=== PATIENT | male | born 1970 | race Caucasian/White ===

== ENCOUNTER 2017-07-13 07:18 | Emergency (ER) | payer OTHER ==
[~2017-07-13] VITALS: Ht 175.3 cm; Wt 96.7 kg
[~2017-07-13 07:18] MED LIST: ALBUAER2 INH; NORT10CA2 PO; OMEP40CA PO
[2017-07-13 07:27] VITALS: TEMP 36.8; Ht 175.3 cm; Wt 96.7 kg
[2017-07-13] MEDS ORDERED: PROCHLORPERAZINE 5 MG/ML 2 ML VIAL IV STA (07:37)
[2017-07-13 08:04] LABS: BASO % 0.5 %; BASO ABS # 0.04 K/uL (0-0.2); COMPLETE YES; EOS % 1.5 %; HEMATOCRIT 46.2 % (42-52); IG% 0.1 %; LYMPH % 19.8 %; LYMPH ABS # 1.44 K/uL (1.2-3.4); MEAN CORPUSCULAR HEMOGLOBIN 30.4 pg (25-34); MEAN CORPUSCULAR HGB CONC 35.3 g/dl (32-36); MEAN PLATELET VOLUME 10.2 fL (7.4-10.4); MONO % 8.7 %; NEUT % 69.4 %; PLATELET COUNT 272 K/uL (130-400); RED BLOOD COUNT 5.37 M/uL (4.7-6.1); WHITE BLOOD COUNT 7.28 K/uL (4.8-10.8)
[2017-07-13 08:26] LABS: BUN/CREATININE RATIO 8.4 (10-20); CALCIUM 8.9 mg/dl (8.5-10.1); CREATININE 1.29 mg/dl (0.60-1.40); POTASSIUM 3.3 mmol/L (3.5-5.1)
[2017-07-13 08:30] LABS: BENZODIAZEPINE, URINE NEG (NEG); COCAINE,URINE NEG (NEG); PHENCYCLIDINE, URINE NEG (NEG)
[2017-07-13] MEDS ORDERED: POTASSIUM CHLORIDE 10 MEQ TABCR PO STA (08:32)
[2017-07-13] MEDS ORDERED: PROC1TAB5 PO (08:39)
--- NOTE | 2017-07-13 08:40 | EMERGENCY ROOM VISIT NOTE ---
History First contact with patient: 07:20 Chief Complaint: VOMITING Stated Complaint: VOMITING History of Present Illness The patient is a 47 year old male who presents to the Emergency Room via EMS with complaints of nausea and vomiting since 6 PM last evening. The patient states that he has been keeping down Gatorade. He states currently he is just dry heaving. He denies any diarrhea, abdominal pain, fever, chest pain or shortness of breath. The patient states that his is leaving him for a younger man and he thinks she might have given him some of her narcotics. He states that she is a drug seeker and sees multiple providers for narcotics. He does not know what medication she takes. His son is also vomiting. Review of Systems 10 system review was performed and was negative unless stated otherwise history of present illness. Past Medical/Surgical History Medical Problems: (1) ARF (acute renal failure) (2) Chest pain (3) Dyslipidemia (4) Esophageal Reflux (5) HTN (hypertension) (6) Intermittent asthma with reliever use up to twice per week (7) Ventral hernia Surgical Problems: (1) H/O wisdom tooth extraction Family History Cancer Hypertension Kidney stones Social History Smoking Status: Former Smoker Alcohol Use: none Drug Use: none Marital Status: Housing Status: lives with family Occupation Status: unemployed Current/Historical Medications Scheduled Lisinopril (Zestril), 40 MG PO DAILY Omeprazole (Prilosec), 40 MG PO DAILY Simvastatin (Zocor), 40 MG PO QAM Scheduled PRN Albuterol (Ventolin), 2 PUFFS INH QID PRN for SOB/Wheezing Nortriptyline (Pamelor), 10 MG PO DAILY PRN for PRN Physical Exam Vital Signs Date Time Temp Pulse Resp B/P (MAP) Pulse Ox O2 Delivery O2 Flow Rate FiO2 07/13/17 07:59 83 19 177/116 94 Room Air 07/13/17 07:28 94 07/13/17 07:27 36.8 91 17 150/106 97 Room Air Physical Exam GENERAL: 47-year-old male appears in no acute distress. MENTAL: Alert and oriented 3. MOUTH: Mucosa is moist NECK: Supple, no lymphadenopathy noted. No carotid bruits noted. LUNGS: Clear auscultation without wheezes rales or rhonchi. CARDIAC: Regular rate and rhythm without murmur. Pulses is full and equal throughout. BACK: No CVA tenderness noted. ABDOMEN: Positive bowel sounds all 4 quadrants. Soft, nontender to palpation without organomegaly or masses. EXTREMITIES: No cyanosis or edema noted. Medical Decision & Procedures Laboratory Results 07/13/17 07:44 Red Blood Count 5.37, Mean Corpuscular Volume 86.0, Mean Corpuscular Hemoglobin 30.4, Mean Corpuscular Hemoglobin Concent 35.3, Mean Platelet Volume 10.2, Neutrophils (%) (Auto) 69.4, Lymphocytes (%) (Auto) 19.8, Monocytes (%) (Auto) 8.7, Eosinophils (%) (Auto) 1.5, Basophils (%) (Auto) 0.5, Neutrophils # (Auto) 5.05, Lymphocytes # (Auto) 1.44, Monocytes # (Auto) 0.63, Eosinophils # (Auto) 0.11, Basophils # (Auto) 0.04 07/13/17 07:44 Test 07/13/17 07:38 07/13/17 07:44 Urine Opiates Screen NEG (NEG) Urine Methadone, Qualitative NEG (NEG) Urine Barbiturates NEG (NEG) Urine Phencyclidine (PCP) Level NEG (NEG) Ur Amphetamine/Methamphetamine NEG (NEG) MDMA (Ecstasy) Screen NEG (NEG) Urine Benzodiazepines Screen NEG (NEG) Urine Cocaine Metabolite NEG (NEG) Urine Marijuana (THC) NEG (NEG) White Blood Count 7.28 K/uL (4.8-10.8) Red Blood Count 5.37 M/uL (4.7-6.1) Hemoglobin 16.3 g/dL (14.0-18.0) Hematocrit 46.2 % (42-52) Mean Corpuscular Volume 86.0 fL (80-100) Mean Corpuscular Hemoglobin 30.4 pg (25-34) Mean Corpuscular Hemoglobin Concent 35.3 g/dl (32-36) Platelet Count 272 K/uL (130-400) Mean Platelet Volume 10.2 fL (7.4-10.4) Neutrophils (%) (Auto) 69.4 % Lymphocytes (%) (Auto) 19.8 % Monocytes (%) (Auto) 8.7 % Eosinophils (%) (Auto) 1.5 % Basophils (%) (Auto) 0.5 % Neutrophils # (Auto) 5.05 K/uL (1.4-6.5) Lymphocytes # (Auto) 1.44 K/uL (1.2-3.4) Monocytes # (Auto) 0.63 K/uL (0.11-0.59) Eosinophils # (Auto) 0.11 K/uL (0-0.5) Basophils # (Auto) 0.04 K/uL (0-0.2) RDW Standard Deviation 41.2 fL (36.4-46.3) RDW Coefficient of Variation 13.1 % (11.5-14.5) Immature Granulocyte % (Auto) 0.1 % Immature Granulocyte # (Auto) 0.01 K/uL (0.00-0.02) Anion Gap 9.0 mmol/L (3-11) Est Creatinine Clear Calc Drug Dose 81.2 ml/min Estimated GFR () 76.0 Estimated GFR (Non- 65.6 BUN/Creatinine Ratio 8.4 (10-20) Calcium Level 8.9 mg/dl (8.5-10.1) Total Bilirubin 0.9 mg/dl (0.2-1) Direct Bilirubin 0.2 mg/dl (0-0.2) Aspartate Amino Transf (AST/SGOT) 23 U/L (15-37) Alanine Aminotransferase (ALT/SGPT) 46 U/L (12-78) Alkaline Phosphatase 68 U/L (45-117) Total Protein 7.8 gm/dl (6.4-8.2) Albumin 4.0 gm/dl (3.4-5.0) Lipase 150 U/L (73-393) Medications Administered Medications (Trade) Dose Ordered Sig/Hi Route Start Time Stop Time Status Last Admin Dose Admin Prochlorperazine Edisylate (Compazine Inj) 10 mg NOW STAT IV 07/13/17 07:37 07/13/17 07:39 DC 07/13/17 07:48 10 MG ED Course The patient was evaluated. The patient's EMR medication list were reviewed. IV access was obtained. CBC and differential, renal profile, LFTs and lipase levels were ordered. Urine drug tox screen was ordered. The patient was given Compazine 10 mg IV. She was reevaluated and was feeling better. Labs are reviewed. White count was normal. Potassium was slightly low therefore he was given KDur 10 mEq orally. Urine tox screen was negative. The patient was discharged home in stable condition. Medical Decision Differential diagnosis include gastroenteritis, GERD, peptic ulcer disease, viral gastritis [place] Drug Monitoring Program Search Results: patient reviewed within database Medication Reconcilliation Current Medication List: was personally reviewed by me Blood Pressure Screening Patient's blood pressure: Elevated blood pressure Blood pressure disposition: Referred to PCP Impression Primary Impression: Acute gastritis Additional Impressions: HTN (hypertension) Hypokalemia Departure Information Dispostion Home / Self-Care Condition GOOD Prescriptions Prochlorperazine Maleate (COMPAZINE) 10 Mg Tab 1 TAB PO Q6 for Nausea or Vomiting, #10 TAB 3 Refills Prov: Griselda Mejias PA-C 07/13/17 Referrals No Doctor, Assigned (PCP) Forms HOME CARE DOCUMENTATION FORM, IMPORTANT VISIT INFORMATION Patient Instructions ED Nausea Vomiting, [facility] Additional Instructions Push fluids. Follow bland diet. Advance diet slowly as tolerated. Take Compazine as needed for nausea or vomiting. Eat a banana daily to increase her potassium. Appointment with your family physician next week for blood pressure recheck. If symptoms persist or worsen, return to ER. Problem Qualifiers Primary Impression: Acute gastritis Gastritis type: unspecified gastritis Gastritis bleeding: without bleeding Qualified Codes: K29.00 - Acute gastritis without bleeding Additional Impressions: HTN (hypertension) Hypertension type: essential hypertension Qualified Codes: I10 - Essential ( primary) hypertension
[2017-07-13 09:42] VITALS: BP 145/92; PULSE 80; O2SAT 96
[2017-07-18] MEDS ORDERED: SIMV20TA2 PO (14:20)
[2017-07-18] MEDS ORDERED: OMEP40CA41 PO (15:26)
[2017-07-18] MEDS ORDERED: CMP/10 PO (15:26)
[2017-07-18] MEDS ORDERED: IBUP-1050 PO (15:26)
[2017-07-18] MEDS ORDERED: VNTHFA/IN INH (15:26)
[2017-07-18] MEDS ORDERED: ASPITAB42 PO (15:26)
[2017-07-18] MEDS ORDERED: LISI40TA PO (22:02)
== END 2017-07-13 09:46 | disposition home or self-care (01) ==
LOC: EDBD 07:18 → C.EDA 07:19
DX: K29.00 Acute gastritis without bleeding (principal); I10 Essential (primary) hypertension; E87.6 Hypokalemia; N17.9 Acute kidney failure, unspecified; E78.5 Hyperlipidemia, unspecified; K21.9 Gastro-esophageal reflux disease without esophagitis; Z82.49 Family history of ischemic heart disease and other diseases of the circulatory system; Z87.891 Personal history of nicotine dependence

== ENCOUNTER 2017-07-31 17:40 | Emergency (ER) | payer OTHER ==
[~2017-07-31] VITALS: Ht 175.3 cm; Wt 89.5 kg
[~2017-07-31 17:40] MED LIST changes: -ALBUAER2 INH; +ASPITAB42 PO; +CMP/10 PO; +IBUP-1050 PO; +LISI40TA PO; -NORT10CA2 PO; -OMEP40CA PO; +OMEP40CA41 PO; +SIMV20TA2 PO; +VNTHFA/IN INH
[2017-07-31 17:43] VITALS: TEMP 36.6; Ht 175.3 cm; Wt 89.5 kg
[2017-07-31] MEDS ORDERED: PROMETHAZINE HCL INJ 12.5 MG in SODIUM CHLORIDE 0.9% 50ML 50 ML IV STA (18:24)
[2017-07-31] MEDS ORDERED: OPTIRAY 320 IV PRN (18:30)
[2017-07-31] MEDS ORDERED: HYDR25TA4 PO (18:34)
[2017-07-31 18:52] LABS: URINE APPEARANCE CLEAR (CLEAR); URINE BILIRUBIN NEG (NEG); URINE COLOR YELLOW; URINE NITRITE NEG (NEG); URINE SPECIFIC GRAVITY 1.009 (1.000-1.030); UROBILINOGEN NEG (NEG); ZZUR CULT IF INDIC CLEAN CATCH NO
[2017-07-31 18:59] LABS: MANUAL MICROSCOPIC REQUIRED? NO; REVIEW REQ? NO
[2017-07-31 19:16] LABS: BASO % 0.5 %; BASO ABS # 0.05 K/uL (0-0.2); COMPLETE YES; EOS % 2.3 %; HEMATOCRIT 49.5 % (42-52); IG% 0.2 %; LYMPH % 20.2 %; MEAN CELL VOLUME 86.2 fL (80-100); MEAN CORPUSCULAR HEMOGLOBIN 30.5 pg (25-34); MEAN CORPUSCULAR HGB CONC 35.4 g/dl (32-36); MEAN PLATELET VOLUME 10.1 fL (7.4-10.4); MONO % 9.2 %; NEUT % 67.6 %; PLATELET COUNT 307 K/uL (130-400); RED BLOOD COUNT 5.74 M/uL (4.7-6.1)
[2017-07-31 19:36] LABS: ALT/SGPT 51 U/L (12-78); AST/SGOT 18 U/L (15-37); BLOOD UREA NITROGEN 10 mg/dl (7-18); BUN/CREATININE RATIO 7.7 (10-20); CALCIUM 9.3 mg/dl (8.5-10.1); CARBON DIOXIDE 25 mmol/L (21-32); CHLORIDE 102 mmol/L (98-107); CREATININE 1.23 mg/dl (0.60-1.40); GLUCOSE 120 mg/dl (70-99); POTASSIUM 3.1 mmol/L (3.5-5.1); SODIUM 139 mmol/L (136-145)
[2017-07-31 19:40] LABS: ALKALINE PHOSPHATASE 74 U/L (45-117)
[2017-07-31] MEDS ORDERED: SODIUM CHLORIDE 0.9% 1000ML 1,000 ML IV STA (19:57)
--- NOTE | 2017-07-31 20:35 | DIAGNOSTIC IMAGING REPORT ---
ABDOMEN AND PELVIS CT WITH IV CONTRAST CT DOSE: 579.27 mGy.cm HISTORY: Acute right lower quadrant abdominal pain. Initial exam. right lower quadrant abd pain TECHNIQUE: Multiaxial CT images of the abdomen and pelvis were performed following the use of intravenous contrast. 116 mL Optiray 320 IV contrast administered. A dose lowering technique was utilized adhering to the principles of ALARA. COMPARISON STUDY: CT abdomen and pelvis 08/30/2016. FINDINGS: Linear subsegmental right basilar opacity is noted suggesting scarring or atelectasis. There is a 3 mm pleural-based noncalcified pulmonary nodule of the medial basal segment left lower lobe with pleural-based noncalcified pulmonary nodule of the right lower lobe seen on image 39 series 3. Both of these findings are unchanged from comparison suggesting benign etiology. Minimal left basilar atelectasis/scarring. There is no pneumoperitoneum identified. No pneumatosis. Imaged inferior cardiac chambers are unremarkable. Prior cholecystectomy. The liver, spleen, pancreas and adrenal glands are unremarkable. No intrahepatic biliary ductal dilation. The kidneys, ureters, urinary bladder and prostate are unremarkable. Abdominal aorta is normal in both course and caliber. No bulky adenopathy identified. 7 mm periaortic lymph node seen on image 183 series 3 is likely physiologic. There is no bowel obstruction. No focal bowel wall thickening. The large bowel is also within normal limits. The appendix appears normal within the right lower quadrant without wall thickening or inflammatory changes. Soft tissues are within normal limits. The bones appear intact. Degenerative changes of the left SI joint. IMPRESSION: 1. No acute intra-abdominal or intrapelvic abnormality identified, specifically the appendix appears normal. 2. Prior cholecystectomy. Electronically signed by: Karl Riddle M.D. 07/31/2017 8:33 PM Dictated Date/Time: 07/31/2017 8:27 PM
--- NOTE | 2017-07-31 21:14 | EMERGENCY ROOM VISIT NOTE ---
History First contact with patient: 18:09 Chief Complaint: HYPERTENSION Stated Complaint: MCLEAN,DIZZY,HTN History of Present Illness The patient is a 47 year old male who presents to the Emergency Room with complaints of hypertension. The patient admits to increased stress recently. He states that he has been checking his blood pressure at home and it has been elevated today. He states that today, the blood pressure was as high as 150/ 100 and his heart rate was 111. He was recently started on hydrochlorothiazide for his blood pressure and first took this this morning. He feels this is what caused his elevated blood pressure. The patient also reports to right lower quadrant abdominal pain intermittently for the past 2 weeks. He states he has also had nausea and diarrhea today. He has had no vomiting. He reports he does have some headache and dizziness due to a head injury which occurred a few weeks ago. There has been no change in these symptoms. He denies chest pain or shortness of breath. Review of Systems A complete 10 point review of systems was reviewed with the patient with pertinent positives and negatives as per history of present illness. All else were negative. Past Medical/Surgical History Medical Problems: (1) ARF (acute renal failure) (2) Chest pain (3) Dyslipidemia (4) Esophageal Reflux (5) HTN (hypertension) (6) Intermittent asthma with reliever use up to twice per week (7) Ventral hernia Surgical Problems: (1) H/O wisdom tooth extraction Family History Cancer Hypertension Kidney stones Social History Smoking Status: Never Smoker Alcohol Use: none Drug Use: none Marital Status: Housing Status: lives with family Occupation Status: unemployed Current/Historical Medications Scheduled Albuterol Hfa (Ventolin Hfa), 2 PUFFS INH Q6H Hydrochlorothiazide (Hctz), 25 MG PO DAILY Lisinopril (Zestril), 40 MG PO DAILY Omeprazole (Prilosec), 40 MG PO DAILY Prochlorperazine Maleate (Prochlorperazine Maleate), 10 MG PO PRN UD Simvastatin (Zocor), 40 MG PO QAM Physical Exam Vital Signs Date Time Temp Pulse Resp B/P (MAP) Pulse Ox O2 Delivery O2 Flow Rate FiO2 07/31/17 21:36 78 18 138/97 97 07/31/17 20:29 77 17 135/101 98 Room Air 07/31/17 19:30 80 20 126/87 95 Room Air 07/31/17 19:13 87 07/31/17 18:56 96 16 133/91 97 Room Air 07/31/17 17:43 36.6 104 16 152/98 98 Room Air Physical Exam VITALS: Vitals are noted on the nurse's note and reviewed by myself. Vital signs stable. GENERAL: This is a 47-year-old male, in no acute distress, nondiaphoretic, well- developed well-nourished. SKIN: The skin was without rashes, erythema, edema, or bruising. HEAD: Normocephalic atraumatic. EARS: External auditory canals clear, tympanic membranes pearly myrick without erythema or effusion bilaterally. EYES: Pupils equal round and reactive to light and accommodation. Conjunctivae without injection, sclerae without icterus. Extraocular movements intact. MOUTH: Mucous membranes moist. Tonsils are not enlarged. Pharynx without erythema or exudate. NECK: Supple without nuchal rigidity. No lymphadenopathy. HEART: Regular rate and rhythm without murmurs gallops or rubs. LUNGS: Clear to auscultation bilaterally without wheezes, rales or rhonchi. ABDOMEN: Obese abdomen. Positive bowel sounds x 4. Soft, tenderness to palpation in the right lower quadrant. NEURO: Patient was alert and oriented to person place and time. Normal sensation to light and sharp touch. No focal neurological deficits. Medical Decision & Procedures ER Provider Diagnostic Interpretation: ABDOMEN AND PELVIS CT WITH IV CONTRAST CT DOSE: 579.27 mGy.cm HISTORY: Acute right lower quadrant abdominal pain. Initial exam. right lower quadrant abd pain TECHNIQUE: Multiaxial CT images of the abdomen and pelvis were performed following the use of intravenous contrast. 116 mL Optiray 320 IV contrast administered. A dose lowering technique was utilized adhering to the principles of ALARA. COMPARISON STUDY: CT abdomen and pelvis 08/30/2016. FINDINGS: Linear subsegmental right basilar opacity is noted suggesting scarring or atelectasis. There is a 3 mm pleural-based noncalcified pulmonary nodule of the medial basal segment left lower lobe with pleural-based noncalcified pulmonary nodule of the right lower lobe seen on image 39 series 3. Both of these findings are unchanged from comparison suggesting benign etiology. Minimal left basilar atelectasis/scarring. There is no pneumoperitoneum identified. No pneumatosis. Imaged inferior cardiac chambers are unremarkable. Prior cholecystectomy. The liver, spleen, pancreas and adrenal glands are unremarkable. No intrahepatic biliary ductal dilation. The kidneys, ureters, urinary bladder and prostate are unremarkable. Abdominal aorta is normal in both course and caliber. No bulky adenopathy identified. 7 mm periaortic lymph node seen on image 183 series 3 is likely physiologic. There is no bowel obstruction. No focal bowel wall thickening. The large bowel is also within normal limits. The appendix appears normal within the right lower quadrant without wall thickening or inflammatory changes. Soft tissues are within normal limits. The bones appear intact. Degenerative changes of the left SI joint. IMPRESSION: 1. No acute intra-abdominal or intrapelvic abnormality identified, specifically the appendix appears normal. 2. Prior cholecystectomy. Laboratory Results 07/31/17 18:30 Red Blood Count 5.74, Mean Corpuscular Volume 86.2, Mean Corpuscular Hemoglobin 30.5, Mean Corpuscular Hemoglobin Concent 35.4, Mean Platelet Volume 10.1, Neutrophils (%) (Auto) 67.6, Lymphocytes (%) (Auto) 20.2, Monocytes (%) (Auto) 9.2, Eosinophils (%) (Auto) 2.3, Basophils (%) (Auto) 0.5, Neutrophils # (Auto) 6.69, Lymphocytes # (Auto) 2.00, Monocytes # (Auto) 0.91, Eosinophils # (Auto) 0.23, Basophils # (Auto) 0.05 07/31/17 18:30 Test 07/31/17 18:30 White Blood Count 9.90 K/uL (4.8-10.8) Red Blood Count 5.74 M/uL (4.7-6.1) Hemoglobin 17.5 g/dL (14.0-18.0) Hematocrit 49.5 % (42-52) Mean Corpuscular Volume 86.2 fL (80-100) Mean Corpuscular Hemoglobin 30.5 pg (25-34) Mean Corpuscular Hemoglobin Concent 35.4 g/dl (32-36) Platelet Count 307 K/uL (130-400) Mean Platelet Volume 10.1 fL (7.4-10.4) Neutrophils (%) (Auto) 67.6 % Lymphocytes (%) (Auto) 20.2 % Monocytes (%) (Auto) 9.2 % Eosinophils (%) (Auto) 2.3 % Basophils (%) (Auto) 0.5 % Neutrophils # (Auto) 6.69 K/uL (1.4-6.5) Lymphocytes # (Auto) 2.00 K/uL (1.2-3.4) Monocytes # (Auto) 0.91 K/uL (0.11-0.59) Eosinophils # (Auto) 0.23 K/uL (0-0.5) Basophils # (Auto) 0.05 K/uL (0-0.2) RDW Standard Deviation 40.9 fL (36.4-46.3) RDW Coefficient of Variation 13.0 % (11.5-14.5) Immature Granulocyte % (Auto) 0.2 % Immature Granulocyte # (Auto) 0.02 K/uL (0.00-0.02) Urine Color YELLOW Urine Appearance CLEAR (CLEAR) Urine pH 6.0 (4.5-7.5) Urine Specific [place] 1.009 (1.000-1.030) Urine Protein NEG (NEG) Urine Glucose (UA) NEG (NEG) Urine Ketones NEG (NEG) Urine Occult Blood NEG (NEG) Urine Nitrite NEG (NEG) Urine Bilirubin NEG (NEG) Urine Urobilinogen NEG (NEG) Urine Leukocyte Esterase NEG (NEG) Anion Gap 12.0 mmol/L (3-11) Est Creatinine Clear Calc Drug Dose 82.2 ml/min Estimated GFR () 80.5 Estimated GFR (Non- 69.5 BUN/Creatinine Ratio 7.7 (10-20) Calcium Level 9.3 mg/dl (8.5-10.1) Total Bilirubin 0.6 mg/dl (0.2-1) Aspartate Amino Transf (AST/SGOT) 18 U/L (15-37) Alanine Aminotransferase (ALT/SGPT) 51 U/L (12-78) Alkaline Phosphatase 74 U/L (45-117) Troponin I < 0.015 ng/ml (0-0.045) Total Protein 8.5 gm/dl (6.4-8.2) Albumin 4.3 gm/dl (3.4-5.0) Globulin 4.2 gm/dl (2.5-4.0) Albumin/Globulin Ratio 1.0 (0.9-2) Lipase 186 U/L (73-393) Medications Administered Medications (Trade) Dose Ordered Sig/Hi Route Start Time Stop Time Status Last Admin Dose Admin Promethazine HCl 12.5 mg/Sodium Chloride 50.5 ml @ 204 mls/hr NOW STAT IV 07/31/17 18:24 07/31/17 18:38 DC 07/31/17 18:57 204 MLS/HR Sodium Chloride 1,000 ml @ 999 mls/hr Q1H1M STAT IV 07/31/17 19:57 07/31/17 20:57 DC 07/31/17 20:29 999 MLS/HR ECG Rate (beats per minute): 92 Rhythm: normal sinus Findings: no acute ischemic change, no ectopy Medical Decision Differential diagnosis includes appendicitis, pancreatitis, gastroenteritis, colitis, hypertensive urgency, among others. The patient is a 47-year-old male who presents today complaining of hypertension. Patient also notes abdominal pain, nausea and diarrhea. He states that the abdominal pain is new for him, although he has been here multiple times in the past for complaints of abdominal pain with many negative workups. Labs are unremarkable, with no leukocytosis, anemia or concerning electrolyte abnormalities. CT was performed and was unremarkable. The patient' s blood pressure normalized without any treatment. He was instructed to continue the hydrochlorothiazide as prescribed. I certainly do not think this is causing his hypertension as the patient suggests. He will need follow-up with his primary care provider for further evaluation. Based on the patient's presentation and work up, I feel the patient is stable for outpatient treatment. The patient was educated to return to the emergency department for any worsening of their current condition or new/concerning symptoms. He will follow up with his PCP. Medication Reconcilliation Current Medication List: was personally reviewed by me Blood Pressure Screening Patient's blood pressure: Normal blood pressure Impression Primary Impression: Right lower quadrant abdominal pain Departure Information Dispostion Home / Self-Care Condition GOOD Referrals Bernadine Marmolejo D.OHansa (PCP) Patient Instructions [facility] Additional Instructions You have been treated in the Emergency Department your Abdominal Pain. Laboratory results and imaging studies have ruled out any emergent causes for your abdominal pain which would warrant admission or surgery. For pain control, you can use the following [id number] medicines (if >12 yo): - Regular strength (325mg/tab) Tylenol (acetaminophen) 2 tabs every 4-6 hours as needed. Do not exceed 12 tablets in a 24 hour period. Avoid taking more than 4 grams (4000 mg) of Tylenol per day. This includes any other sources of acetaminophen you may take on a regular basis. - Regular strength (200 mg/tab) Advil (ibuprofen) 1-2 tabs every 4-6 hours as needed. Do not exceed a dose of 3200 mg per day. Drink plenty of water and stay well hydrated. As with any trip to the Emergency Department, you should follow-up with your Primary Care Provider from today's visit. Return to the emergency department if your symptoms persist despite treatment plan outlined above or if the following symptoms occur: increased fevers, chills , worsening nausea/vomiting, blood in your stool or urine.
[2017-07-31 21:36] VITALS: BP 138/97; PULSE 78; O2SAT 97
== END 2017-07-31 21:25 | disposition home or self-care (01) ==
LOC: C.EDB 17:41 → C.EDA 21:25
DX: R10.31 Right lower quadrant pain (principal); I10 Essential (primary) hypertension; E78.5 Hyperlipidemia, unspecified; K21.9 Gastro-esophageal reflux disease without esophagitis; N17.9 Acute kidney failure, unspecified; Z80.9 Family history of malignant neoplasm, unspecified; Z82.49 Family history of ischemic heart disease and other diseases of the circulatory system; Z84.1 Family history of disorders of kidney and ureter; J45.20 Mild intermittent asthma, uncomplicated; Z79.899 Other long term (current) drug therapy

== ENCOUNTER 2017-11-11 21:41 | Emergency (ER) | payer OTHER ==
[~2017-11-11] VITALS: Ht 172.7 cm; Wt 95.3 kg
[~2017-11-11 21:41] MED LIST changes: -ASPITAB42 PO; -IBUP-1050 PO
[2017-11-11 21:43] VITALS: TEMP 37.1; Ht 172.7 cm; Wt 95.3 kg
[2017-11-11] MEDS ORDERED: SODIUM CHLORIDE 0.9% 500ML 500 ML IV STA (22:20)
[2017-11-11 22:30] LABS: BASO % 0.5 %; BASO ABS # 0.06 K/uL (0-0.2); EOS % 2.4 %; EOS ABS # 0.26 K/uL (0-0.5); HEMOGLOBIN 16.7 g/dL (14.0-18.0); IG# 0.04 K/uL (0.00-0.02); LYMPH % 20.7 %; LYMPH ABS # 2.29 K/uL (1.2-3.4); MEAN CELL VOLUME 85.1 fL (80-100); MEAN CORPUSCULAR HEMOGLOBIN 30.3 pg (25-34); MEAN CORPUSCULAR HGB CONC 35.5 g/dl (32-36); MEAN PLATELET VOLUME 9.6 fL (7.4-10.4); MONO % 7.7 %; MONO ABS # 0.85 K/uL (0.11-0.59); NEUT % 68.3 %; NEUT ABS # 7.56 K/uL (1.4-6.5); PLATELET COUNT 304 K/uL (130-400); RED CELL DISTRIBUTION WIDTH SD 40.3 fL (36.4-46.3); WHITE BLOOD COUNT 11.06 K/uL (4.8-10.8)
[2017-11-11 22:59] LABS: ALBUMIN 4.4 gm/dl (3.4-5.0); ALT/SGPT 53 U/L (12-78); BLOOD UREA NITROGEN 11 mg/dl (7-18); CALCIUM 9.3 mg/dl (8.5-10.1); CARBON DIOXIDE 29 mmol/L (21-32); CREATININE 1.37 mg/dl (0.60-1.40); GLUCOSE 109 mg/dl (70-99); LIPASE 169 U/L (73-393); POTASSIUM 3.7 mmol/L (3.5-5.1); SODIUM 139 mmol/L (136-145)
[2017-11-11] MEDS ORDERED: ASCO1CAP3 PO (23:00)
--- NOTE | 2017-11-11 23:08 | DIAGNOSTIC IMAGING REPORT ---
ABDOMEN ULTRASOUND FOR HERNIA CLINICAL HISTORY: periumbilical pain COMPARISON STUDY: Abdomen and pelvis CT 07/31/2017. FINDINGS: Transabdominal scanning within the periumbilical region was performed. No hernia, mass, fluid collections identified at the abdominal wall. IMPRESSION: No hernia, mass, or fluid collections at the periumbilical abdominal wall. Electronically signed by: Alonzo Graham M.D. 11/11/2017 11:07 PM Dictated Date/Time: 11/11/2017 11:06 PM
[2017-11-11 23:11] LABS: ALKALINE PHOSPHATASE 75 U/L (45-117); AST/SGOT 27 U/L (15-37); TOTAL PROTEIN 8.5 gm/dl (6.4-8.2)
--- NOTE | 2017-11-11 23:18 | DIAGNOSTIC IMAGING REPORT ---
HEAD CT NONCONTRAST CT DOSE: 614.27 mGy.cm HISTORY: Headache. Hypertension. TECHNIQUE: Multiaxial CT images of the head were performed without the use of intravenous contrast. Automated exposure control was utilized for this study. A dose lowering technique was utilized adhering to the principles of ALARA. Comparison: Head CT 07/18/2017. Findings: Partial opacification of the ethmoid air cells and a 1.8 cm polyp within the left nasal cavity. This appears similar to the prior study. The mastoid air cells are clear. The calvarium and skull base are intact. The ventricles and sulci are within normal limits. There is no mass, hematoma, midline shift, or acute infarct. Impression: No significant change compared to the prior study. No acute intracranial abnormality. Electronically signed by: Alonzo Graham M.D. 11/11/2017 11:17 PM Dictated Date/Time: 11/11/2017 11:13 PM
[2017-11-11] MEDS ORDERED: OPTIRAY 320 IV PRN (23:45)
[2017-11-12 01:21] VITALS: BP 130/99; PULSE 82; O2SAT 99
--- NOTE | 2017-11-12 04:16 | EMERGENCY ROOM VISIT NOTE ---
History First contact with patient: 22:11 Chief Complaint: ABDOMINAL PAIN Stated Complaint: BLOOD PRESSURE HIGH,STOMACH PAIN Nursing Triage Summary: abd pain and htn History of Present Illness The patient is a 47 year old male who presents to the Emergency Room with complaints of occasional headache, high blood pressure abdominal discomfort for the past week or so. Patient states his blood pressure normally runs 120/80. He does take blood pressure medicine. Today's blood pressure was 150/100 at home. He has had a slight occasional headache throughout the week. Nothing severe. Patient states that his abdomen has been bothering him for the past few days throughout the abdomen describes cramping, ranging in severity 3 out of 10. Nothing makes it better or worse. He has had his gallbladder out. Patient denies chest pain, dyspnea, localized weakness, fever, chills, nausea, vomiting, diarrhea, back pain, flank pain, urinary symptoms. He is tolerating p.o. fluids and food. Review of Systems An 10 system review of systems was completed with positives and pertinent negatives listed in the HPI. Past Medical/Surgical History Medical Problems: (1) ARF (acute renal failure) (2) Chest pain (3) Dyslipidemia (4) Esophageal Reflux (5) HTN (hypertension) (6) Intermittent asthma with reliever use up to twice per week (7) Ventral hernia Surgical Problems: (1) H/O wisdom tooth extraction Cholecystectomy Family History Cancer Hypertension Kidney stones Social History Smoking Status: Never Smoker Alcohol Use: none Drug Use: none Marital Status: Housing Status: lives with family Occupation Status: unemployed Current/Historical Medications Scheduled Albuterol Hfa (Ventolin Hfa), 2 PUFFS INH Q6H Ascorbic Acid (Vitamin C), 500 MG PO DAILY Lisinopril (Zestril), 40 MG PO DAILY Omeprazole (Prilosec), 40 MG PO DAILY Simvastatin (Zocor), 40 MG PO DAILY Physical Exam Vital Signs Date Time Temp Pulse Resp B/P (MAP) Pulse Ox O2 Delivery O2 Flow Rate FiO2 11/12/17 01:21 82 18 130/99 99 Room Air 11/12/17 00:15 85 18 150/103 98 Room Air 11/11/17 22:32 86 20 157/120 99 Room Air 11/11/17 22:27 81 11/11/17 22:25 Room Air 11/11/17 21:43 37.1 99 20 171/124 99 Room Air Physical Exam VITALS: Vitals are noted on the nurse's note and reviewed by myself. Vital signs hypertensive GENERAL: Pleasant male anxious appearing, in no acute distress, nondiaphoretic, well-developed well-nourished. SKIN: The skin was without rashes, erythema, edema, or bruising. There is no tenting of the skin. Capillary reflex less than 2 seconds. HEAD: Normocephalic atraumatic. EARS: External auditory canals clear, tympanic membranes pearly myrick without erythema or effusion bilaterally. EYES: Pupils equal round and reactive to light and accommodation. Conjunctivae without injection, sclerae without icterus. Extraocular movements intact. NOSE: Patent, turbinates without inflammation or discharge. No sinus tenderness. MOUTH: Mucous membranes moist. Pharynx without erythema or exudate. Uvula midline. Airway patent. Tongue does not deviate. NECK: Supple without nuchal rigidity. No lymphadenopathy. No thyromegaly. Cervical spine is nontender. No JVD. HEART: Regular rate and rhythm without murmurs gallops or rubs. LUNGS: Clear to auscultation bilaterally without wheezes, rales or rhonchi. No dullness to percussion. No retractions or accessory muscle use. ABDOMEN: Positive bowel sounds x 4. Normal tympanic percussion. Soft, minimally tender lower abdomen, no CVA tenderness, without masses or organomegaly. Genao sign negative. No guarding or rebound tenderness. MUSCULOSKELETAL: No muscle atrophy, erythema, or edema noted. NEURO: Patient was alert and oriented to person place and time. Normal sensation to light and sharp touch. No focal neurological deficits. Medical Decision & Procedures Laboratory Results 11/11/17 22:18 Red Blood Count 5.52, Mean Corpuscular Volume 85.1, Mean Corpuscular Hemoglobin 30.3, Mean Corpuscular Hemoglobin Concent 35.5, Mean Platelet Volume 9.6, Neutrophils (%) (Auto) 68.3, Lymphocytes (%) (Auto) 20.7, Monocytes (%) (Auto) 7.7, Eosinophils (%) (Auto) 2.4, Basophils (%) (Auto) 0.5, Neutrophils # (Auto) 7.56, Lymphocytes # (Auto) 2.29, Monocytes # (Auto) 0.85, Eosinophils # (Auto) 0.26, Basophils # (Auto) 0.06 11/11/17 22:18 Test 11/11/17 22:18 White Blood Count 11.06 K/uL (4.8-10.8) Red Blood Count 5.52 M/uL (4.7-6.1) Hemoglobin 16.7 g/dL (14.0-18.0) Hematocrit 47.0 % (42-52) Mean Corpuscular Volume 85.1 fL (80-100) Mean Corpuscular Hemoglobin 30.3 pg (25-34) Mean Corpuscular Hemoglobin Concent 35.5 g/dl (32-36) Platelet Count 304 K/uL (130-400) Mean Platelet Volume 9.6 fL (7.4-10.4) Neutrophils (%) (Auto) 68.3 % Lymphocytes (%) (Auto) 20.7 % Monocytes (%) (Auto) 7.7 % Eosinophils (%) (Auto) 2.4 % Basophils (%) (Auto) 0.5 % Neutrophils # (Auto) 7.56 K/uL (1.4-6.5) Lymphocytes # (Auto) 2.29 K/uL (1.2-3.4) Monocytes # (Auto) 0.85 K/uL (0.11-0.59) Eosinophils # (Auto) 0.26 K/uL (0-0.5) Basophils # (Auto) 0.06 K/uL (0-0.2) RDW Standard Deviation 40.3 fL (36.4-46.3) RDW Coefficient of Variation 13.0 % (11.5-14.5) Immature Granulocyte % (Auto) 0.4 % Immature Granulocyte # (Auto) 0.04 K/uL (0.00-0.02) Anion Gap 8.0 mmol/L (3-11) Est Creatinine Clear Calc Drug Dose 74.6 ml/min Estimated GFR () 70.7 Estimated GFR (Non- 61.0 BUN/Creatinine Ratio 8.0 (10-20) Calcium Level 9.3 mg/dl (8.5-10.1) Magnesium Level 2.5 mg/dl (1.8-2.4) Total Bilirubin 0.5 mg/dl (0.2-1) Direct Bilirubin 0.1 mg/dl (0-0.2) Aspartate Amino Transf (AST/SGOT) 27 U/L (15-37) Alanine Aminotransferase (ALT/SGPT) 53 U/L (12-78) Alkaline Phosphatase 75 U/L (45-117) Troponin I < 0.015 ng/ml (0-0.045) Total Protein 8.5 gm/dl (6.4-8.2) Albumin 4.4 gm/dl (3.4-5.0) Lipase 169 U/L (73-393) Thyroid Stimulating Hormone (TSH) 0.695 uIu/ml (0.300-4.500) Medications Administered Medications (Trade) Dose Ordered Sig/Hi Route Start Time Stop Time Status Last Admin Dose Admin Sodium Chloride 500 ml @ 999 mls/hr Q31M STAT IV 11/11/17 22:20 11/11/17 22:50 DC 11/11/17 22:20 999 MLS/HR ED Course Prior records/ancillary studies reviewed. Triage Nursing notes reviewed. Additional history obtained from family The patient's history was concerning for headache, hypertension and abdominal pain. Differential diagnosis: Etiologies such as appendicitis, diverticulitis, PUD, biliary pathology, UTI, pancreatitis, obstruction, mesenteric ischemia, aortic pathology, infections, inflammatory bowel disease, renal colic, cardiac, and organ damage, neurologic, as well as others were entertained. Physical examination findings: As above. ER treatment provided: IV fluids, Ativan On reassessment the patient felt better. Diagnostics interpreted by me: ECG: Normal sinus, normal intervals, no acute ST-T wave changes. Impression normal sinus rhythm interpreted by myself The labs revealed mild leukocytosis. Negative troponin. Imaging studies: CT ABDOMEN & PELVIS With Contrast: Comparison 07/31/2017 Liquid stool distal colon consistent with diarrhea No evidence of wall thickening or pericolonic inflammatory change Normal caliber appendix without secondary signs Prominence of small bowel at the midabdomen with scattered fluid levels may represent enteritis or focal ileus with a developing or partial obstruction not entirely excluded No evidence of wall thickening or pneumatosis No free air or free fluid Abdominal solid organs appear within limits Status post cholecystectomy Radiologist: Derrell Chavez M.D. HISTORY: Headache. Hypertension. TECHNIQUE: Multiaxial CT images of the head were performed without the use of intravenous contrast. Automated exposure control was utilized for this study. A dose lowering technique was utilized adhering to the principles of ALA. Comparison: Head CT 07/18/2017. Findings: Partial opacification of the ethmoid air cells and a 1.8 cm polyp within the left nasal cavity. This appears similar to the prior study. The mastoid air cells are clear. The calvarium and skull base are intact. The ventricles and sulci are within normal limits. There is no mass, hematoma, midline shift, or acute infarct. Impression: No significant change compared to the prior study. No acute intracranial abnormality. Electronically signed by: Alonzo Graham M.D. Exam and history seem consistent with hypertension that resolved on its own after Ativan and abdominal discomfort that could be related to an early diarrheal illness or developing ileus. Patient states he has been moving his bowels. No history of bowel obstructions in the past. He has had his gallbladder out though. He was advised to clear liquid diet until the pain resolves in the follow-up family here in a day or 2 here in the ER sooner for abdominal pain, fevers, vomiting, worsening signs or symptoms or as needed. Patient did not have an acute abdomen on exam. He is well-appearing. He is tolerating fluids. His main concern for coming in tonight was the blood pressure. By the evaluation outlined above emergent etiologies such as appendicitis, diverticulitis, PUD, biliary pathology, UTI, pancreatitis, obstruction, mesenteric ischemia, aortic pathology, infections, inflammatory bowel disease, renal colic, as well as others were deemed relatively unlikely. He was advised to monitor his blood pressure. The pt informed about the findings as listed above. All questions were answered and pleased with the treatment. Return instructions were outlined and the patient was discharged in stable condition. Referral: The patient was referred back to their primary care physician for follow-up in 2 to 3 days for a recheck of the current condition. Case reviewed with my attending The chart was completed utilizing [employer] Speech voice recognition software. Grammatical errors, random word insertions, pronoun errors, and incomplete sentences are an occassional consequence of this system due to software limitations, ambient noise, and hardware issues. Any formal questions or concerns about the content, text, or information contained within the body of this dictation should be directly addressed to the physician food service assistant for clarification. Medical Decision As above Medication Reconcilliation Current Medication List: was personally reviewed by me Blood Pressure Screening Patient's blood pressure: Elevated blood pressure Blood pressure disposition: Elevated BP felt to be situational Impression Primary Impression: HTN (hypertension) Additional Impression: Abdominal discomfort Departure Information Dispostion Home / Self-Care Condition GOOD Forms Call Back Authorization, HOME CARE DOCUMENTATION FORM, IMPORTANT VISIT INFORMATION Patient Instructions High Blood Pressure, Abdominal Pain - [facility], My [facility] Additional Instructions DO NOT drive, drink alcohol, operate machinery, or perform dangerous activities today. You were given medications in the ER that can affect your ability to safely function or operate a vehicle. Clear liquid diet until you are your abdominal discomfort resolves. Monitor your blood pressure. It was high today. Ibuprofen(Motrin, Advil) may be used for fever or pain. Use 600mg every six hours as needed. Take with food. Avoid using more than 2400mg in a 24 hour period. Do not use 2400mg per day for more than three consecutive days without physician direction. Prolonged inappropriate use can lead to stomach upset or ulcers. (AND/OR) Acetaminophen(Tylenol) may be used for fever or pain. Use 1000mg every six hours as needed. Avoid using more than 3000mg in a 24 hour period. Rest and drink plenty of fluids as tolerated. Slow sips of water or sports drinks are recommended instead of large amounts all at once. Continue current medications. Return to the ER immediately for worsening or persistent abdominal pain, vomiting, fevers, chest pains, difficulty breathing, black or bloody stools, worsening of your condition, or as needed. Follow up with your primary physician in 24 hours for a recheck of your current condition. Problem Qualifiers Primary Impression: HTN (hypertension) Hypertension type: unspecified Qualified Codes: I10 - Essential (primary) hypertension
--- NOTE | 2017-11-12 07:14 | DIAGNOSTIC IMAGING REPORT ---
ABDOMEN AND PELVIS CT WITH IV CONTRAST CT DOSE: 718.67 mGy.cm HISTORY: Acute right lower and right mid abdominal pain right lower and mid abd pain TECHNIQUE: Multiaxial CT images of the abdomen and pelvis were performed following the use of intravenous contrast. A dose lowering technique was utilized adhering to the principles of ALARA. COMPARISON STUDY: CT abdomen and pelvis 07/31/2017 FINDINGS: Lung bases appear generally clear. There is no pneumatosis or pneumoperitoneum identified. Mild motion artifact limits evaluation of the pelvic structures. Imaged inferior cardiac chambers are unremarkable. Prior cholecystectomy. The liver, spleen, pancreas and adrenal glands are within normal limits. Minimal nonspecific bilateral perinephric stranding. No renal calculi, hydronephrosis or obstructive uropathy. Ureters urinary bladder and prostate are unremarkable. Minimal calcification of the abdominal aorta without aneurysm. No bulky adenopathy identified. Mildly prominent nondilated loops of small bowel are seen within the mid and lower abdomen with a single dilated loops seen on image 204 series 3 measuring 3.2 cm transversely. These loops are fluid-filled with air-fluid levels. Air-fluid levels are also noted throughout loops of nondilated large bowel. Appendix appears normal within the right lower quadrant of the abdomen. Soft tissues are unremarkable. Bones appear intact. IMPRESSION: 1. Normal appearance of the appendix. 2. Multiple fluid-filled loops with air-fluid levels are seen throughout both small and large bowel suggests enteritis or ileus with diarrheal state. A single loop of mildly dilated small bowel is noted within the midabdomen measuring 3.2 cm. No evidence of high-grade small bowel obstruction. 3. Prior cholecystectomy. Electronically signed by: Karl Riddle M.D. 11/12/2017 7:12 AM Dictated Date/Time: 11/12/2017 7:07 AM
== END 2017-11-12 01:29 | disposition home or self-care (01) ==
LOC: C.EDB 21:42 → C.EDC 11-12 01:29
DX: I10 Essential (primary) hypertension (principal); R10.9 Unspecified abdominal pain; E78.5 Hyperlipidemia, unspecified; K21.9 Gastro-esophageal reflux disease without esophagitis; J45.20 Mild intermittent asthma, uncomplicated; Z80.9 Family history of malignant neoplasm, unspecified; Z82.49 Family history of ischemic heart disease and other diseases of the circulatory system; Z84.1 Family history of disorders of kidney and ureter

== ENCOUNTER 2021-06-21 13:00 | Observation (INO) ==
--- NOTE | 2021-06-21 13:27 | XRay Report ---
XR chest 1V portable INDICATION: Atypical chest pain. TECHNIQUE: Single frontal radiograph of the chest was obtained. Comparison: Comparison is made to chest one view 06/19/2021 FINDINGS: No lines and tubes are seen. The cardiomediastinal silhouette is normal. Lungs are underinflated but clear. No evidence of pleural effusion or pneumothorax. IMPRESSION: No acute chest disease. ACT 112: Negative or not required by law. Electronically signed by: Eleuterio Santos M.D. 06/21/2021 1:26 PM
[2021-06-21 13:30] LABS: Basophils # (auto) 0.04 K/uL (0-0.2); Basophils % (auto) 0.4 %; Eosinophils # (auto) 0.33 K/uL (0-0.5); Eosinophils % (auto) 3.7 %; Hematocrit (blood only) 48.3 % (42-52); Immature Granulocytes # (auto) 0.02 K/uL (0.00-0.02); Immature Granulocytes % (auto) 0.2 %; Lymphocytes # (auto) 1.78 K/uL (1.2-3.4); Lymphocytes % (auto) 19.9 %; Mean Corpuscular Hemoglobin 30.5 pg (25-34); Mean Corpuscular Hgb Conc 35.2 g/dL (32-36); Mean Corpuscular Volume 86.6 fL (80-100); Mean Platelet Volume 10.2 fL (7.4-10.4); Monocytes % (auto) 8.9 %; Neutrophils # (auto) 5.97 K/uL (1.4-6.5); Neutrophils % (auto) 66.9 %; Platelet Count 379 K/uL (130-400); RDW Coefficient of Variation 12.8 % (11.5-14.5); RDW Standard Deviation 40.8 fL (36.4-46.3); Red Blood Count 5.58 M/uL (4.7-6.1); White Blood Count 8.94 K/uL (4.8-10.8)
[2021-06-21 13:41] LABS: Alanine Aminotransferase 77 U/L (12-78); Albumin Level 4.3 gm/dl (3.4-5.0); Aspartate Aminotransferase 32 U/L (15-37); BUN Creatinine Ratio 6.8 (10-20); Blood Urea Nitrogen 9 mg/dl (7-18); Calcium 9.8 mg/dl (8.5-10.1); Carbon Dioxide 24 mmol/L (21-32); Chloride 104 mmol/L (98-107); Creatinine Clr Calc Pharmacy 74.5 ml/min; Est GFR (African American) 67.5 ml/min; Est GFR (Non-African American) 58.3 ml/min; Glucose 153 mg/dl (70-99); Potassium 3.4 mmol/L (3.5-5.1); Sodium 135 mmol/L (136-145)
[2021-06-21 13:46] LABS: Albumin Globulin Ratio 1.1 (0.9-2); Alkaline Phosphatase 76 U/L (45-117); Bilirubin,Total 0.7 mg/dl (0.2-1); Total Protein 8.3 gm/dl (6.4-8.2); Troponin I < 0.015 ng/ml (0-0.045)
[2021-06-21 13:48] LABS: Partial Thromboplastin Time 27.6 Seconds (21.0-31.0)
[2021-06-21] MEDS ORDERED: OPTIRAY 320 125ml IV ONE (14:07)
--- NOTE | 2021-06-21 14:19 | CT Scan Report ---
CT angio chest PE protocol CT DOSE: 648.66 mGy.cm HISTORY: 51 years-old Male with ro PE. Acute shortness of breath TECHNIQUE: Multiple CTA images of the chest were obtained after the intravenous administration of 120 ml Optiray. Coronal and sagittal MIPS were obtained from the axial data set and were submitted for review. All measurements were obtained according to NASCET criteria. A dose lowering technique was u tilized adhering to the principles of ALARA. COMPARISON: Chest radiograph 06/21/2021 FINDINGS: CTA: The heart is normal in size. No pericardial effusion. Mild atherosclerosis of the thoracic aortic arc h without aneurysm or dissection. Patency of the imaged great vessels. The pulmonary artery appears n ormal. The subsegmental branches are not well evaluated secondary to contrast bolus timing. No fillin g defects identified to suggest thromboembolic disease. CT CHEST: Ill-defined hypodense 10 mm nodule of the posterior left thyroid. No adenopathy. No pneumothorax, ple ural effusion or overt pulmonary edema. Mild bronchial wall thickening. No airspace consolidation typ ical for pneumonia. No suspicious pulmonary nodules or masses. Inferior lung bases are partially imag ed. Small subcentimeter focus of linear scarring/atelectasis of the left upper lobe. 3 mm fissural no dule of the left midlung is suggestive of a benign lymph node. The central airways are patent. Hepatic steatosis. No acute process of the imaged upper abdomen. Unremarkable soft tissues. No acute fracture. IMPRESSION: 1. No pulmonary emboli. 2. No pleural effusion or airspace consolidation. 3. Mild bronchial wall thickening may represent bronchitis or reactive airway disease. 4. Hepatic steatosis. ACT 112: Negative or not required by law. The above report was generated using voice recognition software. It may contain grammatical, syntax o r spelling errors. Electronically signed by: Sergo Riddle M.D. 06/21/2021 2:17 PM
--- NOTE | 2021-06-21 15:26 | History & Physical Report ---
Date of Service June 21, 2021 Assessment & Plan (1) Chest pain: (2) Hypertension: (3) Dyslipidemia: (4) Esophageal reflux: Plan: Pt presents to the ED today with recurrent episodes of chest discomfort and elevated BP - Admit for observation on telemetry - Serial troponin - Repeat EKG in AM - Check ECHO - questionable hx of LVH in chart - Consult cardiology - will make pt NPO after midnight for possible stress test tomorrow - Continue home meds as appropriate - Fasting lipid panel, A1c in AM - Will give single dose of Captopril due to persistently elevated BP in the ED. Holding chlorthalidone since pt reports felt worse on this medication. Will need to determine most appropriate home BP regimen. Pt seen and reviewed with attending physician, Dr. Bains. Plan of care discussed and as outlined above. DVT Prophylaxis: SCDs Code status: Full Code Radha Gooden PA-C History of Present Illness Chief Complaint: Chest discomfort Primary Care Provider: Bernadine Marmolejo DO 51 y/o male with a PMH of HTN, dyslipidemia and GERD presents to the ED for evaluation of chest pain and elevated BP. He first started feeling poorly last week when he developed bilateral ear pain last - started Coricidin thinking it was congestion and earache relief drops. 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 No fevers, chills, sweats, vomiting or diarrhea. Pt reports that his only potential sick contact is his mother who has allergy symptoms and a possible sinus infection. On Saturday noticed bp elevated when he started with a MCLEAN and dizziness. The elevated BP and symptoms continued over the weekend. On Saturday night (2 days ago), pt developed chest discomfort and heaviness - seen in the ED and testing came back negative. Given a second dose of Lisinopril in ED with improvement in BP so pt sent home. Saw PCP yesterday and started on chlorthalidone for BP (apparently previously unable to tolerate HCTZ and amlodipine) - has taken two doses. Feels worse on this med and BP is increased again today. This morning, he developed recurrent chest discomfort similar to Saturday night. Does does not radiate. Pain is intermittent today, lasting minutes at a time. Currently, he is pain-free. No associated nausea, diaphoresis. Has had some trouble catching his breath with exertion this morning but otherwise no significant SOB. No wheezing. Today has felt heart racing but not before today. Feeling more fatigued since Saturday. No sinus congestion, sore throat. Has not been vaccinated for COVID. No recent travel. Remote hx of a cardiac work-up that was negative - done due to passing out spells that resolved after pt quit smoking. Allergies Allergy/AdvReac Type Severity Reaction Status Date / Time ondansetron Allergy Mild RASH Verified 06/21/21 15:17 sulfamethoxazole [Bactrim] Allergy Mild chest hurt Verified 06/21/21 15:17 trimethoprim [Bactrim] Allergy Mild chest hurt Verified 06/21/21 15:17 amoxicillin [From Augmentin] AdvReac Severe Verified 06/21/21 16:09 bloating and abdominal pain clavulanic acid AdvReac Severe Verified 06/21/21 16:09 [From Augmentin] bloating and abdominal pain hydrochlorothiazide AdvReac muscle Verified 06/21/21 16:09 pain, confusion, fatigue Home Medications Medication Instructions Recorded Confirmed Type ipratropium 0.5 mg-albuterol 3 mg 3 ml INHALATION QID PRN 12/02/20 06/21/21 History (2.5 mg base)/3 mL nebulization soln lisinopril 40 mg tablet 40 mg PO DAILY 12/02/20 06/21/21 History omeprazole 40 mg capsule,delayed 40 mg PO QAM 12/02/20 06/21/21 History release ascorbic acid (vitamin C) 500 mg 500 mg PO DAILY 06/21/21 06/21/21 History chewable tablet chlorthalidone 25 mg tablet 25 mg PO QAM 06/21/21 06/21/21 History nortriptyline 10 mg capsule 10 - 20 mg PO QPM PRN 06/21/21 06/21/21 History prochlorperazine maleate 5 mg 5 mg PO Q8 PRN 06/21/21 06/21/21 History tablet simethicone 125 mg capsule 125 mg PO DAILY PRN 06/21/21 06/21/21 History simvastatin 40 mg tablet 40 mg PO DAILY 06/21/21 06/21/21 History triamcinolone acetonide 55 mcg 2 spray INTRANASAL DAILY 06/21/21 06/21/21 History nasal spray aerosol (Nasacort Allergy) Past Med/Surg History Medical History Dyslipidemia Esophageal reflux Hypertension Surgical History H/O colonoscopy History of cholecystectomy Family History Mother Hypertension Other Cancer Denies family history of Heart disease Stroke Social History Smoking Status: Former smoker Tobacco Type: Cigarettes Smoking End Date: 2000 - formerly 1 PPD; Do You Dip or Chew Tobacco: Yes (1 can/day); Hx Alcohol Use: No Hx Substance Use: No Preferred Language: Amharic Communication Ability: Effective Evp Required: No Beliefs That Will Affect Care: None marital status: Current Living Situation: Spouse How many Children do You have: 2 Other Information That Helps Us Care for You: No Feels Safe at Home: Yes Safety Concerns: Feels Safe At This Time Assistive Devices: None Review of Systems Review of Systems: All systems reviewed & are unremarkable except as noted in HPI & below Constitutional: + fatigue; no fever, no chills and no sweats Eyes: no diplopia and no worsening vision Ear, Nose, Mouth, Throat: as per Subjective / HPI Respiratory: no cough, no dyspnea on exertion, no hemoptysis and no wheezing Cardiovascular: as per Subjective / HPI; no syncope and no edema Gastrointestinal: no abdominal pain, no nausea, no vomiting, no diarrhea/loose stools and no blood in stools Genitourinary: no dysuria, no urinary frequency or no hematuria Musculoskeletal: no back pain, no neck pain and no joint pain Integumentary: no rash and no skin ulcer Neurologic: no generalized weakness, no seizure-like activity, no dizziness and no headache(s) Psychiatric: no depression Physical Exam Constitutional: well developed and well nourished; no acute distress Eyes: PERRL, conjunctivae normal, anicteric sclerae ENMT: Ears: + TM abnormality (bilateral serous fluid but no significant erythema or bulging) Neck: suppple, no LAD Respiratory: no respiratory distress Auscultation: lungs clear to auscultation bilaterally; no rales, no rhonchi and no wheezes Cardiovascular: Rate/Rhythm: regular rate and regular rhythm Heart Sounds: no click, no murmur and no cardiac rub Vessels: dorsalis pedis pulses present and radial pulses present Extremities: normal capillary refill; no pedal edema Gastrointestinal (Abdomen): Inspection/Auscultation: normal bowel sounds; abdomen not distended Percussion/Palpation: abdomen soft; abdomen nontender Musculoskeletal: Head/Neck/Chest: normocephalic, head atraumatic and neck supple Skin: no rashes, warm and dry Neurologic: moves all extremities; no focal motor deficits Psychiatric: A+Ox3, euthymic affect Results & Data Results & Data ([facility]) Vital Signs (Past 12 Hours) Vital Signs Temp Pulse Resp BP Pulse Ox 06/21/21 13:16 97 06/21/21 13:08 36.9 C 82 16 166/121 H 96 Laboratory Results Laboratory Results - last 24 hr 06/21/21 06/21/21 06/21/21 13:09 13:09 13:09 WBC 8.94 RBC 5.58 Hgb 17.0 Hct 48.3 MCV 86.6 MCH 30.5 MCHC 35.2 RDW Std Deviation 40.8 RDW Coeff of Paola 12.8 Plt Count 379 MPV 10.2 Immature Gran % (Auto) 0.2 Neut % (Auto) 66.9 Lymph % (Auto) 19.9 Nuckolls % (Auto) 8.9 Eos % (Auto) 3.7 Baso % (Auto) 0.4 Neut # (Auto) 5.97 Lymph # (Auto) 1.78 Nuckolls # (Auto) 0.80 H Eos # (Auto) 0.33 Baso # (Auto) 0.04 Immature Gran # (Auto) 0.02 PT 10.0 INR 1.0 APTT 27.6 PTT Ratio 1.0 Sodium 135 L Potassium 3.4 L Chloride 104 Carbon Dioxide 24 Anion Gap 8.0 BUN 9 Creatinine 1.39 Est Cr Clr Drug Dosing 74.5 Est GFR ( Amer) 67.5 Est GFR (Non-Af Amer) 58.3 BUN/Creatinine Ratio 6.8 L Glucose 153 H Calcium 9.8 Total Bilirubin 0.7 AST 32 ALT 77 Alkaline Phosphatase 76 Troponin I < 0.015 Total Protein 8.3 H Albumin 4.3 Globulin 4.0 Albumin/Globulin Ratio 1.1 COVID-19 Eval Order SARS-CoV-2 (PCR) 06/21/21 06/21/21 14:31 14:31 WBC RBC Hgb Hct MCV MCH MCHC RDW Std Deviation RDW Coeff of Paola Plt Count MPV Immature Gran % (Auto) Neut % (Auto) Lymph % (Auto) Nuckolls % (Auto) Eos % (Auto) Baso % (Auto) Neut # (Auto) Lymph # (Auto) N[place]olls # (Auto) Eos # (Auto) Baso # (Auto) Immature Gran # (Auto) PT INR APTT PTT Ratio Sodium Potassium Chloride Carbon Dioxide Anion Gap BUN Creatinine Est Cr Clr Drug Dosing Est GFR ( Amer) Est GFR (Non-Af Amer) BUN/Creatinine Ratio Glucose Calcium Total Bilirubin AST ALT Alkaline Phosphatase Troponin I Total Protein Albumin Globulin Albumin/Globulin Ratio COVID-19 Eval Order Covid19 at [facility] SARS-CoV-2 (PCR) Pending Diagnostic Findings Chest X-ray 06/21/21 - IMPRESSION: No acute chest disease. CTA Chest 06/21/21 - IMPRESSION: 1. No pulmonary emboli. 2. No pleural effusion or airspace consolidation. 3. Mild bronchial wall thickening may represent bronchitis or reactive airway disease. 4. Hepatic steatosis. Medications Administered Discontinued Medications Ioversol (Optiray 320 125ml) 120 ml IV ONCE ONE Stop: 06/21/21 14:08 Last Admin: 06/21/21 14:07 Dose: 120 ml Documented by: [id number] Code Status & VTE Plan VTE Prophylaxis Plan VTE Prophylaxis will be ordered: Yes Supervising Physician Co-Signing Physician Notes Patient presents with chest discomfort. Denies any typical chest pain. Experiencing shortness of breath but not currently. Was found to be hypertensive on admission. She was given a dose of captopril. We will trend cardiac enzymes. EKG is nonischemic. Cardiology has been consulted. Will obtain stress echo. Likely his symptoms from GERD. I performed a history and physical examination of the patient on 06/22/21, including specifically H&P. I have discussed the patient's management with the advanced practitioner. Please refer to the 06/21/21 note for the documented findings and plan of care.
--- NOTE | 2021-06-21 17:58 | Electrocardiogram Report ---
Test Reason : Blood Pressure : / mmHG Vent. Rate : 065 BPM Atrial Rate : 065 BPM P-R Int : 138 ms QRS Dur : 100 ms QT Int : 370 ms P-R-T Axes : 018 004 014 degrees QTc Int : 384 ms Normal sinus rhythm Nonspecific ST and T wave abnormality Abnormal ECG When compared with ECG of 19-JUN-2021 16:50, QT has shortened Confirmed by Kristian Son ([id number]) on 06/21/2021 5:58:15 PM Referred By: REFERRED SELF Confirmed By:Rowdy Son
--- NOTE | 2021-06-21 18:05 | Emergency Department Note ---
History of Present Illness General Chief Complaint: Cardiac Assessment Stated Complaint: CHEST TIGHTNESS, SOB Time Seen by Provider: 06/21/21 13:32 History of Present Illness Provider Complaint: chest pain Onset (ago): day(s) 6 Duration: intermittent Onset: during rest Pain Location: left chest Pain Radiation: none Severity: moderate Maximum Pain Intensity: 4 Current Pain Intensity: 4 Quality: + aching and + heaviness Relieved By: + nothing Exacerbated By: + nothing Context: no recent illness, no recent surgery, no recent immobilization, no recent travel, no trauma/injury, no new medications or no history of DVT/PE Associated symptoms: + dyspnea; no nausea, no vomiting, no diaphoresis, no syncope, no palpitations, no cough or no leg swelling Treatments prior to arrival: none Patient states he was in the emergency department 2 days ago and followed up with his PCP yesterday. He states his PCP started him on chlorthalidone. Patient states he was post to see cardiology today but he called their office and told them about his symptoms and he was instructed to come to the emergency department. Home Medications Medication Instructions Recorded Confirmed Type ipratropium 0.5 mg-albuterol 3 mg 3 ml INHALATION QID PRN 12/02/20 06/21/21 History (2.5 mg base)/3 mL nebulization soln lisinopril 40 mg tablet 40 mg PO DAILY 12/02/20 06/21/21 History omeprazole 40 mg capsule,delayed 40 mg PO QAM 12/02/20 06/21/21 History release ascorbic acid (vitamin C) 500 mg 500 mg PO DAILY 06/21/21 06/21/21 History chewable tablet chlorthalidone 25 mg tablet 25 mg PO QAM 06/21/21 06/21/21 History nortriptyline 10 mg capsule 10 - 20 mg PO QPM PRN 06/21/21 06/21/21 History prochlorperazine maleate 5 mg 5 mg PO Q8 PRN 06/21/21 06/21/21 History tablet simethicone 125 mg capsule 125 mg PO DAILY PRN 06/21/21 06/21/21 History simvastatin 40 mg tablet 40 mg PO DAILY 06/21/21 06/21/21 History triamcinolone acetonide 55 mcg 2 spray INTRANASAL DAILY 06/21/21 06/21/21 History nasal spray aerosol (Nasacort Allergy) Allergies Allergy/AdvReac Type Severity Reaction Status Date / Time ondansetron Allergy Mild RASH Verified 06/21/21 15:17 sulfamethoxazole [Bactrim] Allergy Mild chest hurt Verified 06/21/21 15:17 trimethoprim [Bactrim] Allergy Mild chest hurt Verified 06/21/21 15:17 amoxicillin [From Augmentin] AdvReac Severe Verified 06/21/21 16:09 bloating and abdominal pain clavulanic acid AdvReac Severe Verified 06/21/21 16:09 [From Augmentin] bloating and abdominal pain hydrochlorothiazide AdvReac muscle Verified 06/21/21 16:09 pain, confusion, fatigue Past Med/Surg History Medical History Dyslipidemia Esophageal reflux Hypertension Surgical History H/O colonoscopy History of cholecystectomy Family History Mother Hypertension Other Cancer Denies family history of Heart disease Stroke Social History Smoking Status: Former smoker Tobacco Type: Cigarettes Smoking End Date: 2000 - PPD; Do You Dip or Chew Tobacco: Yes (1 can/day); Hx Alcohol Use: No Hx Substance Use: No Preferred Language: Latvian Feels Safe at Home: Yes Review of Systems A total of 10 systems reviewed and were otherwise negative Physical Exam Vital Signs Vital Signs - 24 hr 06/21/21 13:08 06/21/21 13:15 06/21/21 13:16 Temperature 36.9 C Temperature Source Oral Pulse Rate 82 Pulse Rate [Apical] Respiratory Rate 16 Respiratory Effort / Characteristics Non-Labored Spontaneous Respiratory Depth Normal Respiratory Pattern Regular Blood Pressure 166/121 H Blood Pressure [Left Arm] Blood Pressure Mean 136 Blood Pressure Mean [Left Arm] Blood Pressure Position Lying Pulse Oximetry 96 97 Oxygen Delivery Method Room Air Room Air Room Air Sepsis Recent Fever Within 48 Hours No Sepsis New/Unexplained Change in Mental Status N/A Sepsis Action Taken by Nursing No Action Required Pulse Oximetry Post Tiitration 96 06/21/21 15:15 06/21/21 17:00 Temperature Temperature Source Pulse Rate Pulse Rate [Apical] 80 80 Respiratory Rate 20 18 Respiratory Effort / Characteristics Respiratory Depth Respiratory Pattern Regular Blood Pressure Blood Pressure [Left Arm] 148/99 H 161/111 H Blood Pressure Mean Blood Pressure Mean [Left Arm] 115 127 Blood Pressure Position Pulse Oximetry 98 98 Oxygen Delivery Method Room Air Room Air Sepsis Recent Fever Within 48 Hours Sepsis New/Unexplained Change in Mental Status Sepsis Action Taken by Nursing Pulse Oximetry Post Tiitration Physical Exam GENERAL: He is oriented to person, place, and time. He appears well-developed and well-nourished. He does not appear distressed. HENT: Exam performed. - Head: Normocephalic and atraumatic. - Right Ear: External ear normal. No mastoid tenderness. - Left Ear: External ear normal. No mastoid tenderness. - Mouth/Throat: The oropharynx is clear and moist. No trismus in the jaw. No dental abscesses or uvula swelling. No oropharyngeal exudate or tonsillar abscesses. EYES: Conjunctivae and EOM are normal. Pupils are equal, round, and reactive to light. Right eye exhibits no discharge. Left eye exhibits no discharge. No scleral icterus. NECK: Normal range of motion. Neck supple. No JVD present. No spinous process tenderness present. No carotid bruit present. No rigidity. No tracheal deviation and normal range of motion present. No Brudzinski's sign and no Kernig's sign noted. CV: Normal rate, regular rhythm, normal heart sounds and intact distal pulses. There is no peripheral edema. Palpable radial pulses bue. PULM/CHEST: Effort normal and breath sounds normal. No respiratory distress. No stridor. He has no wheezes. He has no rales. - Chest Wall: He exhibits no tenderness. ABD: The abdomen is soft. Bowel sounds are normal. He has no distension. No mass is present. There is no tenderness. There is no rebound, no guarding, no Genao's sign and no tenderness at McBurney's point. Rovsig negative. MUSC/SKEL: Normal range of motion. There is no peripheral edema, tenderness or deformity. LYMPH: No cervical adenopathy. NEURO: He is alert and oriented to person, place, and time. He has normal strength. No cranial nerve deficit or sensory deficit. Coordination and gait normal. GCS eye subscore is 4. GCS verbal subscore is 5. GCS motor subscore is 6. Cerebellar tests wnl. SKIN: Skin is warm and dry. He is not diaphoretic. PSYCH: He has a normal mood and affect. Behavior is normal. Judgment and thought content normal. Course Course 1332: The patient was evaluated in room A11. A complete history and physical exam was performed Cardiac monitoring: An order was placed for continuous cardiac monitoring. The monitor shows a rate of 70 with sinus rhythm 1439: Vital signs stable. Labs and imaging within normal limits. Given the patient's third visit to a healthcare provider in last 3 days for chest pain the patient will be brought in for chest pain rule out ACS. Will admit to the [facility] Hospitalist team. Administered Medications Discontinued Medications Ioversol (Optiray 320 125ml) 120 ml IV ONCE ONE Stop: 06/21/21 14:08 Last Admin: 06/21/21 14:07 Dose: 120 ml Documented by: [id number] Medical Decision Making Laboratory Data Result diagrams: 06/21/21 13:09 06/21/21 13:09 Labs: Lab Results 06/21/21 06/21/21 06/21/21 Range/Units 13:09 13:09 13:09 WBC 8.94 (4.8-10.8) K/uL RBC 5.58 (4.7-6.1) M/uL Hgb 17.0 (14.0-18.0) g/dL Hct 48.3 (42-52) % MCV 86.6 (80-100) fL MCH 30.5 (25-34) pg MCHC 35.2 (32-36) g/dL RDW Std Deviation 40.8 (36.4-46.3) fL RDW Coeff of Paola 12.8 (11.5-14.5) % Plt Count 379 (130-400) K/uL MPV 10.2 (7.4-10.4) fL Immature Gran % (Auto) 0.2 % Neut % (Auto) 66.9 % Lymph % (Auto) 19.9 % Toole % (Auto) 8.9 % Eos % (Auto) 3.7 % Baso % (Auto) 0.4 % Neut # (Auto) 5.97 (1.4-6.5) K/uL Lymph # (Auto) 1.78 (1.2-3.4) K/uL Toole # (Auto) 0.80 H (0.11-0.59) K/uL Eos # (Auto) 0.33 (0-0.5) K/uL Baso # (Auto) 0.04 (0-0.2) K/uL Immature Gran # (Auto) 0.02 (0.00-0.02) K/uL PT 10.0 (9.0-12.0) Seconds INR 1.0 (0.9-1.1) APTT 27.6 (21.0-31.0) Seconds PTT Ratio 1.0 Sodium 135 L (136-145) mmol/L Potassium 3.4 L (3.5-5.1) mmol/L Chloride 104 (98-107) mmol/L Carbon Dioxide 24 (21-32) mmol/L Anion Gap 8.0 (3-11) BUN 9 (7-18) mg/dl Creatinine 1.39 (0.6-1.4) mg/dl Est Cr Clr Drug Dosing 74.5 ml/min Est GFR ( Amer) 67.5 ml/min Est GFR (Non-Af Amer) 58.3 ml/min BUN/Creatinine Ratio 6.8 L (10-20) Glucose 153 H (70-99) mg/dl Calcium 9.8 (8.5-10.1) mg/dl Total Bilirubin 0.7 (0.2-1) mg/dl AST 32 (15-37) U/L ALT 77 (12-78) U/L Alkaline Phosphatase 76 (45-117) U/L Troponin I < 0.015 (0-0.045) ng/ml Total Protein 8.3 H (6.4-8.2) gm/dl Albumin 4.3 (3.4-5.0) gm/dl Globulin 4.0 (2.5-4.0) gm/dl Albumin/Globulin Ratio 1.1 (0.9-2) COVID-19 Eval Order SARS-CoV-2 (PCR) (Negative) 06/21/21 06/21/21 Range/Units 14:31 14:31 WBC (4.8-10.8) K/uL RBC (4.7-6.1) M/uL Hgb (14.0-18.0) g/dL Hct (42-52) % MCV (80-100) fL MCH (25-34) pg MCHC (32-36) g/dL RDW Std Deviation (36.4-46.3) fL RDW Coeff of Paola (11.5-14.5) % Plt Count (130-400) K/uL MPV (7.4-10.4) fL Immature Gran % (Auto) % Neut % (Auto) % Lymph % (Auto) % Toole % (Auto) % Eos % (Auto) % Baso % (Auto) % Neut # (Auto) (1.4-6.5) K/uL Lymph # (Auto) (1.2-3.4) K/uL Toole # (Auto) (0.11-0.59) K/uL Eos # (Auto) (0-0.5) K/uL Baso # (Auto) (0-0.2) K/uL Immature Gran # (Auto) (0.00-0.02) K/uL PT (9.0-12.0) Seconds INR (0.9-1.1) APTT (21.0-31.0) Seconds PTT Ratio Sodium (136-145) mmol/L Potassium (3.5-5.1) mmol/L Chloride (98-107) mmol/L Carbon Dioxide (21-32) mmol/L Anion Gap (3-11) BUN (7-18) mg/dl Creatinine (0.6-1.4) mg/dl Est Cr Clr Drug Dosing ml/min Est GFR ( Amer) ml/min Est GFR (Non-Af Amer) ml/min BUN/Creatinine Ratio (10-20) Glucose (70-99) mg/dl Calcium (8.5-10.1) mg/dl Total Bilirubin (0.2-1) mg/dl AST (15-37) U/L ALT (12-78) U/L Alkaline Phosphatase (45-117) U/L Troponin I (0-0.045) ng/ml Total Protein (6.4-8.2) gm/dl Albumin (3.4-5.0) gm/dl Globulin (2.5-4.0) gm/dl Albumin/Globulin Ratio (0.9-2) COVID-19 Eval Order Covid19 at [facility] SARS-CoV-2 (PCR) NEGATIVE (Negative) Imaging Data Chest x-ray: Radiologist's impression: XR chest 1V portable INDICATION: Atypical chest pain. TECHNIQUE: Single frontal radiograph of the chest was obtained. Comparison: Comparison is made to chest one view 06/19/2021 FINDINGS: No lines and tubes are seen. The cardiomediastinal silhouette is normal. Lungs are underinflated but clear. No evidence of pleural effusion or pneumothorax. IMPRESSION: No acute chest disease. ACT 112: Negative or not required by law. Electronically signed by: Eleuterio Santos M.D. 06/21/2021 1:26 PM Dictated: 06/21/21 1325Transcribed: 06/21/[address] scan - chest: Radiologist's impression: CT angio chest PE protocol CT DOSE: 648.66 mGy.cm HISTORY: 51 years-old Male with ro PE. Acute shortness of breath TECHNIQUE: Multiple CTA images of the chest were obtained after the intravenous administration of 120 ml Optiray. Coronal and sagittal MIPS were obtained from the axial data set and were submitted for review. All measurements were obtained according to NASCET criteria. A dose lowering technique was utilized adhering to the principles of ALARA. COMPARISON: Chest radiograph 06/21/2021 FINDINGS: CTA: The heart is normal in size. No pericardial effusion. Mild atherosclerosis of the thoracic aortic arch without aneurysm or dissection. Patency of the imaged great vessels. The pulmonary artery appears normal. The subsegmental branches are not well evaluated secondary to contrast bolus timing. No filling defects identified to suggest thromboembolic disease. CT CHEST: Ill-defined hypodense 10 mm nodule of the posterior left thyroid. No adenopathy. No pneumothorax, pleural effusion or overt pulmonary edema. Mild bronchial wall thickening. No airspace consolidation typical for pneumonia. No suspicious pulmonary nodules or masses. Inferior lung bases are partially imaged. Small subcentimeter focus of linear scarring/atelectasis of the left upper lobe. 3 mm fissural nodule of the left midlung is suggestive of a benign lymph node. The central airways are patent. Hepatic steatosis. No acute process of the imaged upper abdomen. Unremarkable soft tissues. No acute fracture. IMPRESSION: 1. No pulmonary emboli. 2. No pleural effusion or airspace consolidation. 3. Mild bronchial wall thickening may represent bronchitis or reactive airway disease. 4. Hepatic steatosis. ACT 112: Negative or not required by law. The above report was generated using voice recognition software. It may contain grammatical, syntax or spelling errors. Electronically signed by: Sergo Riddle M.D. 06/21/2021 2:17 PM Dictated: 06/21/21 1411Transcribed: 06/21/21 141 [facility] Narrative 1332: The patient was evaluated in room A11. A complete history and physical exam was performed Cardiac monitoring: An order was placed for continuous cardiac monitoring. The monitor shows a rate of 70 with sinus rhythm 1439: Vital signs stable. Labs and imaging within normal limits. Given the patient's third visit to a healthcare provider in last 3 days for chest pain the patient will be brought in for chest pain rule out ACS. Will admit to the [facility] hospitalist team. Impression & Plan Chest pain Discharge Plan Visit Data Chief Complaint: Cardiac Assessment Stated Complaint: CHEST TIGHTNESS, SOB Discharge Problem: Chest pain Patient Disposition: Being Evaluated by Hospitalist Forms Stand Alone Forms: [facility] [employer] Prescriptions Prescriptions: No Action ipratropium-albuterol 0.5 mg-3 mg(2.5 mg base)/3 mL solution for nebulization 3 ml INHALATION QID PRN (Reason: Shortness Of Breath Or Wheezing) RF: 0 omeprazole 40 mg capsule,delayed release(DR/EC) 40 mg PO QAM RF: 0 lisinopril 40 mg tablet 40 mg PO DAILY RF: 0 chlorthalidone 25 mg tablet 25 mg PO QAM RF: 0 triamcinolone acetonide [Nasacort Allergy] 55 mcg Aerosol,[place] 2 spray INTRANASAL DAILY RF: 0 nortriptyline 10 mg capsule 10 - 20 mg PO QPM PRN (Reason: Abdominal Pain) RF: 0 prochlorperazine maleate 5 mg tablet 5 mg PO Q8 PRN (Reason: Nausea) RF: 0 ascorbic acid (vitamin C) 500 mg Tablet,Chewable 500 mg PO DAILY RF: 0 simethicone 125 mg Capsule 125 mg PO DAILY PRN (Reason: Gi Upset) RF: 0 simvastatin 40 mg tablet 40 mg PO DAILY RF: 0 Referrals Referrals: Bernadine Marmolejo DO [Primary Care Provider] -
[2021-06-21] MEDS ORDERED: ACETAMINOPHEN 325 MG TAB PO PRN (21:21)
[2021-06-21] MEDS ORDERED: ALBUT/IPRATROP 3MG/0.5MG NEB 3 ML VIAL INH PRN (21:21)
[2021-06-22 07:55] LABS: Chol HDL Ratio 6; Cholesterol 212 mg/dl (0-200); HDL Cholesterol 37 mg/dl; LDL Cholesterol Calculated 137 mg/dl; Triglycerides 189 mg/dl (0-150); Troponin I < 0.015 ng/ml (0-0.045); VLDL Cholesterol 38 mg/dl
[2021-06-22] MEDS ORDERED: lisinopril 40 MG TAB PO SCH (09:00)
[2021-06-22] MEDS ORDERED: TRIAMCINOLONE ACET NASAL SPRAY 10.8ML BTL SCH (09:00)
[2021-06-22] MEDS ORDERED: SIMVASTATIN 40 MG TAB PO SCH (09:00)
[2021-06-22] MEDS ORDERED: PANTOprazole 40 MG TAB PO SCH (09:00)
--- NOTE | 2021-06-22 09:15 | Cardiology Consultation ---
Date of Consultation June 22, 2021 Assessment & Plan (1) Atypical chest pain: (2) Hypertension: (3) Dyslipidemia: 51-year-old patient admitted with episode of chest burning. Cardiac enzymes undetectable. No ischemic ECG changes. Nonspecific ST-T wave abnormality unchanged compared to prior tracing. Risk factors including hypertension, dyslipidemia, and former tobacco abuse. No dysrhythmias per telemetry monitoring. Recommend resting 2D transthoracic echocardiogram and exercise stress echocardiography for further stratification. Patient agreeable. Further recommendations pending review of testing. Discontinue chlorthalidone due to possible drug reaction. A.m. blood pressures improved. Continue to monitor. History of Present Illness Reason for Consultation: Chest pain Requesting Physician: Dr. Bains Attending Physician: Jesus Bains MD History of Present Illness 51-year-old patient present to the emergency department with chest discomfort. Describes a burning sensation across his chest occurring at rest. Symptoms lasted from 10-20 minutes. The discomfort seem to wax and wane. No associated shortness of breath, palpitations, lightheadedness, or dizziness. Denies exertional chest pain, tightness, or pressure. Denies exertional shortness of breath. No orthopnea, PND, or lower extremity edema. Chest discomfort has resolved overnight. Telemetry reveals sinus rhythm. Currently feeling well from a cardiovascular perspective. Denies personal history of coronary disease, congestive heart failure, or rheumatic fever as a child. Admits to remote history of tobacco use. Denies family history of premature coronary disease. Allergies Allergy/AdvReac Type Severity Reaction Status Date / Time ondansetron Allergy Mild RASH Verified 06/21/21 15:17 sulfamethoxazole [Bactrim] Allergy Mild chest hurt Verified 06/21/21 15:17 trimethoprim [Bactrim] Allergy Mild chest hurt Verified 06/21/21 15:17 amoxicillin [From Augmentin] AdvReac Severe Verified 06/21/21 16:09 bloating and abdominal pain clavulanic acid AdvReac Severe Verified 06/21/21 16:09 [From Augmentin] bloating and abdominal pain hydrochlorothiazide AdvReac muscle Verified 06/21/21 16:09 pain, confusion, fatigue Home Medications Medication Instructions Recorded Confirmed Type ipratropium 0.5 mg-albuterol 3 mg 3 ml INHALATION QID PRN 12/02/20 06/21/21 History (2.5 mg base)/3 mL nebulization soln lisinopril 40 mg tablet 40 mg PO DAILY 12/02/20 06/21/21 History omeprazole 40 mg capsule,delayed 40 mg PO QAM 12/02/20 06/21/21 History release ascorbic acid (vitamin C) 500 mg 500 mg PO DAILY 06/21/21 06/21/21 History chewable tablet chlorthalidone 25 mg tablet 25 mg PO QAM 06/21/21 06/21/21 History nortriptyline 10 mg capsule 10 - 20 mg PO QPM PRN 06/21/21 06/21/21 History prochlorperazine maleate 5 mg 5 mg PO Q8 PRN 06/21/21 06/21/21 History tablet simethicone 125 mg capsule 125 mg PO DAILY PRN 06/21/21 06/21/21 History simvastatin 40 mg tablet 40 mg PO DAILY 06/21/21 06/21/21 History triamcinolone acetonide 55 mcg 2 spray INTRANASAL DAILY 06/21/21 06/21/21 History nasal spray aerosol (Nasacort Allergy) Patient History Medical History Dyslipidemia Esophageal reflux Hypertension Surgical History H/O colonoscopy History of cholecystectomy Family History Mother Hypertension Other Cancer Denies family history of Heart disease Stroke Social History Smoking Status: Former smoker Tobacco Type: Cigarettes Smoking End Date: 2000 - formerly 1 PPD; Do You Dip or Chew Tobacco: Yes (1 can/day); Hx Alcohol Use: No Hx Substance Use: No Preferred Language: Beninese Communication Ability: Effective Filament Tester Required: No Beliefs That Will Affect Care: None Current Living Situation: Spouse Other Information That Helps Us Care for You: No Feels Safe at Home: Yes Safety Concerns: Feels Safe At This Time Assistive Devices: None Review of Systems Review of Systems: All systems reviewed & are unremarkable except as noted in Subjective Physical Exam Constitutional: well developed and well nourished; no acute distress Respiratory: normal respiratory effort; no respiratory distress, no labored breathing and no retractions Auscultation: breath sounds present, no diminished lung sounds, no crackles, no rales, no rhonchi and no wheezes Cardiovascular: Rate/Rhythm: regular rate and regular rhythm Heart Sounds: normal S1 and normal S2; no murmur Vessels: radial pulses present; no JVD and no carotid bruit Extremities: no edema Gastrointestinal (Abdomen): Inspection/Auscultation: abdomen normal to inspection and normal bowel sounds; abdomen not distended Percussion/Palpation: abdomen soft; abdomen nontender, no guarding and abdomen not rigid Neurologic: CN's II-XI intact bilaterally and moves all extremities; no focal motor deficits Motor/Sensory: no tremor Psychiatric: A+Ox3, euthymic affect Results & Data ([facility]) Vital Signs (Past 12 Hours) Vital Signs Temp Pulse Pulse Resp BP Pulse Ox 06/22/21 08:50 36.6 C 88 18 134/84 95 06/22/21 03:31 36.7 C 88 20 135/85 95 06/22/21 00:25 36.5 C 75 18 134/95 97 06/21/21 22:58 93 H 06/21/21 21:54 81 06/21/21 21:21 36.9 C 92 H 18 168/107 H 95 (1) Hypertension Hypertension type: unspecified Qualified Code(s): I10 - Essential (primary) hypertension
[2021-06-22 09:40] LABS: Estimated Average Glucose 120 mg/dl; Hemoglobin A1C 5.8 % (4.5-5.6)
--- NOTE | 2021-06-22 14:15 | Discharge Summary ---
Date of Service June 22, 2021 Admission HPI Per Admitting Provider 51 y/o male with a PMH of HTN, dyslipidemia and GERD presents to the ED for evaluation of chest pain and elevated BP. He first started feeling poorly last week when he developed bilateral ear pain last - started Coricidin thinking it was congestion and earache relief drops. 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 No fevers, chills, sweats, vomiting or diarrhea. Pt reports that his only potential sick contact is his mother who has allergy symptoms and a possible sinus infection. On Saturday noticed bp elevated when he started with a MCLEAN and dizziness. The elevated BP and symptoms continued over the weekend. On Saturday night (2 days ago), pt developed chest discomfort and heaviness - seen in the ED and testing came back negative. Given a second dose of Lisinopril in ED with improvement in BP so pt sent home. Saw PCP yesterday and started on chlorthalidone for BP (apparently previously unable to tolerate HCTZ and amlodipine) - has taken two doses. Feels worse on this med and BP is increased again today. This morning, he developed recurrent chest discomfort similar to Saturday night. Does does not radiate. Pain is intermittent today, lasting minutes at a time. Currently, he is pain-free. No associated nausea, diaphoresis. Has had some trouble catching his breath with exertion this morning but otherwise no significant SOB. No wheezing. Today has felt heart racing but not before today. Feeling more fatigued since Saturday. No sinus congestion, sore throat. Has not been vaccinated for COVID. No recent travel. Remote hx of a cardiac work-up that was negative - done due to passing out spells that resolved after pt quit smoking. Admission Exam Per Admitting Provider Constitutional: well developed and well nourished; no acute distress Eyes: PERRL, conjunctivae normal, anicteric sclerae ENMT: Ears: + TM abnormality (bilateral serous fluid but no significant erythema or bulging) Neck: suppple, no LAD Respiratory: no respiratory distress Auscultation: lungs clear to auscultation bilaterally; no rales, no rhonchi and no wheezes Cardiovascular: Rate/Rhythm: regular rate and regular rhythm Heart Sounds: no click, no murmur and no cardiac rub Vessels: dorsalis pedis pulses present and radial pulses present Extremities: normal capillary refill; no pedal edema Gastrointestinal (Abdomen): Inspection/Auscultation: normal bowel sounds; abdomen not distended Percussion/Palpation: abdomen soft; abdomen nontender Musculoskeletal: Head/Neck/Chest: normocephalic, head atraumatic and neck supple Skin: no rashes, warm and dry Neurologic: moves all extremities; no focal motor deficits Psychiatric: A+Ox3, euthymic affect Principal Diagnosis chest pain Discharge Exam General: A&Ox3 HENT: NCAT, MMM, EOMI Eyes: PERRLA Neck: Supple, normal range of motion CVS: normal rate and rhythm Resp: b/l good breath suonds Abdomen: Soft, ND/NT, +BS Extremities: No c/c/e Neuro: face symmetric, strength grossly equal, no focal deficit Skin: warm and dry, no rashes/lesions/errythema MSK: normal ROM, no joint swelling/erythema Discharge Data Allergies Allergy/AdvReac Type Severity Reaction Status Date / Time ondansetron Allergy Mild RASH Verified 06/21/21 15:17 sulfamethoxazole [Bactrim] Allergy Mild chest hurt Verified 06/21/21 15:17 trimethoprim [Bactrim] Allergy Mild chest hurt Verified 06/21/21 15:17 amoxicillin [From Augmentin] AdvReac Severe Verified 06/21/21 16:09 bloating and abdominal pain clavulanic acid AdvReac Severe Verified 06/21/21 16:09 [From Augmentin] bloating and abdominal pain hydrochlorothiazide AdvReac muscle Verified 06/21/21 16:09 pain, confusion, fatigue Consultations 06/21/21 14:39 ED Decision to Admit Stat 06/21/21 16:16 Consult Cardiology Routine Ordered Studies 06/21/21 13:32 CT angio chest PE protocol Stat Hospital Course (1) Chest pain: (2) Hypertension: (3) Dyslipidemia: (4) Esophageal reflux: Pt presents to the ED today with recurrent episodes of chest discomfort and elevated BP. Patient presented with chest discomfort. He denied any significant pain but describes it as a burning kind of sensation. Troponins were negative. EKG was nonischemic. Cardiac stress test was negative. Allergy evaluated the patient. His hypertension improved. On the day of discharge patient is doing okay. Hemodynamically he was doing fine. Chest discomfort resolved. His symptoms are likely secondary to GERD patient was referred to gastroenterology as an outpatient. Patient was discharged in stable condition. Chlorthalidone was stopped at discharge due to possible reaction. Total Time Total Time Spent Total Time Spent (In Minutes): 25 Discharge Plan Discharge Items Patient Disposition: Home - Self-Care Reason For Visit: CHEST PAIN Discharge Diagnosis: Chest pain Activity: Resume your previous activity Non-emergency contact: Primary Care Provider Call non-emergency contact if: your symptoms worsen Follow-up/Referrals: Bernadine Marmolejo, [Primary Care Provider] - (Date & Time 06/26/2021 9:00 AM Provider Ric Mercedes MD Department [facility] ) Diet: Heart Healthy Addtl Attending Provider Instructions: Your chest burning symptoms are likely secondary to GERD. Gastroenterology referral has been sent. Pending Studies at Discharge: No Stand-Alone Forms: mBlox, Smoking Cessation Medications and DC Order Prescriptions: Continued ipratropium-albuterol 0.5 mg-3 mg(2.5 mg base)/3 mL solution for nebulization 3 ml INHALATION QID PRN (Reason: Shortness Of Breath Or Wheezing) RF: 0 omeprazole 40 mg capsule,delayed release(DR/EC) 40 mg PO QAM RF: 0 lisinopril 40 mg tablet 40 mg PO DAILY RF: 0 triamcinolone acetonide [Nasacort Allergy] 55 mcg Aerosol,[place] 2 spray INTRANASAL DAILY RF: 0 nortriptyline 10 mg capsule 10 - 20 mg PO QPM PRN (Reason: Abdominal Pain) RF: 0 prochlorperazine maleate 5 mg tablet 5 mg PO Q8 PRN (Reason: Nausea) RF: 0 ascorbic acid (vitamin C) 500 mg Tablet,Chewable 500 mg PO DAILY RF: 0 simethicone 125 mg Capsule 125 mg PO DAILY PRN (Reason: Gi Upset) RF: 0 simvastatin 40 mg tablet 40 mg PO DAILY RF: 0 Discontinued chlorthalidone 25 mg tablet 25 mg PO QAM RF: 0 Discharge Orders: Discharge Order (Routine); Ordered 06/22/21 Ordered By: Jesus Bains Admission Data Admit Date/Time: 06/21/21 15:12 Attending Provider: Jesus Bains Admit Provider: Jesus Bains Primary Care Provider: Bernadine Marmolejo Other Providers: Winston Sawant ; Jesus Bains
--- NOTE | 2021-06-23 16:48 | Electrocardiogram Report ---
Test Reason : Blood Pressure : / mmHG Vent. Rate : 070 BPM Atrial Rate : 070 BPM P-R Int : 150 ms QRS Dur : 092 ms QT Int : 394 ms P-R-T Axes : 054 006 012 degrees QTc Int : 425 ms Normal sinus rhythm Normal ECG When compared with ECG of 21-JUN-2021 13:49, (unconfirmed) No significant change was found Confirmed by Kristian Son ([id number]) on 06/23/2021 4:47:59 PM Referred By: REFERRED SELF Confirmed By:Rowdy Son
--- NOTE | 2021-06-23 17:28 | Electrocardiogram Report ---
Test Reason : Blood Pressure : / mmHG Vent. Rate : 087 BPM Atrial Rate : 087 BPM P-R Int : 144 ms QRS Dur : 092 ms QT Int : 360 ms P-R-T Axes : 072 017 032 degrees QTc Int : 433 ms Normal sinus rhythm Normal ECG When compared with ECG of 21-JUN-2021 17:42, (unconfirmed) No significant change was found Confirmed by Kristian Son ([id number]) on 06/23/2021 5:28:13 PM Referred By: REFERRED SELF Confirmed By:Rowdy Son
--- NOTE | 2021-06-24 07:10 | Electrocardiogram Report ---
Test Reason : Blood Pressure : / mmHG Vent. Rate : 076 BPM Atrial Rate : 076 BPM P-R Int : 146 ms QRS Dur : 094 ms QT Int : 374 ms P-R-T Axes : 059 005 008 degrees QTc Int : 420 ms Normal sinus rhythm Normal ECG When compared with ECG of 21-JUN-2021 13:08, No significant change was found Confirmed by Kristian Son ([id number]) on 06/24/2021 7:09:38 AM Referred By: REFERRED SELF Confirmed By:Rowdy Son
== END 2021-06-22 15:01 | disposition home or self-care (01) ==
LOC: ED 13:00 → 2S 13:00

== ENCOUNTER 2021-09-11 23:34 | Inpatient (IN) ==
[2021-09-12] MEDS ORDERED: dexAMETHasone**PF** 10 MG/ML VIAL IV ONE (01:18)
[2021-09-12] MEDS ORDERED: SODIUM CHLORIDE 0.9% 1000ML 1,000 ML IV ONE (01:18)
[2021-09-12] MEDS ORDERED: diphenhydrAMINE 50 MG/ML VIAL IV STA (01:18)
[2021-09-12] MEDS ORDERED: HYDROcodone/HOMATROPINE SYRUP 5MG/1.5MG 5ML UDP PO STA (01:18)
--- NOTE | 2021-09-12 01:19 | Emergency Department Note ---
Impression & Plan COVID-19, Pharyngeal edema, Swollen uvula ED Provider Note Name: MYLES FELDMAN Age: 51 Sex: M Arrives Via: Walk-In Informant: Patient ED Provider: William Vitale MD Chief Complaint: Sore throat Impression: As per impressions above Medical Decision Makin-year-old gentleman with known Covid for the last 7 to 8 days. Patient arrives due to worsening sore throat the last few days and severe worsening this afternoon. He notes he feels like his entire throat is closing up. On examination he has significant pharyngeal and uvular edema but he is breathing comfortably and is having no trouble swallowing. He was given some Hycodan for discomfort which he was able to swallow without much difficulty. Given his edema on exam and is complaining of the entire throat being sore is felt that CT would be indicated. Labs were obtained which are consistent with inflammatory process. Awaiting CT Decadron, Benadryl and fluids were given. CT reveals significant pharyngeal edema down to the epiglottis with even some concern for epiglottitis versus pharyngitis versus angioedema. Without any lip or tongue swelling angioedema seems less likely. With findings it seems more likely that this is a pharyngitis and will treat empirically as bacterial with Rocephin, then vancomycin (after discussing with pharmacist). Given the airway edema I do feel that monitoring will be necessary. Patient fortunately is having no difficulty breathing or swallowing throughout remarkably. I did discuss the case with both anesthesia and critical care and the plan will be to monitor in the ICU for worsening or other concerns. Hospitalist was consulted for further management. Patient was kept abreast of these findings. I will note that ENT was not consulted as they are not on-call at this facility today. Prior Medical Record and Triage/Nursing Notes reviewed by Me Additional history obtained from chart Differentials:Viral syndrome, tonsillitis, streptococcal pharyngitis, mononucleosis, peritonsillar abscess, retropharyngeal abscess, otitis, pneumonia, influenza, as well as other pathologies. Vital Signs: reviewed and remarkable for hypertension Interventions: Saline lock, normal saline bolus, Decadron 10 mg IV, Benadryl 50 mg IV, Rocephin 2 g IV, vancomycin 2 g IV, Hycodan p.o. Labs:Reviewed and remarkable for elevated CRP Imaging:Stat read as below with narrowing of airway and pharyngeal edema Consults:Anesthesia, critical care medicine, [facility] hospitalist Plan: Disposition:Hospitalization. Condition: Good History of Present Illness:51-year-old male arrives for evaluation of sore throat. Patient with Covid diagnosis about 10 days ago. The last 3 to 4 days has been having worsening sore throat. He states that it is hard to swallow due to the pain as well as periods of nausea and vomiting. Patient states he took a small pill that his gave him earlier without improvement. He is worried that he is having an allergic reaction to something. He denies any lip or tongue swelling. He has severe pain in his throat and it hurts to cough. He denies any shortness of breath, chest pain, fevers, chills, syncope, abdominal pain, back pain, urinary/bowel symptoms, leg swelling, rashes nor other symptom s. He has had no trauma to, injuries. He has not been on any recent antibiotics. He has no history of tonsillar nor throat issues previously. Patient notes his family had Covid. He denies any known strep contacts. ROS: See above HPI for pertinent positives & negatives. A total of 10 systems reviewed and were otherwise negative. Past Medical History:Hypertension, GERD, hyper lipidemia Past Surgical History:See Below Family History:See Below Social History:See Below Home Medications:See Below Allergies:See Below Vitals:Blood Pressure: 158/115, Pulse 98, RR 18, T 36.5C, O2 97% on RA Physical Exam: GENERAL: Patient is dehydrated and tired appearing and in moderate distress. Periodically dry heaving EYES: No scleral icterus, unremarkable pupils. ENT: Mucous membranes moist, no nasal congestion. Erythematous posterior pharynx with large tonsils, large edematous uvula NECK: No masses appreciated, nomeningismus, trachea is midline. RESPIRATORY: No dyspnea. Clear to auscultation and equal bilaterally. No wheeze, no rhonchi. CARDIOVASCULAR: Regular rate and rhythm.No murmurs, rubs, gallops appreciated. GASTROINTESTINAL: Abdomen soft, non-tender, no peritonitis.Bowel sounds positive.No masses appreciated. BACK: No midline tenderness, no CVA tenderness EXTREMITIES: Normal motion all extremities, no cyanosis, no edema. NEUROLOGIC: Alert and oriented, no acute motor or sensory deficits, no focal weakness, cranial nerves grossly intact. SKIN: No rash, no jaundice, no diaphoresis. PSYCH: Appropriate GCS: 15 ED Course: Times/Reassessments: Patient stable throughout. I will note that he there was a wait prior to him being seen due to the extreme volumes of the Covid 19 pandemic and extreme stressors placed on the medical system general. Once evaluated labs, medications and imaging were immediately ordered. There was some delay in getting the read on the CT and throughout this I continue to monitor the patient during which she had no respiratory difficulty and was stable. William Vitale MD Past Med/Surg History Medical History Dyslipidemia Esophageal reflux Hypertension Surgical History H/O colonoscopy History of cholecystectomy Family History Mother Hypertension Other Cancer Denies family history of Heart disease Stroke Social History Smoking Status: Former smoker Tobacco Type: Smokeless Tobacco (Dip or Chew) Do You Dip or Chew Tobacco: Yes; Tobacco Cessation Education Requested by Patient: No Hx Alcohol Use: No Hx Substance Use: No Preferred Language: [place] Communication Ability: Effective Immigration Paralegal Required: No Beliefs That Will Affect Care: None marital status: Current Living Situation: Family How many Children do You have: 2 Other Information That Helps Us Care for You: No Feels Safe at Home: Yes Safety Concerns: Feels Safe At This Time Assistive Devices: Glasses Assistive Devices Comment: Reading glasses Allergies Allergies Allergy/AdvReac Type Severity Reaction Status Date / Time ondansetron Allergy Mild RASH Verified 09/12/21 02:27 sulfamethoxazole [Bactrim] Allergy Mild chest hurt Verified 09/12/21 02:27 trimethoprim [Bactrim] Allergy Mild chest hurt Verified 09/12/21 02:27 amoxicillin [From Augmentin] AdvReac Severe Severe Verified 09/12/21 02:27 bloating and abdominal pain clavulanic acid AdvReac Severe Severe Verified 09/12/21 02:27 [From Augmentin] bloating and abdominal pain hydrochlorothiazide AdvReac Intermediate muscle Verified 09/12/21 02:27 pain, confusion, fatigue Home Meds Home Medications Medication Instructions Recorded Confirmed ipratropium 0.5 mg-albuterol 3 mg 3 ml INHALATION QID PRN 12/02/20 09/12/21 (2.5 mg base)/3 mL nebulization soln lisinopril 40 mg tablet 40 mg PO DAILY 12/02/20 09/12/21 omeprazole 40 mg capsule,delayed 40 mg PO QAM 12/02/20 09/12/21 release ascorbic acid (vitamin C) 500 mg 500 mg PO DAILY 06/21/21 09/12/21 chewable tablet nortriptyline 10 mg capsule 10 - 20 mg PO QPM PRN 06/21/21 09/12/21 prochlorperazine maleate 5 mg 5 mg PO Q8 PRN 06/21/21 09/12/21 tablet simethicone 125 mg capsule 125 mg PO DAILY PRN 06/21/21 09/12/21 simvastatin 40 mg tablet 40 mg PO DAILY 06/21/21 09/12/21 triamcinolone acetonide 55 mcg 2 spray INTRANASAL DAILY 06/21/21 09/12/21 nasal spray aerosol (Nasacort Allergy) Results & Data (ED) Vital Signs Vital Signs - 24 hr 09/12/21 02:04 09/12/21 04:01 09/12/21 04:30 Pulse Rate [Apical] 83 75 Respiratory Rate 20 Respiratory Effort / Characteristics Blood Pressure [Right Arm] 156/108 H 142/101 H 138/100 Blood Pressure Mean [Right Arm] 124 114 112 Pulse Oximetry 97 95 Oxygen Delivery Method Room Air Room Air 09/12/21 05:30 09/12/21 07:00 09/12/21 07:02 Pulse Rate [Apical] 73 77 Respiratory Rate 20 Respiratory Effort / Characteristics Non-Labored Spontaneous Non-Labored Spontaneous Blood Pressure [Right Arm] 144/105 H 135/100 Blood Pressure Mean [Right Arm] 118 111 Pulse Oximetry 95 95 Oxygen Delivery Method Room Air Room Air Room Air Laboratory Data Result diagrams: 09/12/21 01:33 09/12/21 01:33 Lab Results 09/12/21 09/12/21 09/12/21 Range/Units 01:33 01:33 01:37 WBC 7.80 (4.8-10.8) K/uL RBC 5.02 (4.7-6.1) M/uL Hgb 14.9 (14.0-18.0) g/dL Hct 43.8 (42-52) % MCV 87.3 (80-100) fL MCH 29.7 (25-34) pg MCHC 34.0 (32-36) g/dL RDW Std Deviation 44.5 (36.4-46.3) fL RDW Coeff of [place] 13.9 (11.5-14.5) % Plt Count 325 (130-400) K/uL MPV 9.9 (7.4-10.4) fL Immature Gran % (Auto) 0.3 % Neut % (Auto) 67.5 % Lymph % (Auto) 22.3 % [place] % (Auto) 7.3 % Eos % (Auto) 2.3 % Baso % (Auto) 0.3 % Neut # (Auto) 5.27 (1.4-6.5) K/uL Lymph # (Auto) 1.74 (1.2-3.4) K/uL [place] # (Auto) 0.57 (0.11-0.59) K/uL Eos # (Auto) 0.18 (0-0.5) K/uL Baso # (Auto) 0.02 (0-0.2) K/uL Immature Gran # (Auto) 0.02 (0.00-0.02) K/uL Sodium 142 (136-145) mmol/L Potassium 3.5 (3.5-5.1) mmol/L Chloride 108 H (98-107) mmol/L Carbon Dioxide 27 (21-32) mmol/L Anion Gap 7.0 (3-11) BUN 9 (7-18) mg/dl Creatinine 1.13 (0.6-1.4) mg/dl Est Cr Clr Drug Dosing Not Reportable Est GFR ( Amer) 86.7 ml/min Est GFR (Non-Af Amer) 74.8 ml/min BUN/Creatinine Ratio 8.1 L (10-20) Glucose 109 H (70-99) mg/dl Lactate (0.4-2.0) mmol/L Calcium 9.2 (8.5-10.1) mg/dl C-Reactive Protein 1.14 H (0-0.29) mg/dl SARS-CoV-2 (PCR) (Negative) Influenza Type A (PCR) (Neg) Influenza Type B (PCR) (Neg) RSV (RT-PCR) (Neg) Group A Strep (PCR) NOT DETECTED (NotDetected) 09/12/21 09/12/21 Range/Units 05:05 05:10 WBC (4.8-10.8) K/uL RBC (4.7-6.1) M/uL Hgb (14.0-18.0) g/dL Hct (42-52) % MCV (80-100) fL MCH (25-34) pg MCHC (32-36) g/dL RDW Std Deviation (36.4-46.3) fL RDW Coeff of [place] (11.5-14.5) % Plt Count (130-400) K/uL MPV (7.4-10.4) fL Immature Gran % (Auto) % Neut % (Auto) % Lymph % (Auto) % [place] % (Auto) % Eos % (Auto) % Baso % (Auto) % Neut # (Auto) (1.4-6.5) K/uL Lymph # (Auto) (1.2-3.4) K/uL [place] # (Auto) (0.11-0.59) K/uL Eos # (Auto) (0-0.5) K/uL Baso # (Auto) (0-0.2) K/uL Immature Gran # (Auto) (0.00-0.02) K/uL Sodium (136-145) mmol/L Potassium (3.5-5.1) mmol/L Chloride (98-107) mmol/L Carbon Dioxide (21-32) mmol/L Anion Gap (3-11) BUN (7-18) mg/dl Creatinine (0.6-1.4) mg/dl Est Cr Clr Drug Dosing Est GFR ( Amer) ml/min Est GFR (Non-Af Amer) ml/min BUN/Creatinine Ratio (10-20) Glucose (70-99) mg/dl Lactate 1.1 (0.4-2.0) mmol/L Calcium (8.5-10.1) mg/dl C-Reactive Protein (0-0.29) mg/dl SARS-CoV-2 (PCR) POSITIVE A* (Negative) Influenza Type A (PCR) Negative (Neg) Influenza Type B (PCR) Negative (Neg) RSV (RT-PCR) Negative (Neg) Group A Strep (PCR) (NotDetected) Administered Medications Ascorbic Acid (Ascorbic Acid 500 Mg Tab) [address] [facility] Stop: 10/12/21 08:59 Last Admin: 09/12/21 10:23 Dose: Not Given Documented by: [id number] Enoxaparin Sodium (Enoxaparin Inj 40 Mg/0.4 Ml Syr) [address] [facility] Stop: 10/12/21 08:59 Last Admin: 09/12/21 10:03 Dose: 40 mg Documented by: [id number] Hydralazine HCl (Hydralazine Hcl 20 Mg/Ml Vial) 7.5 mg IV Q6H PRN PRN Reason: SBP > 170 Stop: 10/12/21 08:16 Last Admin: 09/12/21 21:01 Dose: 7.5 mg Documented by: [id number] Famotidine 20 mg/ Syringe 5 mls @ 2.5 mls/min IV Q12 [facility] Stop: 10/12/21 08:59 Last Admin: 09/12/21 21:01 Dose: 2.5 mls/min Documented by: [id number] Admin: 09/12/21 10:03 Dose: 2.5 mls/min Documented by: [id number] Levofloxacin/Dextrose (Levaquin/D5w) 500 mg in 100 mls @ 100 mls/hr IV Q24H [facility] Stop: 09/22/21 09:59 Last Infusion: 09/12/21 11:18 Dose: 0 mls/hr Documented by: [id number] Admin: 09/12/21 10:16 Dose: 100 mls/hr Documented by: [id number] Vancomycin HCl 1,250 mg/ (Sodium Chloride) 275 mls @ 200 mls/hr IV Q12H [facility] Stop: 09/22/21 05:59 Last Infusion: 09/12/21 18:15 Dose: 0 mls/hr Documented by: [id number] Admin: 09/12/21 16:35 Dose: 200 mls/hr Documented by: [id number] Phenol (Chloraseptic 1.4% Soln 180 Ml Btl) 2 sprays MT Q4H PRN PRN Reason: Sore Throat Stop: 10/12/21 13:32 Last Admin: 09/12/21 14:47 Dose: 2 sprays Documented by: [id number] Simvastatin (Simvastatin 40 Mg Tab) 40 mg PO DAILY [facility] Stop: 10/12/21 08:59 Last Admin: 09/12/21 10:23 Dose: Not Given Documented by: [id number] Discontinued Medications Dexamethasone Sodium Phosphate (DexamethasonePf 10 Mg/Ml Vial) 10 mg IV NOW ONE Stop: 09/12/21 01:19 Last Admin: 09/12/21 01:31 Dose: 10 mg Documented by: [id number] Diphenhydramine HCl (Diphenhydramine 50 Mg/Ml Vial) 50 mg IV NOW STA Stop: 09/12/21 01:19 Last Admin: 09/12/21 01:31 Dose: 50 mg Documented by: [id number] Hydrocodone Bit/Homatropine Methylb (Hydrocodone/Homatropine Syrup 5mg/1.5mg 5ml Udp) 5 ml PO NOW STA Stop: 09/12/21 01:19 Last Admin: 09/12/21 01:31 Dose: 5 ml Documented by: [id number] Sodium Chloride (Nss 1000ml) 1,000 mls @ 999 mls/hr IV .Q1H1M ONE Stop: 09/12/21 02:18 Last Infusion: 09/12/21 02:43 Dose: 0 mls/hr Documented by: [id number] Admin: 09/12/21 01:31 Dose: 999 mls/hr Documented by: [id number] Ceftriaxone Sodium (Rocephin) 2,000 mg in 70 mls @ 140 mls/hr IV NOW STA Stop: 09/12/21 05:33 Last Infusion: 09/12/21 06:12 Dose: 0 mls/hr Documented by: [id number] Admin: 09/12/21 05:35 Dose: 140 mls/hr Documented by: [id number] Vancomycin HCl 2,000 mg/ (Sodium Chloride) 540 mls @ 200 mls/hr IV NOW ONE Stop: 09/12/21 08:52 Last Infusion: 09/12/21 09:53 Dose: 0 mls/hr Documented by: [id number] Admin: 09/12/21 06:52 Dose: 200 mls/hr Documented by: [id number] Sodium Chloride (Nss 1000ml) 1,000 mls @ 100 mls/hr IV .Q10H [facility]IM Stop: 09/12/21 18:16 Last Infusion: 09/12/21 18:28 Dose: 0 mls/hr Documented by: [id number] Admin: 09/12/21 10:04 Dose: 100 mls/hr Documented by: [id number] Ioversol (Optiray 320 100ml) 95 ml IV ONCE ONE Stop: 09/12/21 02:41 Last Admin: 09/12/21 02:41 Dose: 1 ml Documented by: [id number] Discharge Plan Visit Data Chief Complaint: Throat Pain Stated Complaint: COVID +,FEELS LIKE THROAT SWELLING ED Provider: William Vitale Discharge Problem: COVID-19, Pharyngeal edema, Swollen uvula Patient Disposition: Admitted As Inpatient Discharge Instructions Interventions: ED Discharge Assessment Last Done: 09/12/21 07:52
[2021-09-12 01:41] LABS: Basophils # (auto) 0.02 K/uL (0-0.2); Basophils % (auto) 0.3 %; Eosinophils # (auto) 0.18 K/uL (0-0.5); Eosinophils % (auto) 2.3 %; Hematocrit (blood only) 43.8 % (42-52); Hemoglobin 14.9 g/dL (14.0-18.0); Immature Granulocytes # (auto) 0.02 K/uL (0.00-0.02); Immature Granulocytes % (auto) 0.3 %; Lymphocytes # (auto) 1.74 K/uL (1.2-3.4); Lymphocytes % (auto) 22.3 %; Mean Corpuscular Hemoglobin 29.7 pg (25-34); Mean Corpuscular Volume 87.3 fL (80-100); Mean Platelet Volume 9.9 fL (7.4-10.4); Monocytes # (auto) 0.57 K/uL (0.11-0.59); Monocytes % (auto) 7.3 %; Neutrophils # (auto) 5.27 K/uL (1.4-6.5); Neutrophils % (auto) 67.5 %; Platelet Count 325 K/uL (130-400); RDW Coefficient of Variation 13.9 % (11.5-14.5); RDW Standard Deviation 44.5 fL (36.4-46.3); Red Blood Count 5.02 M/uL (4.7-6.1)
[2021-09-12 02:13] LABS: BUN Creatinine Ratio 8.1 (10-20); Blood Urea Nitrogen 9 mg/dl (7-18); C Reactive Protein 1.14 mg/dl (0-0.29); Calcium 9.2 mg/dl (8.5-10.1); Carbon Dioxide 27 mmol/L (21-32); Chloride 108 mmol/L (98-107); Est GFR (African American) 86.7 ml/min; Est GFR (Non-African American) 74.8 ml/min; Glucose 109 mg/dl (70-99); Potassium 3.5 mmol/L (3.5-5.1); Sodium 142 mmol/L (136-145)
[2021-09-12] MEDS ORDERED: OPTIRAY 320 100ml IV ONE (02:40)
[2021-09-12] MEDS ORDERED: cefTRIAXone SODIUM 2,000 MG/70 ML BAG IV STA (05:04)
[2021-09-12 06:04] LABS: Influenza A virus by PCR Negative (Neg); Influenza B virus by PCR Negative (Neg); RSV by PCR Negative (Neg)
[2021-09-12] MEDS ORDERED: VANCOMYCIN HCL 2,000 MG in SODIUM CHLORIDE 0.9% 500 ML IV ONE (06:11)
[2021-09-12] MEDS ORDERED: VANCOMYCIN CONSULT ACTIVE PRN (06:11)
[2021-09-12 06:21] LABS: SARS CoV2 RNA(COVID-19) InHosp POSITIVE (Negative)
--- NOTE | 2021-09-12 07:28 | CT Scan Report ---
CT soft tissue neck w con HISTORY: sore throat, difficulty swallowing TECHNIQUE: Multiaxial CT images of the neck were performed on asymmetry intravenous contrast and refo rmatted in the sagittal and coronal plane. COMPARISON STUDY: None. FINDINGS: The visualized brain parenchyma and orbits are unremarkable. Pterygopalatine fossa and para pharyngeal fat spaces are well-maintained. There is 9 mm left thyroid nodule. This does not meet CT c riteria for follow-up. No pneumothorax. No fractures within the visualized osseous structures. Partia l opacification of the ethmoid air cells and moderate mucosal thickening within the maxillary sinuses . The mastoid air cells are clear. Small periapical lucency at ADA 19. The major cervical vessels enh ance normally. Mild calcified plaque within the right carotid bifurcation. The palatine tonsils, uvul a, and right aryepiglottic folds are thickened and edematous. There is also trace prevertebral edema noted. This results in moderate narrowing of the airway. Epiglottis is normal in thickness. Low-densi ty thickening of the right hypopharynx best seen on image 248 protrudes into the airway lumen measure s approximately 1 cm. This could represent phlegmon/developing abscess. Underlying mass is considered less likely but not entirely excluded. Direct visualization recommended for further evaluation. This could be due to an infectious process or angioedema. No significant lymphadenopathy. IMPRESSION: The palatine tonsils, uvula, and right aryepiglottic folds are thickened and edematous. There is also trace prevertebral edema noted. This results in moderate narrowing of the airway. Epiglottis is norm al in thickness. Low-density thickening of the right hypopharynx which protrudes into the airway lume n and measures approximately 1 cm. This could represent phlegmon/developing abscess. Underlying mass is considered less likely but not entirely excluded. Direct visualization recommended for further aracely luation. This could be due to an infectious process or angioedema. This finding was called/faxed to the emergency department following dictation. ACT 112: Negative or not required by law. Electronically signed by: Alonzo Graham M.D. 09/12/2021 7:27 AM
[2021-09-12] MEDS ORDERED: ICU PROTOCOL FOR HYPERGLYCEMIA PRN (08:17)
[2021-09-12] MEDS ORDERED: ALBUT/IPRATROP 3MG/0.5MG NEB 3 ML VIAL INH PRN (08:17)
[2021-09-12] MEDS ORDERED: SODIUM CHLORIDE 0.9% 1000ML 1,000 ML IV SCH (08:17)
[2021-09-12] MEDS: FAMOTIDINE 20 MG in SYRINGE 3 ML IV SCH ×2 (10:03→21:01)
[2021-09-12] MEDS: ENOXAPARIN INJ 40 MG/0.4 ML SYR SQ SCH (10:03)
--- NOTE | 2021-09-12 10:06 | History and Physical Report ---
DATE OF ADMISSION: 09/12/2021 CHIEF COMPLAINT: Severe sore throat, possible epiglottitis versus angioedema. HISTORY OF PRESENT ILLNESS: This is a 51-year-old male with past medical history significant for hemochromatosis, hyperlipidemia, intermittent asthma, hypertension, left ventricular hypertrophy, GERD, nonalcoholic fatty liver disease, history of chronic cholecystitis, cholelithiasis, history of impacted gallstone, history of noise-induced hearing loss, history of ventral hernia, who lives at home, presents with severe sore throat. The patient says he is having cough since last Saturday. Last night he had fever, sore throat, a lot of pain, which prompted him to come to the ER. In the ER, imaging studies showed possible epiglottitis versus angioedema. ER talked to anesthesia and also ICU and was advised to monitor in the ICU. Received Decadron, vancomycin and Rocephin in the ER and also Benadryl. Currently, resting comfortably and hemodynamically stable except for cough with some greenish phlegm and severe throat pain. No other symptoms. The patient does not have any headache. No shortness of breath, no nausea. Appetite is good. No chest pain, no abdominal pain, no diarrhea, no body aches, no blurred visions, no earache. Has some runny nose. Currently, resting comfortably and hemodynamically stable. ALLERGIES: ZOFRAN, BACTRIM, AUGMENTIN, HYDROCHLOROTHIAZIDE. PAST MEDICAL HISTORY: As mentioned above. PAST SURGICAL HISTORY: Colonoscopy, dental surgery, EGD, hemorrhoidectomy, laparoscopic cholecystectomy. MEDICATIONS: The patient is on ascorbic acid 500 mg p.o. daily, DuoNeb q.i.d. p.r.n., lisinopril 40 mg p.o. daily, nortriptyline 10-20 mg p.m. p.r.n., omeprazole 40 mg p.o. a.m., prochlorperazine 5 mg p.o. q.8 p.r.n., simvastatin 40 mg p.o. daily, Nasacort 2 sprays intranasally daily. FAMILY HISTORY: Significant for mother has allergies, arthritis, hypertension; father has prostate cancer and eye problems. SOCIAL HISTORY: . Quit smoking in 1999, smoked 1 pack a day for 17 years. No alcohol currently. No drug use. REVIEW OF SYSTEMS: As per HPI. Rest of the review of systems is negative. PHYSICAL EXAMINATION: GENERAL: The patient is of moderate build, not in acute distress. VITAL SIGNS: Temperature 36.5, pulse 85, respiratory rate 16, blood pressure 151/104, oxygen 96% on room air. HEENT: Pupils equal, round and reactive to light. Oral mucosa, pharyngeal erythema seen. No obvious swelling seen. NECK: No JVD. No neck masses seen. CARDIOVASCULAR: S1 and S2 heard. Regular rate and rhythm. No murmur, no gallop. RESPIRATORY SYSTEM: Normal AP diameter. No accessory muscle use. No wheezing, no crackles. ABDOMEN: Soft, bowel sounds present, nontender, no distention. CENTRAL NERVOUS SYSTEM: Cranial nerves II-XII grossly intact, nonfocal. EXTREMITIES: No edema, no erythema. LABORATORY DATA: WBC 7.8, hemoglobin 14.9, hematocrit 43.8, platelets 325. Sodium 132, potassium 3.5, chloride 108, bicarbonate 27, BUN 9, creatinine 1.1, serum glucose 109. Lactate 1.1, calcium 9.2. C-reactive protein 1.14. SARS-CoV-2 PCR positive. Influenza A and B negative. RSV negative. Group A strep PCR not detected. Soft tissue of the neck showed the palatine tonsils, uvula and right aryepiglottic folds are thickened and edematous. There is also trace prevertebral edema noted. These result in moderate narrowing of the airway. Epiglottis is normal in thickness. Low density thickening of the right hypopharynx, which protrudes into the airway lumen and measures approximately 1 cm, this could represent phlegmon or developing abscess. Underlying mass is considered less likely, but not entirely excluded. Direct visualization recommended for further evaluation. This could be due to an infectious process or angioedema. ASSESSMENT AND PLAN: This is a 51-year-old male who presents with severe sore throat and found to have possible angioedema versus developing abscess in the epiglottic folds. 1. Severe sore throat, COVID positive. The patient is asymptomatic COVID-ortiz, but CT scan preliminary report showing possible abscess versus angioedema. Empirically, in the Emergency Room, he was started on Rocephin and vancomycin, received Decadron and Benadryl. Closely monitor in the intensive care unit. We will continue with vancomycin and Levaquin as THE PATIENT IS ALLERGIC TO PENICILLINS. Gentle fluids. Consult critical care, anesthesia, closely monitor and ENT consult. 2. COVID-19. Currently, asymptomatic. We will monitor. 3. Hypertension. Holding the lisinopril because of possible angioedema. We will place him on IV hydralazine p.r.n. 4. Gastroesophageal reflux disease. We will place him on IV Pepcid. 5. Hyperlipidemia, on statin. 6. History of hereditary hemochromatosis, hemoglobin is okay at 14.9. 7. History of asthma. On DuoNeb p.r.n. 8. History of left ventricular hypertrophy, history of fatty liver disease and chronic cholecystitis. We will monitor.Needs followup. 9. Deep venous thrombosis prophylaxis, on Lovenox. DISPOSITION: Closely monitor in the ICU. Level 1 full code. Expect to discharge home and follow with family doctor. Job ID: [id number] MTDD
--- NOTE | 2021-09-12 10:15 | Anesthesiology Consultation ---
Date of Service September 12, 2021 Assessment & Plan Additional Notes Patient is 51M with history of COVID infection and throat pain. Anesthesia consulted in event of urgent need for tracheal intubation. Currently patient resting in NAD on room air. Agree with treatment with steroid treatment for pharyngeal edema. Patient states he is able to breathe normally currently with slight "lump in throat", handling secretions appropriately and vitals stable. Informed patient of current respiratory status and the possibility of placing a breathing device if his clinical status were to worsen. Please contact anesthesia if patient decompensates/need for intubation arises. History Height/Weight Height: 5 ft 8 in Weight: 100.5 kg Allergies Allergy/AdvReac Type Severity Reaction Status Date / Time ondansetron Allergy Mild RASH Verified 09/12/21 02:27 sulfamethoxazole [Bactrim] Allergy Mild chest hurt Verified 09/12/21 02:27 trimethoprim [Bactrim] Allergy Mild chest hurt Verified 09/12/21 02:27 amoxicillin [From Augmentin] AdvReac Severe Severe Verified 09/12/21 02:27 bloating and abdominal pain clavulanic acid AdvReac Severe Severe Verified 09/12/21 02:27 [From Augmentin] bloating and abdominal pain hydrochlorothiazide AdvReac Intermediate muscle Verified 09/12/21 02:27 pain, confusion, fatigue Medications Home Medications Medication Instructions Recorded Confirmed Last Taken ipratropium 0.5 mg-albuterol 3 mg 3 ml INHALATION QID PRN 12/02/20 09/12/21 Unknown (2.5 mg base)/3 mL nebulization soln lisinopril 40 mg tablet 40 mg PO DAILY 12/02/20 09/12/21 09/11/21 omeprazole 40 mg capsule,delayed 40 mg PO QAM 12/02/20 09/12/21 09/11/21 release ascorbic acid (vitamin C) 500 mg 500 mg PO DAILY 06/21/21 09/12/21 09/11/21 chewable tablet nortriptyline 10 mg capsule 10 - 20 mg PO QPM PRN 06/21/21 09/12/21 Unknown prochlorperazine maleate 5 mg 5 mg PO Q8 PRN 06/21/21 09/12/21 Unknown tablet simethicone 125 mg capsule 125 mg PO DAILY PRN 06/21/21 09/12/21 Unknown simvastatin 40 mg tablet 40 mg PO DAILY 06/21/21 09/12/21 09/11/21 triamcinolone acetonide 55 mcg 2 spray INTRANASAL DAILY 06/21/21 09/12/21 09/11/21 nasal spray aerosol (Nasacort Allergy) Past Medical History Medical History Dyslipidemia Esophageal reflux Hypertension Past Family History Family History Mother Hypertension Other Cancer Denies family history of Heart disease Stroke Past Surgical History Surgical History H/O colonoscopy History of cholecystectomy Social History Smoking Status: Former smoker tobacco type: smokeless tobacco Do You Dip or Chew Tobacco: Yes Hx Alcohol Use: No Hx Substance Use: No substance use type: does not use Physical Exam Vital Signs Last Vital Signs Temp 97.7 F 09/12/21 08:17 Pulse 80 09/12/21 10:00 Resp 16 09/12/21 10:00 BP 131/92 09/12/21 10:00 Pulse Ox 94 09/12/21 10:00 ENMT Mouth: no dentition abnormality and no macroglossia Thyromental Distance: > or= 3.5 Finger Breadths Mallampati Class: III no obvious swelling in oropharynx Neck normal visual inspection and + thick neck Respiratory normal respiratory effort Auscultation: lungs clear to auscultation bilaterally Cardiovascular Rate/Rhythm: regular rate and regular rhythm Psychiatric Orientation: alert and oriented x 3 Testing Laboratory Results 09/12/21 01:33 09/12/21 01:[address] Soft Tissue/Neck 09/12/21: MPRESSION: The palatine tonsils, uvula, and right aryepiglottic folds are thickened and edematous. There is also trace prevertebral edema noted. This results in moderate narrowing of the airway. Epiglottis is normal in thickness. Low-density thickening of the right hypopharynx which protrudes into the airway lumen and measures approximately 1 cm. This could represent phlegmon/developing abscess. Underlying mass is considered less likely but not entirely excluded. Direct visualization recommended for further evaluation. This could be due to an infectious process or angioedema. This finding was called/faxed to the emergen cy department following dictation.
[2021-09-12] MEDS: levoFLOXacin/D5W 500 MG/100 ML BAG IV SCH (10:16)
[2021-09-12] MEDS: ASCORBIC ACID 500 MG TAB PO SCH (10:23)
[2021-09-12] MEDS: SIMVASTATIN 40 MG TAB PO SCH (10:23)
--- NOTE | 2021-09-12 11:10 | Pharmacy Report ---
Pharmacy Vanc AUC Short Note - Date of Service September 12, 2021 - Assessment & Plan Assessment 51 year old M receiving empiric vancomycin + levofloxacin for treatment of possible epiglottitis. * Pt admitted with severe sore throat. CT scan showed possible epiglottitis versus angioedema. * RSV, influenza, group A strep PCR were negative. Patient tested positive for SARS-CoV-2. BC pending. Plan Vancomycin * Loading dose: 2000 mg IV given in ED * Maintenance dose: 1250 mg (12.5 mg/kg) IV q12h * Regimen is predicted to achieve target AUC/KVNG of 400-600 mg/L.hr and may be associated with a 16 % risk of nephrotoxicity * AUC/KVNG is the preferred PK/PD target for vancomycin * AUC guided dosing is effective and associated with decreased risk of nephrotoxicity compared to traditional trough targets * If patient continues on vanco for > 48 hours, drug level will be obtained to calculate actual AUC Pharmacy will continue to follow and will adjust dose/frequency as necessary. Thank you.
[2021-09-12] MEDS ORDERED: CHLORASEPTIC 1.4% SOLN 180 ML BTL MT PRN (13:33)
--- NOTE | 2021-09-12 15:59 | Communication Note ---
Date of Service: September 12, 2021 51-year-old with significant past medical history of hemochromatosis, intermittent asthma, hyperlipidemia, nonalcoholic fatty liver disease with remote history of possible angioedema and allergic to penicillin was admitted with severe pain in the throat some swelling. CT of the soft tissue of the neck revealed palatine tonsils, uvula and right aryepiglottic folds thickened and edematous with moderate narrowing of the airway. He was noted to be Covid 19+ as well without any significant desaturation on room air. He has been receiving IV dexamethasone, IV H2 cate, intravenous levofloxacin and vancomycin, Benadryl and nebulized bronchodilator. He will be seen by state assessed properties director and ENT specialist. Remains stable medically. Full progress note will be done tomorrow by the hospitalist. DR Chelsea Galindo
[2021-09-12] MEDS: VANCOMYCIN HCL 1,250 MG in SODIUM CHLORIDE 0.9% 250 ML IV SCH (16:35)
[2021-09-12] MEDS: hydrALAZINE HCL 20 MG/ML VIAL IV PRN (21:01)
[2021-09-13] MEDS: VANCOMYCIN HCL 1,250 MG in SODIUM CHLORIDE 0.9% 250 ML IV SCH ×2 (03:46→15:04)
[2021-09-13 07:38] LABS: Basophils # (auto) 0.03 K/uL (0-0.2); Basophils % (auto) 0.3 %; Eosinophils # (auto) 0.01 K/uL (0-0.5); Eosinophils % (auto) 0.1 %; Hematocrit (blood only) 43.3 % (42-52); Hemoglobin 14.7 g/dL (14.0-18.0); Immature Granulocytes # (auto) 0.02 K/uL (0.00-0.02); Immature Granulocytes % (auto) 0.2 %; Lymphocytes # (auto) 1.92 K/uL (1.2-3.4); Lymphocytes % (auto) 18.9 %; Mean Corpuscular Hemoglobin 29.3 pg (25-34); Mean Corpuscular Hgb Conc 33.9 g/dL (32-36); Mean Corpuscular Volume 86.4 fL (80-100); Mean Platelet Volume 10.1 fL (7.4-10.4); Monocytes # (auto) 1.07 K/uL (0.11-0.59); Monocytes % (auto) 10.5 %; Neutrophils # (auto) 7.13 K/uL (1.4-6.5); Platelet Count 342 K/uL (130-400); RDW Coefficient of Variation 13.8 % (11.5-14.5); RDW Standard Deviation 43.4 fL (36.4-46.3); Red Blood Count 5.01 M/uL (4.7-6.1); White Blood Count 10.18 K/uL (4.8-10.8)
[2021-09-13] MEDS: ASCORBIC ACID 500 MG TAB PO SCH (08:04)
[2021-09-13] MEDS: ENOXAPARIN INJ 40 MG/0.4 ML SYR SQ SCH (08:04)
[2021-09-13] MEDS: SIMVASTATIN 40 MG TAB PO SCH (08:04)
[2021-09-13] MEDS: dexAMETHasone 10 MG in SYRINGE 0 ML IV SCH (08:05)
[2021-09-13 08:07] LABS: Albumin Level 3.6 gm/dl (3.4-5.0); BUN Creatinine Ratio 11.2 (10-20); Bilirubin Direct 0.2 mg/dl (0-0.2); Calcium 9.2 mg/dl (8.5-10.1); Creatinine Clr Calc Pharmacy 89.4 ml/min; Est GFR (African American) 87.7 ml/min; Est GFR (Non-African American) 75.7 ml/min; Magnesium 2.4 mg/dl (1.8-2.4); Potassium 3.4 mmol/L (3.5-5.1)
[2021-09-13 08:09] LABS: Bilirubin,Total 0.9 mg/dl (0.2-1); Phosphorus 2.5 mg/dl (2.5-4.9); Total Protein 7.5 gm/dl (6.4-8.2)
[2021-09-13] MEDS ORDERED: carvediloL 6.25 MG TAB PO SCH (09:00)
[2021-09-13] MEDS: POTASSIUM CHLORIDE / WTR 10 MEQ/100 ML PLCT IV SCH ×2 (09:25→10:33)
[2021-09-13] MEDS: levoFLOXacin/D5W 500 MG/100 ML BAG IV SCH (09:25)
[2021-09-13] MEDS: FAMOTIDINE 20 MG in SYRINGE 3 ML IV SCH ×2 (10:46→21:22)
[2021-09-13] MEDS: hydrALAZINE HCL 20 MG/ML VIAL IV PRN (12:32)
[2021-09-13] MEDS: carvediloL 6.25 MG TAB PO SCH ×2 (13:41→19:22)
[2021-09-13] MEDS: diphenhydrAMINE 50 MG/ML VIAL IV PRN ×2 (14:47→23:59)
--- NOTE | 2021-09-13 16:38 | Hospitalist Progress Note ---
Date of Service September 13, 2021 Assessment & Plan (1) Pharyngeal edema: Plan: Patient is a 51 yr male who presents with severe sore throat and found to have possible angioedema versus developing abscess in the epiglottic folds. Angioedema Possible Pharyngeal Abscess ? Secondary to Allergic reaction from cleaning chemicals Vs Lisinopril --Neck CT:The palatine tonsils, uvula, and right aryepiglottic folds are thickened and edematous. There is also trace prevertebral edema noted. This results in moderate narrowing of the airway. Epiglottis is normal in thickness. Low-density thickening of the right hypopharynx which protrudes into the airway lumen and measures approximately 1 cm. This could represent phlegmon/developing abscess. Underlying mass is considered less likely but not entirely excluded. Direct visualization recommended for further evaluation. This could be due to an infectious process or angioedema. This finding was called/faxed to the emergency department following dictation. -Patient tolerated Rocephin in ED --Continue Vancomycin, Rocephin -ENT consulted -Continue dexamethasone, famotidine, Benadryl PRN Lisinopril discontinued Blood cultures negative to date N.p.o. for now COVID-19 --CTA:No evidence of pulmonary embolism. Scattered bilateral ground glass opacities compatible with history of Covid pneumonia. --Currently asymptomatic -Saturating well on room air Hypertension Lisinopril DCed Started on Coreg Hydralazine as needed GERD on Pepcid Hyperlipidemia on statin. H/O Hereditary hemochromatosis Monitor CBC H/O Asthma No signs of exacerbation H/O Left ventricular hypertrophy H/O Fatty liver disease and chronic cholecystitis DVT Px: Lovenox SQ Code Status Full Code Admission and Anticipated Discharge Date Admission Date: September 12, 2021 Subjective Patient is seen and examined at bedside States feeling better today Denies any dysphagia, odynophagia Also denies any cough, shortness of breath, dizziness, nausea, abdominal pain Review of Systems Review of Systems: All systems reviewed & are unremarkable except as noted in Subjective Physical Exam Physical Exam: Physical Exam: Vitals signs as noted above General Appearance:Moderately built and nourished, no apparent distress Head: normocephalic, Atraumatic Eyes: normal inspection, EOMI Neck: supple, Trachea midline Respiratory/Chest: Normal breath sounds, CTA Cardiovascular: S1, S2, No murmur Abdomen/GI:Soft, Non tender, Bowel sounds present Extremities/Musculoskeletal:normal inspection, no edema Neurologic/Psych:AAOX3, grossly no focal neurological deficits Skin: normal color, warm Results & Data Results & Data ([facility]) Vital Signs (Past 12 Hours) Vital Signs Temp Pulse Pulse Resp BP BP Pulse Ox 09/13/21 15:41 78 16 95 09/13/21 14:57 92 H 09/13/21 14:47 85 152/92 H 09/13/21 12:34 87 158/112 H 96 09/13/21 12:32 87 96 09/13/21 12:30 78 97 09/13/21 12:28 88 97 09/13/21 12:26 81 97 09/13/21 12:24 80 97 09/13/21 12:22 87 96 09/13/21 12:20 82 97 09/13/21 12:18 86 97 09/13/21 12:16 85 96 09/13/21 12:14 86 97 09/13/21 12:12 84 96 09/13/21 12:10 88 96 09/13/21 12:08 85 97 09/13/21 12:06 82 96 09/13/21 12:04 92 H 97 09/13/21 12:02 93 H 97 09/13/21 12:00 93 H 170/121 H 97 09/13/21 11:00 36.9 C 71 16 162/114 H 95 09/13/21 10:01 82 163/104 H 97 09/13/21 10:00 84 97 09/13/21 09:00 76 96 09/13/21 08:17 09/13/21 08:00 74 96 09/13/21 07:34 36.6 C 85 19 160/113 H 96 Pulse Ox 09/13/21 15:41 09/13/21 14:57 09/13/21 14:47 09/13/21 12:34 09/13/21 12:32 09/13/21 12:30 09/13/21 12:28 09/13/21 12:26 09/13/21 12:24 09/13/21 12:22 09/13/21 12:20 09/13/21 12:18 09/13/21 12:16 09/13/21 12:14 09/13/21 12:12 09/13/21 12:10 09/13/21 12:08 09/13/21 12:06 09/13/21 12:04 09/13/21 12:02 09/13/21 12:00 09/13/21 11:00 09/13/21 10:01 09/13/21 10:00 09/13/21 09:00 09/13/21 08:17 96 09/13/21 08:00 09/13/21 07:34 Laboratory Results Short CBC 09/13/21 Range/Units 06:59 WBC 10.18 (4.8-10.8) K/uL Hgb 14.7 (14.0-18.0) g/dL Hct 43.3 (42-52) % Plt Count 342 (130-400) K/uL BMP 09/13/21 06:59 Sodium 141 Potassium 3.4 L Chloride 110 H Carbon Dioxide 25 BUN 13 Creatinine 1.12 Glucose 109 H Calcium 9.2 Liver Function 09/13/21 Range/Units 06:59 Total Bilirubin 0.9 (0.2-1) mg/dl Direct Bilirubin 0.2 (0-0.2) mg/dl AST 20 (15-37) U/L ALT 35 (12-78) Alkaline Phosphatase 64 (45-117) U/L Albumin 3.6 (3.4-5.0) gm/dl
[2021-09-14] MEDS: hydrALAZINE HCL 20 MG/ML VIAL IV PRN (00:26)
[2021-09-14] MEDS ORDERED: VANCOMYCIN TROUGH ONE (04:30)
[2021-09-14 05:01] LABS: Basophils # (auto) 0.02 K/uL (0-0.2); Basophils % (auto) 0.2 %; Hemoglobin 14.3 g/dL (14.0-18.0); Immature Granulocytes # (auto) 0.04 K/uL (0.00-0.02); Immature Granulocytes % (auto) 0.3 %; Lymphocytes # (auto) 2.07 K/uL (1.2-3.4); Lymphocytes % (auto) 17.1 %; Mean Corpuscular Hemoglobin 29.1 pg (25-34); Mean Corpuscular Volume 85.5 fL (80-100); Mean Platelet Volume 10.3 fL (7.4-10.4); Monocytes # (auto) 1.06 K/uL (0.11-0.59); Monocytes % (auto) 8.7 %; Neutrophils # (auto) 8.93 K/uL (1.4-6.5); Neutrophils % (auto) 73.7 %; Platelet Count 420 K/uL (130-400); RDW Coefficient of Variation 13.7 % (11.5-14.5); RDW Standard Deviation 42.5 fL (36.4-46.3); Red Blood Count 4.91 M/uL (4.7-6.1); White Blood Count 12.12 K/uL (4.8-10.8)
[2021-09-14 05:23] LABS: Albumin Level 3.6 gm/dl (3.4-5.0); BUN Creatinine Ratio 15.2 (10-20); Bilirubin Direct 0.2 mg/dl (0-0.2); Calcium 8.9 mg/dl (8.5-10.1); Creatinine Clr Calc Pharmacy 88.6 ml/min; Est GFR (African American) 86.7 ml/min; Est GFR (Non-African American) 74.8 ml/min; Magnesium 2.7 mg/dl (1.8-2.4); Potassium 3.6 mmol/L (3.5-5.1)
[2021-09-14 05:34] LABS: Bilirubin,Total 0.9 mg/dl (0.2-1); Phosphorus 3.1 mg/dl (2.5-4.9); Total Protein 7.1 gm/dl (6.4-8.2)
[2021-09-14] MEDS: VANCOMYCIN HCL 1,250 MG in SODIUM CHLORIDE 0.9% 250 ML IV SCH (05:37)
[2021-09-14] MEDS: carvediloL 6.25 MG TAB PO SCH (08:10)
[2021-09-14] MEDS: SIMVASTATIN 40 MG TAB PO SCH (08:10)
[2021-09-14] MEDS: ASCORBIC ACID 500 MG TAB PO SCH (08:11)
[2021-09-14] MEDS: ENOXAPARIN INJ 40 MG/0.4 ML SYR SQ SCH ×2 (08:11→08:27)
[2021-09-14] MEDS: FAMOTIDINE 20 MG in SYRINGE 3 ML IV SCH (08:12)
[2021-09-14] MEDS: dexAMETHasone 10 MG in SYRINGE 0 ML IV SCH (08:33)
[2021-09-14] MEDS ORDERED: cefTRIAXone SODIUM 2,000 MG in DEXTROSE 5% 50 ML IV SCH (10:00)
--- NOTE | 2021-09-14 14:24 | Hospitalist Progress Note ---
Date of Service September 14, 2021 Assessment & Plan (1) Pharyngeal edema: Plan: Patient is a 51 yr male who presents with severe sore throat and found to have possible angioedema versus developing abscess in the epiglottic folds. Angioedema Possible Pharyngeal Abscess ? Secondary to Allergic reaction from cleaning chemicals Vs Lisinopril --Neck CT:The palatine tonsils, uvula, and right aryepiglottic folds are thickened and edematous. There is also trace prevertebral edema noted. This results in moderate narrowing of the airway. Epiglottis is normal in thickness. Low-density thickening of the right hypopharynx which protrudes into the airway lumen and measures approximately 1 cm. This could represent phlegmon/developing abscess. Underlying mass is considered less likely but not entirely excluded. Direct visualization recommended for further evaluation. This could be due to an infectious process or angioedema. This finding was called/faxed to the emergency department following dictation. -Patient tolerated Rocephin in ED --Continue Vancomycin, Rocephin -ENT consulted -Continue dexamethasone, famotidine, Benadryl PRN Lisinopril discontinued Blood cultures negative to date Speech eval completed Tolerating diet Refuses to stay for evaluation by ENT--commended to follow-up as outpatient Oral Thrush Present on Clotrimazole COVID-19 --CTA:No evidence of pulmonary embolism. Scattered bilateral ground glass opacities compatible with history of Covid pneumonia. --Currently asymptomatic -Saturating well on room air Hypertension Lisinopril DCed Started on Coreg Hydralazine as needed GERD on Pepcid Hyperlipidemia on statin. H/O Hereditary hemochromatosis Monitor CBC H/O Asthma No signs of exacerbation H/O Left ventricular hypertrophy H/O Fatty liver disease and chronic cholecystitis DVT Px: Lovenox SQ Code Status Full Code Admission and Anticipated Discharge Date Admission Date: September 12, 2021 Subjective Patient is seen and examined at bedside Feels well Eager to get discharged He denies any chest swelling, dysphagia, odynophagia, shortness of breath Also denies any cough, shortness of breath, dizziness, nausea, abdominal pain Saturating well on room air Review of Systems Review of Systems: All systems reviewed & are unremarkable except as noted in Subjective Physical Exam Physical Exam: Physical Exam: Vitals signs as noted above General Appearance:Moderately built and nourished, no apparent distress Head: normocephalic, Atraumatic Eyes: normal inspection, EOMI Neck: supple, Trachea midline Respiratory/Chest: Normal breath sounds, CTA Cardiovascular: S1, S2, No murmur Abdomen/GI:Soft, Non tender, Bowel sounds present Extremities/Musculoskeletal:normal inspection, no edema Neurologic/Psych:AAOX3, grossly no focal neurological deficits Skin: normal color, warm Results & Data Results & Data ([facility]) Vital Signs (Past 12 Hours) Vital Signs Temp Pulse Pulse Resp BP Pulse Ox Pulse Ox 09/14/21 11:30 150/102 H 09/14/21 11:12 36.5 C 89 20 117/110 H 96 09/14/21 08:00 95 09/14/21 07:30 63 09/14/21 07:15 36.6 C 82 16 134/93 97 09/14/21 04:32 149/109 H 09/14/21 04:00 36.6 C 80 18 152/103 H 96 Laboratory Results Short CBC 09/14/21 Range/Units 04:34 WBC 12.12 H (4.8-10.8) K/uL Hgb 14.3 (14.0-18.0) g/dL Hct 42.0 (42-52) % Plt Count 420 H (130-400) K/uL BMP 09/14/21 04:34 Sodium 139 Potassium 3.6 Chloride 109 H Carbon Dioxide 24 BUN 17 Creatinine 1.13 Glucose 116 H Calcium 8.9 Liver Function 09/14/21 Range/Units 04:34 Total Bilirubin 0.9 (0.2-1) mg/dl Direct Bilirubin 0.2 (0-0.2) mg/dl AST 24 (15-37) U/L ALT 37 (12-78) Alkaline Phosphatase 62 (45-117) U/L Albumin 3.6 (3.4-5.0) gm/dl
--- NOTE | 2021-09-14 14:24 | Pharmacy Report ---
Pharmacy Abx Dose Short Note - Date of Service September 14, 2021 - Assessment & Plan Assessment * 51 year old M receiving empiric vancomycin + ceftriaxone for treatment of possible epiglottitis. * Pt admitted with severe sore throat. CT scan showed possible epiglottitis versus angioedema. * RSV, influenza, group A strep PCR were negative. Patient tested positive for SARS-CoV-2. BC remain negative to date. * Renal fxn stable Plan Vancomycin * Current maintenance dose: 1250 mg (12.5 mg/kg) IV q12h * Trough level obtained today prior to 4th dose = 11mcg/mL indicating current dose is likely to achieve target AUC/KVNG 400-600 with possible 9% risk of nephrotoxicity. Plan to continue current regimen. * AUC/KVNG is the preferred PK/PD target for vancomycin * AUC guided dosing is effective and associated with decreased risk of nephrotoxicity compared to traditional trough targets * If patient continues on vanco for > 48 hours, drug level will be obtained to calculate actual AUC Pharmacy will continue to follow and will adjust dose/frequency as necessary. Thank you.
[2021-09-14] MEDS ORDERED: CLOTRIMAZOLE 10 MG TROCHE BUCCAL SCH (15:00)
--- NOTE | 2021-09-14 19:22 | Discharge Summary ---
Date of Service September 14, 2021 Admission HPI Per Admitting Provider CHIEF COMPLAINT: Severe sore throat, possible epiglottitis versus angioedema. HISTORY OF PRESENT ILLNESS: This is a 51-year-old male with past medical history significant for hemochromatosis, hyperlipidemia, intermittent asthma, hypertension, left ventricular hypertrophy, GERD, nonalcoholic fatty liver disease, history of chronic cholecystitis, cholelithiasis, history of impacted gallstone, history of noise-induced hearing loss, history of ventral hernia, who lives at home, presents with severe sore throat. The patient says he is having cough since last Saturday. Last night he had fever, sore throat, a lot of pain, which prompted him to come to the ER. In the ER, imaging studies showed possible epiglottitis versus angioedema. ER talked to anesthesia and also ICU and was advised to monitor in the ICU. Received Decadron, vancomycin and Rocephin in the ER and also Benadryl. Currently, resting comfortably and hemodynamically stable except for cough with some greenish phlegm and severe throat pain. No other symptoms. The patient does not have any headache. No shortness of breath, no nausea. Appetite is good. No chest pain, no abdominal pain, no diarrhea, no body aches, no blurred visions, no earache. Has some runny nose. Currently, resting comfortably and hemodynamically stable. Admission Exam Per Admitting Provider PHYSICAL EXAMINATION: GENERAL: The patient is of moderate build, not in acute distress. VITAL SIGNS: Temperature 36.5, pulse 85, respiratory rate 16, blood pressure 151/104, oxygen 96% on room air. HEENT: Pupils equal, round and reactive to light. Oral mucosa, pharyngeal erythema seen. No obvious swelling seen. NECK: No JVD. No neck masses seen. CARDIOVASCULAR: S1 and S2 heard. Regular rate and rhythm. No murmur, no gallop. RESPIRATORY SYSTEM: Normal AP diameter. No accessory muscle use. No wheezing, no crackles. ABDOMEN: Soft, bowel sounds present, nontender, no distention. CENTRAL NERVOUS SYSTEM: Cranial nerves II-XII grossly intact, nonfocal. EXTREMITIES: No edema, no erythema. Principal Diagnosis Angioedema Possible Pharyngeal Abscess Oral Thrush Hypertension Discharge Data Allergies Allergy/AdvReac Type Severity Reaction Status Date / Time ondansetron Allergy Mild RASH Verified 09/12/21 02:27 sulfamethoxazole [Bactrim] Allergy Mild chest hurt Verified 09/12/21 02:27 trimethoprim [Bactrim] Allergy Mild chest hurt Verified 09/12/21 02:27 amoxicillin [From Augmentin] AdvReac Severe Severe Verified 09/12/21 02:27 bloating and abdominal pain clavulanic acid AdvReac Severe Severe Verified 09/12/21 02:27 [From Augmentin] bloating and abdominal pain hydrochlorothiazide AdvReac Intermediate muscle Verified 09/12/21 02:27 pain, confusion, fatigue Consultations 09/12/21 05:39 ED Decision to Admit Stat 09/12/21 08:17 Consult Anesthesiology Routine 09/12/21 08:37 Consult Otolaryngology (Head and Neck) Routine Ordered Studies 09/12/21 01:18 CT soft tissue neck w con Urgent Hospital Course (1) Pharyngeal edema: Patient is a 51 yr male who presents with severe sore throat and found to have possible angioedema versus developing abscess in the epiglottic folds. Angioedema Possible Pharyngeal Abscess ? Secondary to Allergic reaction from cleaning chemicals Vs Lisinopril --Neck CT:The palatine tonsils, uvula, and right aryepiglottic folds are thickened and edematous. There is also trace prevertebral edema noted. This results in moderate narrowing of the airway. Epiglottis is normal in thickness. Low-density thickening of the right hypopharynx which protrudes into the airway lumen and measures approximately 1 cm. This could represent phlegmon/developing abscess. Underlying mass is considered less likely but not entirely excluded. Direct visualization recommended for further evaluation. This could be due to an infectious process or angioedema. This finding was called/faxed to the emergency department following dictation. -Patient tolerated Rocephin in ED --Continue Vancomycin, Rocephin -ENT consulted -Continue dexamethasone, famotidine, Benadryl PRN Lisinopril discontinued Blood cultures negative to date Speech eval completed Tolerating diet Refuses to stay for evaluation by ENT--commended to follow-up as outpatient Oral Thrush Present on Clotrimazole COVID-19 --CTA:No evidence of pulmonary embolism. Scattered bilateral ground glass opacities compatible with history of Covid pneumonia. --Currently asymptomatic -Saturating well on room air Hypertension Lisinopril DCed Started on Coreg Hydralazine as needed GERD on Pepcid Hyperlipidemia on statin. H/O Hereditary hemochromatosis Monitor CBC H/O Asthma No signs of exacerbation H/O Left ventricular hypertrophy H/O Fatty liver disease and chronic cholecystitis DVT Px: Lovenox SQ Code Status Full Code Total Time Total Time Spent Total Time Spent (In Minutes): 43 minutes Discharge Plan Discharge Items Patient Disposition: Home - Self-Care Reason For Visit: THROAT PAIN Discharge Diagnosis: Angioedema Possible Pharyngeal Abscess Oral Thrush Hypertension Activity: Per Instructions section Exercise/Sports: Wait until after follow-up appointment Non-emergency contact: Primary Care Provider and Specialist Call non-emergency contact if: you have any medication questions, your symptoms worsen, your pain is concerning for you and you have a fever Follow-up/Referrals: Evelyn Goldman MD [Physician] - (Dr Goldman's office will call you with an appointment. [facility] [address] [address] ) Bernadine Marmolejo DO [Primary Care Provider] - (Date & Time 09/20/2021 1:40 PM Provider Bernadine Marmolejo DO Department Family Practice [facility] PLEASE NOTE THAT THIS IS A TELEMEDICINE APPOINTMENT. PLEASE FOLLOW THE INSTRUCTIONS PROVIDED IN YOUR EMAIL. IF YOU HAVE ANY QUESTIONS REGARDING THIS APPOINTMENT, PLEASE CALL ) Diet: Heart Healthy Addtl Attending Provider Instructions: Follow-up with your primary care physician on 09/20/2021 1:40 PM Follow-up with your ENT specialist Dr. Goldman:Please call for appointment Dr Goldman's office will call you with an appointment. [facility] [address] [facility] [address], [place] [address] Discussed with your physician for further adjustment of your high blood pressure medications as advised. Seek immediate medical attention if your symptoms reoccur or worsen Please take all medications as instructed on discharge list below. Please call if you have any questions or problems. You can reach a [facility] hospitalist on duty at [facility] 24 hours a day by calling [phone] Pending Studies at Discharge: No Stand-Alone Forms: My [facility], Smoking Cessation Medications and DC Order Prescriptions: New carvedilol 6.25 mg Tablet 6.25 mg PO BID Qty: 60 RF: 0 clotrimazole 10 mg Nathaniel 10 mg buccal [id number] 7 Days Qty: 30 RF: 0 famotidine 20 mg tablet 20 mg PO BID Qty: 14 RF: 0 diphenhydramine HCl [Benadryl] 25 mg capsule 25 mg PO Q8H PRN (Reason: nausea and vomiting) Qty: 1 RF: 0 cefdinir 300 mg capsule 300 mg PO BID 5 Days Qty: 10 RF: 0 Continued ipratropium-albuterol 0.5 mg-3 mg(2.5 mg base)/3 mL solution for nebulization 3 ml INHALATION QID PRN (Reason: Shortness Of Breath Or Wheezing) RF: 0 omeprazole 40 mg capsule,delayed release(DR/EC) 40 mg PO QAM RF: 0 triamcinolone acetonide [Nasacort Allergy] 55 mcg Aerosol,[place] 2 spray INTRANASAL DAILY RF: 0 nortriptyline 10 mg capsule 10 - 20 mg PO QPM PRN (Reason: Abdominal Pain) RF: 0 prochlorperazine maleate 5 mg tablet 5 mg PO Q8 PRN (Reason: Nausea) RF: 0 ascorbic acid (vitamin C) 500 mg Tablet,Chewable 500 mg PO DAILY RF: 0 simethicone 125 mg Capsule 125 mg PO DAILY PRN (Reason: Gi Upset) RF: 0 simvastatin 40 mg tablet 40 mg PO DAILY RF: 0 Discontinued lisinopril 40 mg tablet 40 mg PO DAILY RF: 0 Discharge Orders: Discharge Order (Routine); Ordered 09/14/21 Ordered By: Boo Sanchez Admission Data Admit Date/Time: 09/12/21 07:12 Attending Provider: Boo Sanchez Admit Provider: Umair Negron Primary Care Provider: Bernadine Marmolejo Other Providers: Umair Negron ; Leanna Shepherd ; Evelyn Goldman How Other Interventions: Discharge Summary Assessment (RN) Last Done: 09/14/21 16:28
== END 2021-09-14 17:05 | disposition home or self-care (01) | DRG 915 ==
LOC: ED 23:34 → 2E 09-12 07:12 → SUATTDRO 09-12 07:12 → 2E 09-12 07:52

== ENCOUNTER 2021-11-25 10:27 | Observation (INO) ==
--- NOTE | 2021-11-25 10:45 | Emergency Department Note ---
Impression & Plan TIA (transient ischemic attack), Facial droop, Leukocytosis ED Provider Note NAME: MYLES FELDMAN AGE: 51 SEX: M : 1970 ARRIVES VIA: Ambulance INFORMANT: Patient ED PROVIDER(S): Anderson Friedman DO CHIEF COMPLAINT: chest pain and facial droop HPI: Patient is a 51-year-old male with a past medical history of hypertension, COVID, paresthesias, chest pain, and hyperlipidemia who presents to the ER for elevated blood pressure, chest pain and facial droop. He notes when he woke up around 7 AM this morning noticed a chest heaviness and left arm tightness bila terally which has been present off and on for the past several weeks. He notes he is being worked up for elevated blood pressure seen here admitted and discharged. EMS noticed a subtle left-sided facial droop as well as the which has now resolved. He has no other complaints at this time. He notes the tingling in the arms have resolved. ROS: See above HPI for pertinent positives & negatives. A total of 10 systems reviewed and were otherwise negative. PAST MEDICAL HISTORY:See Below PAST SURGICAL HISTORY:See Below FAMILY HISTORY:See Below SOCIAL HISTORY:See Below HOME MEDICATIONS:See Below ALLERGIES:See Below VITALS:See Below PHYSICAL EXAMINATION: GENERAL: Sitting up in bed, alert, well appearing, well nourished, no distress, non-toxic EYE EXAM: normal conjunctiva. PERRL and EOM's grossly intact. OROPHARYNX: no exudate, no erythema, lips, buccal mucosa, and tongue normal and mucous membranes are moist NECK: supple, no nuchal rigidity, no adenopathy, non-tender LUNGS: Clear to auscultation. Normal chest wall mechanics HEART: no murmurs, S1 normal and S2 normal ABDOMEN: abdomen soft, non-tender, normo-active bowel sounds, no masses, no rebound or guarding. UPPER EXTREMITIES: upper extremities are grossly normal. LOWER EXTREMITIES: No pitting edema. NEURO EXAM: Normal sensorium, cranial nerves II-XII intact, normal speech, no weakness of arms, no weakness of legs. No drift. Finger to nose intact. Gross sensation intact. MEDICAL DECISION MAKING: Patient is a 51-year-old male who presents the ER for the above-stated complaint and combination with a facial droop which is now resolved. This was present per EMS and the . IV was established blood work was obtained. Labs show a leukocytosis of 12,000. No significant anemia. INR unremarkable. BMP with a slightly elevated glucose of 107. LFTs bilirubin was unremarkable. Troponin was negative. Covid negative. CT angio of the head and neck were clean.With the slightly elevated blood pressure and reported facial droop did feel was prudent to bring him in for further evaluation for stroke work-up. NIH is currently 0. Discussed with Pt concerning signs and symptoms to watch out for. Pt was instructed to follow up with their PCP and discussed with the patient their option to return to the ED at anytime for persistent or worsening symptoms. The appropriate anticipatory guidance and out-patient management, including indications for return to the emergency department, were explained at length to the patient and understood. Triage Nursing notes reviewed. Limited review of prior medical records performed Vital Signs: reviewed and remarkable for no significant abnormalities Differential diagnosis: Differential Diagnosis includes but is not limited to ischemic Stroke, hemorrhagic stroke, bells palsy, mass, neoplasm, migraine headache, seizure, subarachnoid hemorrhage, TIA, and transient global amnesia. ER treatment provided: See below Diagnostics interpreted by me: ECG: There is rhythm rate 70 Normal axis No PVCs QTC 421 Poor baseline in the inferior leads ST depressions in the inferior leads is consistent with previous on 11/23/2021 Cardiac Monitoring: An order was placed for continuous cardiac monitoring. The monitor shows a rate of 83 with sinus rhythm. Laboratory studies: As stated above and show below. Imaging studies: CT angio of the head neck was negative Consultation(s): Discussed with Dr. Wilkinson from [facility] for further evaluation Procedures: none Critical Care: None Past Med/Surg History Medical History Dyslipidemia Esophageal reflux Hypertension Surgical History H/O colonoscopy History of cholecystectomy Family History Mother Hypertension Other Cancer Denies family history of Heart disease Stroke Social History Smoking Status: Former smoker Tobacco Type: Smokeless Tobacco (Dip or Chew) Hx Alcohol Use: No Hx Substance Use: No Preferred Language: Malian Communication Ability: Effective Global Human Resources Director Required: No Beliefs That Will Affect Care: None marital status: Current Living Situation: Family How many Children do You have: 2 Feels Safe at Home: Yes Assistive Devices: Glasses Allergies Allergies Allergy/AdvReac Type Severity Reaction Status Date / Time atorvastatin [From Lipitor] Allergy Severe ELEVATED Verified 11/25/21 12:55 B/P, DRY COUGH, NAUSEA cetirizine [From Zyrtec] Allergy Severe THROAT Verified 11/25/21 12:55 SWELLS simvastatin Allergy Intermediate Swelling Verified 11/25/21 12:55 of Lip/Tongue/Throat ondansetron Allergy Mild RASH Verified 11/25/21 12:55 sulfamethoxazole [Bactrim] Allergy Mild chest hurt Verified 11/25/21 12:55 trimethoprim [Bactrim] Allergy Mild chest hurt Verified 11/25/21 12:55 amoxicillin [From Augmentin] AdvReac Severe Severe Verified 11/25/21 12:55 bloating and abdominal pain clavulanic acid AdvReac Severe Severe Verified 11/25/21 12:55 [From Augmentin] bloating and abdominal pain hydrochlorothiazide AdvReac Intermediate muscle Verified 11/25/21 12:55 pain, confusion, fatigue Home Meds Home Medications Medication Instructions Recorded Confirmed ipratropium 0.5 mg-albuterol 3 mg 3 ml INHALATION QID PRN 12/02/20 11/25/21 (2.5 mg base)/3 mL nebulization soln omeprazole 40 mg capsule,delayed 40 mg PO QAM 12/02/20 11/25/21 release ascorbic acid (vitamin C) 500 mg 500 mg PO QAM 06/21/21 11/25/21 chewable tablet prochlorperazine maleate 5 mg 5 mg PO Q8 PRN 06/21/21 11/25/21 tablet aspirin 81 mg tablet,delayed 81 mg PO DIRECTED PRN 10/20/21 11/25/21 release atorvastatin 20 mg tablet 20 mg PO QAM 10/20/21 11/25/21 lisinopril 40 mg tablet 40 mg PO QAM 10/20/21 11/25/21 simvastatin 40 mg tablet 40 mg PO HS 11/18/21 11/25/21 acetaminophen-caffeine 500 mg-65 2 tab PO Q4H PRN 11/25/21 11/25/21 mg tablet diphenhydramine HCl 25 mg capsule 25 mg PO Q6H PRN 11/25/21 11/25/21 (Benadryl) prednisone 20 mg tablet 20 mg PO QAM 11/25/21 11/25/21 spironolactone 25 mg tablet 25 mg PO QAM 11/25/21 11/25/21 Results & Data (ED) Vital Signs Vital Signs - 24 hr 11/25/21 10:42 11/25/21 11:17 Temperature 36.9 C Temperature Source Oral Pulse Rate 71 Pulse Rate [Left Radial] 71 Pulse Rhythm Regular Pulse Rhythm [Left Radial] Regular Pulse Strength Normal Pulse Strength [Left Radial] Normal Respiratory Rate 20 18 Respiratory Effort / Characteristics Non-Labored Spontaneous Non-Labored Respiratory Depth Normal Normal Respiratory Pattern Regular Regular Blood Pressure 176/113 H Blood Pressure [Left Arm] 144/107 H Blood Pressure Mean 134 Blood Pressure Mean [Left Arm] 119 Blood Pressure Position Sitting Blood Pressure Position [Left Arm] Lying Pulse Oximetry 97 96 Oxygen Delivery Method Room Air Room Air Sepsis Recent Fever Within 48 Hours No Sepsis New/Unexplained Change in Mental Status No Sepsis Action Taken by Nursing No Action Required Laboratory Data Result diagrams: 11/25/21 10:46 11/25/21 10:46 Lab Results 11/25/21 11/25/21 11/25/21 Range/Units 10:46 10:46 10:46 WBC 12.73 H (4.8-10.8) K/uL RBC 5.32 (4.7-6.1) M/uL Hgb 16.1 (14.0-18.0) g/dL Hct 45.9 (42-52) % MCV 86.3 (80-100) fL MCH 30.3 (25-34) pg MCHC 35.1 (32-36) g/dL RDW Std Deviation 41.7 (36.4-46.3) fL RDW Coeff of [place] 13.2 (11.5-14.5) % Plt Count 302 (130-400) K/uL MPV 9.9 (7.4-10.4) fL Immature Gran % (Auto) 1.0 % Neut % (Auto) 79.3 % Lymph % (Auto) 11.5 % [place] % (Auto) 7.9 % Eos % (Auto) 0.2 % Baso % (Auto) 0.1 % Neut # (Auto) 10.10 H (1.4-6.5) K/uL Lymph # (Auto) 1.47 (1.2-3.4) K/uL [place] # (Auto) 1.00 H (0.11-0.59) K/uL Eos # (Auto) 0.02 (0-0.5) K/uL Baso # (Auto) 0.01 (0-0.2) K/uL Immature Gran # (Auto) 0.13 H (0.00-0.02) K/uL PT 10.6 (9.0-12.0) Seconds INR 1.0 (0.9-1.1) APTT 23.7 (21.0-31.0) Seconds PTT Ratio 0.9 Sodium 138 (136-145) mmol/L Potassium 3.5 (3.5-5.1) mmol/L Chloride 103 (98-107) mmol/L Carbon Dioxide 24 (21-32) mmol/L Anion Gap 11 (3-11) BUN 18 (6-23) mg/dl Creatinine 1.27 (0.6-1.4) mg/dl Est Cr Clr Drug Dosing 78.8 ml/min Est GFR ( Amer) 75.3 ml/min Est GFR (Non-Af Amer) 65.0 ml/min BUN/Creatinine Ratio 14.2 (10-20) Glucose 107 H (70-99(Fasting)) mg/dl POC Glucose (70-99) mg/dl Calcium 9.4 (8.5-10.1) mg/dl Magnesium 2.2 (1.7-2.4) mg/dl Total Bilirubin 0.5 (0.2-1.0) mg/dl AST 16 (13-39) U/L ALT 36 (7-52) U/L Alkaline Phosphatase 55 (34-104) U/L Troponin I < 0.03 (0-0.04) ng/ml Total Protein 7.0 (6.0-8.3) gm/dl Albumin 4.3 (3.4-5.0) gm/dl Globulin 2.7 (2.5-4.0) gm/dl Albumin/Globulin Ratio 1.6 (0.9-2) SARS-CoV-2, RNA, NAAT (NEGATIVE) 11/25/21 11/25/21 Range/Units 10:50 Unknown WBC (4.8-10.8) K/uL RBC (4.7-6.1) M/uL Hgb (14.0-18.0) g/dL Hct (42-52) % MCV (80-100) fL MCH (25-34) pg MCHC (32-36) g/dL RDW Std Deviation (36.4-46.3) fL RDW Coeff of [place] (11.5-14.5) % Plt Count (130-400) K/uL MPV (7.4-10.4) fL Immature Gran % (Auto) % Neut % (Auto) % Lymph % (Auto) % [place] % (Auto) % Eos % (Auto) % Baso % (Auto) % Neut # (Auto) (1.4-6.5) K/uL Lymph # (Auto) (1.2-3.4) K/uL [place] # (Auto) (0.11-0.59) K/uL Eos # (Auto) (0-0.5) K/uL Baso # (Auto) (0-0.2) K/uL Immature Gran # (Auto) (0.00-0.02) K/uL PT (9.0-12.0) Seconds INR (0.9-1.1) APTT (21.0-31.0) Seconds PTT Ratio Sodium (136-145) mmol/L Potassium (3.5-5.1) mmol/L Chloride (98-107) mmol/L Carbon Dioxide (21-32) mmol/L Anion Gap (3-11) BUN (6-23) mg/dl Creatinine (0.6-1.4) mg/dl Est Cr Clr Drug Dosing ml/min Est GFR ( Amer) ml/min Est GFR (Non-Af Amer) ml/min BUN/Creatinine Ratio (10-20) Glucose (70-99(Fasting)) mg/dl POC Glucose 104 H (70-99) mg/dl Calcium (8.5-10.1) mg/dl Magnesium (1.7-2.4) mg/dl Total Bilirubin (0.2-1.0) mg/dl AST (13-39) U/L ALT (7-52) U/L Alkaline Phosphatase (34-104) U/L Troponin I (0-0.04) ng/ml Total Protein (6.0-8.3) gm/dl Albumin (3.4-5.0) gm/dl Globulin (2.5-4.0) gm/dl Albumin/Globulin Ratio (0.9-2) SARS-CoV-2, RNA, NAAT NEGATIVE (NEGATIVE) Administered Medications Discontinued Medications Ioversol (Optiray 320 125ml) 119 ml IV ONCE ONE Stop: 11/25/21 12:30 Last Admin: 11/25/21 12:29 Dose: 119 ml Documented by: [id number] Imaging Data Radiologist's Impression: Chest X-Ray 11/25/21 10:45 XR chest 1V portable HISTORY: Altered mental status. Stroke Like Symptoms COMPARISON: Chest 11/23/2021. FINDINGS: The lungs are clear. Cardiac silhouette is normal in size. No pleural effusions. No pneumothorax. IMPRESSION: No acute process. ACT 112: Negative or not required by law. Electronically signed by: Alonzo Graham M.D. 11/25/2021 11:[address] 11/25/21 10:[address] DOSE: HISTORY: Altered mental status. Stroke Like Symptoms TECHNIQUE: Multiaxial CT images of the head were performed without the use of intravenous contrast. Automated exposure control was utilized for this study. A dose lowering technique was utilized adhering to the principles of ALARA. Comparison: Head CT 11/11/2017. Findings: The paranasal sinuses and mastoid air cells are clear. The calvarium and skull base are intact. The ventricles and sulci are within normal limits. There is no mass, hematoma, midline shift, or acute infarct. Impression: No acute intracranial abnormality. ACT 112: Negative or not required by law. Electronically signed by: Alonzo Graham M.D. 11/25/2021 12:46 PM Head CTA 11/25/21 10:45 HEAD & NECK CTA HISTORY: Altered mental status Stroke Like Symptoms TECHNIQUE: Multiaxial CT images of the head were performed following the intravenous administration of contrast to evaluate the major cerebral vessels. Multiaxial CT images of the neck were also performed following the intravenous administration of contrast to evaluate the major cervical vessels. Maximum intensity projection images were also obtained. A dose lowering technique was utilized adhering to the principles of ALARA. COMPARISON: None. FINDINGS: There is no mass, hematoma, midline shift, or acute infarct. Visualized intracranial internal carotid arteries, distal vertebral arteries, and basilar artery are widely patent. There is no significant stenosis, occlusion, or aneurysm seen within the bilateral ACAs, MCAs, or production trainer. The major dural venous sinuses are patent. Mild calcified plaque within the bilateral carotid bifurcations. The aortic arch and proximal great vessels are widely patent. There is no significant stenosis, occlusion, or dissection identified within the bilateral common carotid, internal carotid, or vertebral arteries. A 9 mm left thyroid nodule. This does not meet CT criteria for follow-up. IMPRESSION: 1. No significant stenosis, occlusion, or aneurysm within [place]. 2. No significant stenosis, occlusion, or dissection identified within the carotid or vertebral arteries. ACT 112: Negative or not required by law. Electronically signed by: Alonzo Graham M.D. 11/25/2021 12:52 PM Neck CTA 11/25/21 10:45 HEAD & NECK CTA HISTORY: Altered mental status Stroke Like Symptoms TECHNIQUE: Multiaxial CT images of the head were performed following the intravenous administration of contrast to evaluate the major cerebral vessels. Multiaxial CT images of the neck were also performed following the intravenous administration of contrast to evaluate the major cervical vessels. Maximum intensity projection images were also obtained. A dose lowering technique was utilized adhering to the principles of ALARA. COMPARISON: None. FINDINGS: There is no mass, hematoma, midline shift, or acute infarct. Visualized intracranial internal carotid arteries, distal vertebral arteries, and basilar artery are widely patent. There is no significant stenosis, occlusion, or aneurysm seen within the bilateral ACAs, MCAs, or production trainer. The major dural venous sinuses are patent. Mild calcified plaque within the bilateral carotid bifurcations. The aortic arch and proximal great vessels are widely patent. There is no significant stenosis, occlusion, or dissection identified within the bilateral common carotid, internal carotid, or vertebral arteries. A 9 mm left thyroid nodule. This does not meet CT criteria for follow-up. IMPRESSION: 1. No significant stenosis, occlusion, or aneurysm within [place]. 2. No significant stenosis, occlusion, or dissection identified within the carotid or vertebral arteries. ACT 112: Negative or not required by law. Electronically signed by: Alonzo Graham M.D. 11/25/2021 12:52 PM Discharge Plan Visit Data Chief Complaint: Hypertension ED Provider: Anderson Friedman Discharge Problem: TIA (transient ischemic attack), Facial droop, Leukocytosis Forms Stand Alone Forms: My [facility] Prescriptions Prescriptions: No Action atorvastatin 20 mg tablet 20 mg PO QAM RF: 0 aspirin [Aspir-81] 81 mg Tablet,Delayed Release (Dr/Ec) 81 mg PO DIRECTED PRN (Reason: WHEN NEEDED) RF: 0 lisinopril 40 mg tablet 40 mg PO QAM RF: 0 simvastatin 40 mg tablet 40 mg PO HS RF: 0 Headache Relief (acetam-caff) 500-65 mg Tablet 2 tab PO Q4H PRN (Reason: Headache) RF: 0 prednisone 20 mg tablet 20 mg PO QAM RF: 0 spironolactone 25 mg tablet 25 mg PO QAM RF: 0 diphenhydramine HCl [Benadryl] 25 mg capsule 25 mg PO Q6H PRN (Reason: nausea and vomiting) RF: 0 ipratropium-albuterol 0.5 mg-3 mg(2.5 mg base)/3 mL solution for nebulization 3 ml INHALATION QID PRN (Reason: Shortness Of Breath Or Wheezing) RF: 0 omeprazole 40 mg capsule,delayed release(DR/EC) 40 mg PO QAM RF: 0 prochlorperazine maleate 5 mg tablet 5 mg PO Q8 PRN (Reason: Nausea) RF: 0 ascorbic acid (vitamin C) 500 mg Tablet,Chewable 500 mg PO QAM RF: 0 Referrals Referrals: Bernadine Marmolejo DO [Primary Care Provider] - Discharge Problem: Leukocytosis Qualifiers: Leukocytosis type: unspecified Qualified Code(s): D72.829 - Elevated white blo od cell count, unspecified
[2021-11-25 10:51] LABS: Basophils # (auto) 0.01 K/uL (0-0.2); Basophils % (auto) 0.1 %; Eosinophils # (auto) 0.02 K/uL (0-0.5); Eosinophils % (auto) 0.2 %; Hematocrit (blood only) 45.9 % (42-52); Hemoglobin 16.1 g/dL (14.0-18.0); Immature Granulocytes # (auto) 0.13 K/uL (0.00-0.02); Lymphocytes # (auto) 1.47 K/uL (1.2-3.4); Lymphocytes % (auto) 11.5 %; Mean Corpuscular Hemoglobin 30.3 pg (25-34); Mean Corpuscular Hgb Conc 35.1 g/dL (32-36); Mean Corpuscular Volume 86.3 fL (80-100); Mean Platelet Volume 9.9 fL (7.4-10.4); Monocytes % (auto) 7.9 %; Neutrophils % (auto) 79.3 %; Platelet Count 302 K/uL (130-400); RDW Coefficient of Variation 13.2 % (11.5-14.5); RDW Standard Deviation 41.7 fL (36.4-46.3); Red Blood Count 5.32 M/uL (4.7-6.1); White Blood Count 12.73 K/uL (4.8-10.8)
[2021-11-25 11:00] LABS: Partial Thromboplastin Ratio 0.9; Partial Thromboplastin Time 23.7 Seconds (21.0-31.0); Prothrombin Time 10.6 Seconds (9.0-12.0)
[2021-11-25 11:30] LABS: Troponin I < 0.03 ng/ml (0-0.04)
--- NOTE | 2021-11-25 11:56 | XRay Report ---
XR chest 1V portable HISTORY: Altered mental status. Stroke Like Symptoms COMPARISON: Chest 11/23/2021. FINDINGS: The lungs are clear. Cardiac silhouette is normal in size. No pleural effusions. No pneumot horax. IMPRESSION: No acute process. ACT 112: Negative or not required by law. Electronically signed by: Alonzo Graham M.D. 11/25/2021 11:55 AM
[2021-11-25 12:04] LABS: Alanine Aminotransferase 36 U/L (7-52); Albumin Globulin Ratio 1.6 (0.9-2); Albumin Level 4.3 gm/dl (3.4-5.0); Alkaline Phosphatase 55 U/L (34-104); Anion Gap 11 (3-11); Aspartate Aminotransferase 16 U/L (13-39); BUN Creatinine Ratio 14.2 (10-20); Bilirubin,Total 0.5 mg/dl (0.2-1.0); Blood Urea Nitrogen 18 mg/dl (6-23); Calcium 9.4 mg/dl (8.5-10.1); Carbon Dioxide 24 mmol/L (21-32); Chloride 103 mmol/L (98-107); Creatinine Clr Calc Pharmacy 78.8 ml/min; Est GFR (African American) 75.3 ml/min; Globulin 2.7 gm/dl (2.5-4.0); Glucose 107 mg/dl (70-99(Fasting)); Magnesium 2.2 mg/dl (1.7-2.4); Potassium 3.5 mmol/L (3.5-5.1); Sodium 138 mmol/L (136-145)
[2021-11-25] MEDS ORDERED: OPTIRAY 320 125ml IV ONE (12:29)
--- NOTE | 2021-11-25 12:47 | CT Scan Report ---
HEAD CT NONCONTRAST CT DOSE: HISTORY: Altered mental status. Stroke Like Symptoms TECHNIQUE: Multiaxial CT images of the head were performed without the use of intravenous contrast. A utomated exposure control was utilized for this study. A dose lowering technique was utilized adheri ng to the principles of ALARA. Comparison: Head CT 11/11/2017. Findings: The paranasal sinuses and mastoid air cells are clear. The calvarium and skull base are int act. The ventricles and sulci are within normal limits. There is no mass, hematoma, midline shift, or acute infarct. Impression: No acute intracranial abnormality. ACT 112: Negative or not required by law. Electronically signed by: Alonzo Graham M.D. 11/25/2021 12:46 PM
--- NOTE | 2021-11-25 12:54 | CT Scan Report ---
HEAD & NECK CTA HISTORY: Altered mental status Stroke Like Symptoms TECHNIQUE: Multiaxial CT images of the head were performed following the intravenous administration o f contrast to evaluate the major cerebral vessels. Multiaxial CT images of the neck were also perform ed following the intravenous administration of contrast to evaluate the major cervical vessels. Maxim um intensity projection images were also obtained. A dose lowering technique was utilized adhering to the principles of ALARA. COMPARISON: None. FINDINGS: There is no mass, hematoma, midline shift, or acute infarct. Visualized intracranial internal carotid arteries, distal vertebral arteries, and basilar artery are widely patent. There is no significant s tenosis, occlusion, or aneurysm seen within the bilateral ACAs, MCAs, or ping pong table assembler. The major dural venous sinuses are patent. Mild calcified plaque within the bilateral carotid bifurcations. The aortic arch and proximal great vessels are widely patent. There is no significant stenosis, occ lusion, or dissection identified within the bilateral common carotid, internal carotid, or vertebral arteries. A 9 mm left thyroid nodule. This does not meet CT criteria for follow-up. IMPRESSION: 1. No significant stenosis, occlusion, or aneurysm within the [place]. 2. No significant stenosis, occlusion, or dissection identified within the carotid or vertebral arter ies. ACT 112: Negative or not required by law. Electronically signed by: Alonzo Graham M.D. 11/25/2021 12:52 PM
--- NOTE | 2021-11-25 12:54 | CT Scan Report ---
HEAD & NECK CTA HISTORY: Altered mental status Stroke Like Symptoms TECHNIQUE: Multiaxial CT images of the head were performed following the intravenous administration o f contrast to evaluate the major cerebral vessels. Multiaxial CT images of the neck were also perform ed following the intravenous administration of contrast to evaluate the major cervical vessels. Maxim um intensity projection images were also obtained. A dose lowering technique was utilized adhering to the principles of ALARA. COMPARISON: None. FINDINGS: There is no mass, hematoma, midline shift, or acute infarct. Visualized intracranial internal carotid arteries, distal vertebral arteries, and basilar artery are widely patent. There is no significant s tenosis, occlusion, or aneurysm seen within the bilateral ACAs, MCAs, or permaculture designer. The major dural venous sinuses are patent. Mild calcified plaque within the bilateral carotid bifurcations. The aortic arch and proximal great vessels are widely patent. There is no significant stenosis, occ lusion, or dissection identified within the bilateral common carotid, internal carotid, or vertebral arteries. A 9 mm left thyroid nodule. This does not meet CT criteria for follow-up. IMPRESSION: 1. No significant stenosis, occlusion, or aneurysm within [place]. 2. No significant stenosis, occlusion, or dissection identified within the carotid or vertebral arter ies. ACT 112: Negative or not required by law. Electronically signed by: Alonzo Graham M.D. 11/25/2021 12:52 PM
[2021-11-25] MEDS ORDERED: diphenhydrAMINE Capsule 25 MG CAP PO PRN (15:48)
[2021-11-25] MEDS ORDERED: ONDANSETRON INJ 2 MG/ML 2 ML VIAL IV PRN (15:48)
[2021-11-25] MEDS ORDERED: ACETAMINOPHEN CAFFEINE PO PRN (15:48)
[2021-11-25] MEDS ORDERED: ALBUT/IPRATROP 3MG/0.5MG NEB 3 ML VIAL INH PRN (15:48)
[2021-11-25] MEDS ORDERED: SODIUM CHLORIDE 0.9% 1000ML 1,000 ML IV SCH (15:48)
[2021-11-25] MEDS ORDERED: PHARMACIST DISCHARGE MED REC CONSULT PRN (15:48)
[2021-11-25] MEDS ORDERED: PROCHLORPERAZINE MALEATE 5 MG TAB PO PRN (15:48)
--- NOTE | 2021-11-25 16:19 | History and Physical Report ---
DATE OF ADMISSION: 11/25/2021. CHIEF COMPLAINT: Stroke-like symptoms and high blood pressure and chest discomfort. HISTORY OF PRESENT ILLNESS: This is a 51-year-old male with a past medical history significant for hereditary hemochromatosis, hyperlipidemia, intermittent asthma, hypertension, left ventricular hypertrophy, GERD, nonalcoholic fatty liver disease, chronic cholecystitis, cholelithiasis, history of impacted gallstone, history of noise-induced hearing loss, history of ventral hernia, history of COVID in 08/2021, history of questionable angioedema. The patient is in the ER several times recently as he is not tolerating Blood pressure meds,, comes today because of stroke-like symptoms and chest discomfort and high blood pressure. Patient was diagnosed with possible epiglottitis versus angioedema in end of August. He followed up with ENT and status post laryngoscopy two times which was negative. He also was seen by patient scheduling manager, thought to be from lisinopril, but his hereditary angioedema studies seems unremarkable. Was advised to stop lisinopril, he continued to take it until last 1 week ago .He did not tolerate hydrochlorothiazide, Coreg, Toprol, amlodipine and hydralazine and he says after taking these medications, he is feeling some discomfort, feeling swelling in the face and throat and also burning sensation in all his body and tingling and he stopped all those medications. He finished the prednisone tapering course. Saw PCP yesterday, Family doctor told to hold the statins for next 3 months or until his allergy reaction gets resolved. Question of lisinopril causing most of the problem, anyways he stopped taking lisinopril just 1 week ago. He was prescribed spironolactone yesterday. He thinks this could be causing some scratchiness in his throat. Today, he was found to have some mild left facial droop seen by his and his blood pressure running high and burning sensation in the chest, radiating to his arms when his called EMS and brought in here. By the time he was here, his symptoms resolved. Imaging studies are unremarkable, CT of the chest, CTA of the head and neck ok. Talking fine. Somewhat upset, we could not figure out what is going on with him. Denies any headache. No blurred vision. Currently, has some cough, seems afebrile. Denies any shortness of breath, no nausea, no abdominal pain, no diarrhea or constipation. Resting comfortably and hemodynamically stable. ALLERGIES: ATORVASTATIN, CETIRIZINE, SIMVASTATIN, ZOFRAN, BACTRIM, AUGMENTIN, HYDROCHLOROTHIAZIDE. PAST MEDICAL HISTORY: As mentioned above. PAST SURGICAL HISTORY: Colonoscopy, dental surgery, EGD, hemorrhoidectomy, laparoscopic cholecystectomy. MEDICATIONS: The patient is on acetaminophen/caffeine 2 tablets p.o. q. 4 hours p.r.n., ascorbic acid 500 mg p.o. a.m., aspirin 81 mg, Benadryl 25 mg p.o. q. 6 hours p.r.n., Duonebs 3 mL inhalation q.i.d. p.r.n., omeprazole 40 mg p.o. a.m., prochlorperazine 5 mg q. 8 hours p.r.n., spironolactone 25 mg p.o. a.m. FAMILY HISTORY: Significant for mother has allergies, arthritis, asthma. Father had prostate cancer, eye problems, mother has hypertension, aunt has cancer. SOCIAL HISTORY: , former smoker, quit in 2019. Smoked 1 pack a day for 20 years. No alcohol, no drug use. REVIEW OF SYSTEMS: As per HPI. Rest of the review of systems is negative. PHYSICAL EXAMINATION: GENERAL: The patient is obese, not in acute distress. VITAL SIGNS: Temperature 36.0, pulse 77, respiratory rate 20, blood pressure 153/106, oxygen 98% on room air. HEENT: Pupils equal, round and reactive to light. Oral mucosa moist. NECK: No JVD, no neck masses. CARDIOVASCULAR: S1 and S2 heard. Regular rate and rhythm. No murmur, no gallop. RESPIRATORY SYSTEM: Normal AP diameter. No accessory muscle use. No wheezing, no crackles. ABDOMEN: Soft, bowel sounds present, nontender, no distention. CENTRAL NERVOUS SYSTEM: Cranial nerves II-XII grossly intact, nonfocal. Power 5/5 in all extremities. Sensation intact. Position sense intact. Coordination of movements normal. EXTREMITIES: No edema, no erythema. LABORATORY DATA: WBC 12.7, hemoglobin 16.1, hematocrit 45.9, platelets 302, PT 10.6, INR 1, APTT 23.7. Sodium 138, potassium 3.5, chloride 103, bicarbonate 24, BUN 18, creatinine 1.2, serum glucose 107, calcium 9.4, magnesium 2.2, total bilirubin 0.5, AST 16, ALT 36, alkaline phosphatase 55. Troponin I less than 0.03. SARS-CoV-2 negative. IMAGING DATA: CT of the head and neck unremarkable. CTA of the head was unremarkable. Chest x-ray unremarkable. EKG: Normal sinus rhythm, nonspecific ST-T abnormality at the rate of 70, no significant change was found. ASSESSMENT AND PLAN: This 51-year-old male presents with stroke-like symptoms , chest discomfort 1. Left facial droop. resolved.Initial imaging studies are unremarkable. We will continue with aspirin. Patient could not tolerate statins. We will follow the MRI scan of the head, monitor in tele floor. Speech evaluation, neuro consult in a.m. We will keep n.p.o. until evaluated by speech. 2. Chest discomfort. Initial workup was negative. Follow serial enzymes, echocardiogram. Recent stress test in 06/2021 was unremarkable. We will consult Cardiology in the a.m. 3. Hypertension. The patient was not tolerating the medications, he stopped the lisinopril about a week ago, because in August had angioedema. Followed by Allergy and ENT. Laryngoscopy x2 negative. Wagon Driver Salesperson advised to stop lisinopril, though his hereditary angioedema studies were negative, but patient continued to take until about a week ago. His family doctor started spironolactone yesterday, which we will continue. We will monitor the blood pressure. Await Cardiology input for adjustment of blood pressure medications as patient has allergies to multiple medications.If need will place him on nitrates for now. 4. Angioedema, finished prednisone course. Continue his Benadryl p.r.n. Will watch closely for symptoms. The symptoms could be from the lisinopril which he took until a week ago. 5. Hyperlipidemia, Not on statin currently. Follow up with PCP. 6. Gastroesophageal reflux disease. Continue omeprazole. 7. History of asthma . duonebs prn 8. Deep venous thrombosis prophylaxis: Sequential compression devices for now. DISPOSITION: Closely monitor in the tele floor. Observation in tele floor. Level 1 full code. Expect to discharge home with family doctor. Job ID: [id number] [facility]
[2021-11-25] MEDS ORDERED: LORazepam 2 MG/1 ML VIAL IV STA (16:35)
--- NOTE | 2021-11-25 17:18 | XRay Report ---
ORBIT RADIOGRAPHS 3 VIEWS HISTORY: pre-MRI screening. COMPARISON: None. FINDINGS: There are no radiopaque foreign bodies identified within the orbits. IMPRESSION: No radiopaque foreign bodies identified within the orbits. ACT 112: Negative or not required by law. Electronically signed by: Alonzo Graham M.D. 11/25/2021 5:16 PM
[2021-11-25] MEDS ORDERED: GADOBUTROL 10ML VIAL IV ONE (17:51)
--- NOTE | 2021-11-25 18:14 | Magnetic Resonance Report ---
Brain MRI WITH AND WITHOUT CONTRAST HISTORY: stroke like symptoms, transient left facial droop TECHNIQUE: Multiplanar multisequence MRI of the brain was performed both before and after the intrave nous administration of contrast. COMPARISON STUDY: Head CT 11/25/2021. FINDINGS: There are no areas of restricted diffusion to suggest acute infarction. The midline structu res are intact. Mild mucosal thickening within the maxillary sinuses. No fluid levels within the para nasal sinuses. The orbits are unremarkable. There are few scattered punctate foci of T2 hyperintensit y seen within the white matter of the supratentorial brain. These are nonspecific but favor mild micr ovascular ischemic changes. The mastoid air cells are clear. The ventricles and sulci are within norm al limits for age. There is no mass, hematoma, midline shift. The major vascular flow-voids at the sk ull base are well maintained. Postcontrast sequences show no areas of abnormal enhancement. IMPRESSION: No acute intracranial abnormality. ACT 112: Negative or not required by law. Electronically signed by: Alonzo Graham M.D. 11/25/2021 6:13 PM
--- NOTE | 2021-11-25 18:22 | Ultrasound Report ---
THYROID ULTRASOUND HISTORY: Follow-up thyroid nodule COMPARISON: Neck CTA 11/25/2021. FINDINGS: Right lobe: 39 x 15 x 20 mm. No nodules. Left lobe: 41 x 17 x 19 mm. There is a 1.1 cm predominant cystic nodule within the lower pole. Isthmus: 4 mm in thickness. There is a 6 mm heterogeneous nodule along the right side of the isthmus. IMPRESSION: Small thyroid nodules as described above. These do not meet sonographic criteria for biopsy. ACT 112: Negative or not required by law. Electronically signed by: Alonzo Graham M.D. 11/25/2021 6:21 PM
--- NOTE | 2021-11-25 19:34 | Hospitalist Progress Note ---
Date of Service November 25, 2021 Assessment & Plan Admission and Anticipated Discharge Date Admission Date: November 25, 2021 Subjective Placed on nitro paste for HTN. Thyroid scan small thyroid nodules. Needs mary kate valle. Results & Data Results & Data ([facility]) Vital Signs (Past 12 Hours) Vital Signs Temp Pulse Pulse Resp BP BP Pulse Ox 11/25/21 16:57 78 11/25/21 15:51 36.5 C 81 18 165/116 H 97 11/25/21 15:16 71 14 168/115 H 97 11/25/21 15:00 168/115 H 11/25/21 14:46 160/110 H 11/25/21 14:30 75 12 97 11/25/21 14:20 73 19 96 11/25/21 14:15 158/109 H 11/25/21 14:00 153/106 H 11/25/21 13:45 151/92 H 11/25/21 13:30 138/101 H 11/25/21 13:15 147/100 H 11/25/21 13:00 77 20 131/106 H 153/106 H 98 11/25/21 12:45 135/97 11/25/21 12:30 157/101 H 11/25/21 12:00 143/101 H 11/25/21 11:45 78 16 157/95 H 96 11/25/21 11:30 146/92 H 11/25/21 11:17 71 18 144/107 H 96 11/25/21 11:15 81 16 144/107 H 96 11/25/21 11:00 158/112 H 11/25/21 10:57 164/109 H 11/25/21 10:42 36.9 C 71 20 176/113 H 97
[2021-11-25] MEDS: NITROGLYCERIN 2% OINTMENT 30GM TUBE EXT SCH (21:25)
[2021-11-25] MEDS: diphenhydrAMINE Capsule 25 MG CAP PO PRN (21:43)
[2021-11-26] MEDS: NITROGLYCERIN 2% OINTMENT 30GM TUBE EXT SCH ×5 (01:42→23:24)
[2021-11-26] MEDS: ACETAMINOPHEN 325 MG TAB PO PRN ×4 (04:22→21:08)
[2021-11-26] MEDS ORDERED: DICLOFENAC SOD 1% GEL 100 GM TUBE EXT PRN (04:47)
[2021-11-26 06:35] LABS: Basophils # (auto) 0.01 K/uL (0-0.2); Basophils % (auto) 0.1 %; Eosinophils % (auto) 0.7 %; Hematocrit (blood only) 41.7 % (42-52); Hemoglobin 14.7 g/dL (14.0-18.0); Immature Granulocytes # (auto) 0.07 K/uL (0.00-0.02); Immature Granulocytes % (auto) 0.5 %; Lymphocytes # (auto) 4.03 K/uL (1.2-3.4); Mean Corpuscular Hemoglobin 30.4 pg (25-34); Mean Corpuscular Hgb Conc 35.3 g/dL (32-36); Mean Corpuscular Volume 86.3 fL (80-100); Mean Platelet Volume 9.8 fL (7.4-10.4); Monocytes # (auto) 1.38 K/uL (0.11-0.59); Monocytes % (auto) 10.3 %; Neutrophils # (auto) 7.83 K/uL (1.4-6.5); Neutrophils % (auto) 58.4 %; Platelet Count 309 K/uL (130-400); RDW Coefficient of Variation 13.3 % (11.5-14.5); RDW Standard Deviation 42.4 fL (36.4-46.3); Red Blood Count 4.83 M/uL (4.7-6.1); White Blood Count 13.42 K/uL (4.8-10.8)
[2021-11-26 07:15] LABS: Troponin I < 0.03 ng/ml (0-0.04)
[2021-11-26 07:17] LABS: Anion Gap 8 (3-11); BUN Creatinine Ratio 17.5 (10-20); Blood Urea Nitrogen 21 mg/dl (6-23); Calcium 7.9 mg/dl (8.5-10.1); Carbon Dioxide 25 mmol/L (21-32); Chloride 103 mmol/L (98-107); Chol HDL Ratio 4.5 (0-5); Cholesterol 165 mg/dl (0-200); Creatinine Clr Calc Pharmacy 82.4 ml/min; Est GFR (African American) 80.7 ml/min; Est GFR (Non-African American) 69.6 ml/min; Glucose 86 mg/dl (70-99(Fasting)); HDL Cholesterol 37 mg/dl; LDL Cholesterol Calculated 86 mg/dl; Potassium 3.5 mmol/L (3.5-5.1); Sodium 136 mmol/L (136-145); Triglycerides 208 mg/dl (0-150); VLDL Cholesterol 42 mg/dl (0-30)
[2021-11-26] MEDS: ASPIRIN 81 MG ECTAB PO SCH (08:25)
[2021-11-26] MEDS: ASCORBIC ACID 500 MG TAB PO SCH (08:25)
[2021-11-26] MEDS ORDERED: PANTOprazole 40 MG TAB PO SCH (09:00)
[2021-11-26] MEDS ORDERED: SPIRONOLACTONE 25 MG TAB PO SCH (09:00)
--- NOTE | 2021-11-26 09:19 | Electrocardiogram Report ---
Test Reason : Blood Pressure : / mmHG Vent. Rate : 077 BPM Atrial Rate : 077 BPM P-R Int : 136 ms QRS Dur : 092 ms QT Int : 414 ms P-R-T Axes : 057 005 -33 degrees QTc Int : 468 ms Normal sinus rhythm Normal ECG When compared with ECG of 25-NOV-2021 10:33, No significant change was found Confirmed by Brennan Gaona ([id number]) on 11/26/2021 9:18:45 AM Referred By: Bernadine Marmolejo Confirmed By:Brennan Gaona
--- NOTE | 2021-11-26 09:19 | Electrocardiogram Report ---
Test Reason : Blood Pressure : / mmHG Vent. Rate : 070 BPM Atrial Rate : 070 BPM P-R Int : 132 ms QRS Dur : 088 ms QT Int : 390 ms P-R-T Axes : 059 012 -13 degrees QTc Int : 421 ms Normal sinus rhythm Normal ECG When compared with ECG of 23-NOV-2021 22:44, No significant change was found Confirmed by Brennan Gaona ([id number]) on 11/26/2021 9:18:37 AM Referred By: Bernadine Marmolejo Confirmed By:Brennan Gaona
--- NOTE | 2021-11-26 12:09 | Cardiology Consultation ---
Date of Consultation November 26, 2021 Assessment & Plan (1) Hypertension: (2) Angioedema: (3) Pharyngeal edema: (4) Numbness and tingling: (5) Allergic reaction: This is an unusual case. The only thing that I could recommend is that we try some antihypertensives while he is in the hospital to see if he has any ongoing reactions. In addition to the Aldactone I am going to start him on verapamil 40 mg 3 times daily. I would leave him on telemetry. Let us see how he does with the start of this new medication. History of Present Illness Attending Physician: Tommie Painter MD History of Present Illness This is a very unusual complicated case. The patient is a 51-year-old with a history of hypertension for which he took lisinopril for years. His mother got a Covid infection. He was not vaccinated. He decided to use chemical antiseptics such as Lysol which he blew around his home with a fan. He developed a sore throat and respiratory problems and when he presented the hospital he tested positive for Covid. Following the above, he has had continued episodes swelling of his throat but also paresthesias of his arms, abdomen, chest and face to what he feels is related to various antihypertensive medications which have been tried following the above. He has been seen by ENT as well as allergy who recommended that he stop the lisinopril with the thought that he was having angioedema from the YAMIL inhibitor. He was seen at our clinic by Ms.. Coronel at which time he refused to stop the lisinopril for his hypertension and ended up in the emergency department again. This time the lisinopril was discontinued and he was started on hydralazine for which he developed paresthesias and stopped the medication. He has been admitted again with what he describes as paresthesias of his face. An extensive work-up including an MRI of his brain failed to show any evidence of a CVA. He is markedly hypertensive in the hospital. His only antihypertensive currently is Aldactone. Allergies Allergy/AdvReac Type Severity Reaction Status Date / Time atorvastatin [From Lipitor] Allergy Severe ELEVATED Verified 11/25/21 12:55 B/P, DRY COUGH, NAUSEA cetirizine [From Zyrtec] Allergy Severe THROAT Verified 11/25/21 12:55 SWELLS simvastatin Allergy Intermediate Swelling Verified 11/25/21 12:55 of Lip/Tongue/Throat verapamil Allergy Intermediate transient Verified 11/26/21 23:37 throat closure, cp as per px ondansetron Allergy Mild RASH Verified 11/25/21 12:55 sulfamethoxazole [Bactrim] Allergy Mild chest hurt Verified 11/25/21 12:55 trimethoprim [Bactrim] Allergy Mild chest hurt Verified 11/25/21 12:55 amoxicillin [From Augmentin] AdvReac Severe Severe Verified 11/25/21 12:55 bloating and abdominal pain clavulanic acid AdvReac Severe Severe Verified 11/25/21 12:55 [From Augmentin] bloating and abdominal pain hydrochlorothiazide AdvReac Intermediate muscle Verified 11/25/21 12:55 pain, confusion, fatigue amlodipine AdvReac Gastrointestinal Verified 11/25/21 17:09 Upset carvedilol [From Coreg] AdvReac Gastrointestinal Verified 11/25/21 17:09 Upset hydralazine AdvReac Chest Pain Verified 11/25/21 17:12 metoprolol AdvReac Gastrointestinal Verified 11/25/21 17:10 Upset Home Medications Medication Instructions Recorded Confirmed Type ipratropium 0.5 mg-albuterol 3 mg 3 ml INHALATION QID PRN 12/02/20 11/25/21 History (2.5 mg base)/3 mL nebulization soln omeprazole 40 mg capsule,delayed 40 mg PO QAM 12/02/20 11/25/21 History release ascorbic acid (vitamin C) 500 mg 500 mg PO QAM 06/21/21 11/25/21 History chewable tablet prochlorperazine maleate 5 mg 5 mg PO Q8 PRN 06/21/21 11/25/21 History tablet aspirin 81 mg tablet,delayed 81 mg PO DIRECTED PRN 10/20/21 11/25/21 History release acetaminophen-caffeine 500 mg-65 2 tab PO Q4H PRN 11/25/21 11/25/21 History mg tablet diphenhydramine HCl 25 mg capsule 25 mg PO Q6H PRN 11/25/21 11/25/21 History (Benadryl) prednisone 20 mg tablet 20 mg PO QAM 11/25/21 11/25/21 History spironolactone 25 mg tablet 25 mg PO QAM 11/25/21 11/25/21 History Patient History Medical History Dyslipidemia Esophageal reflux Hypertension Surgical History H/O colonoscopy History of cholecystectomy Family History Mother Hypertension Other Cancer Denies family history of Heart disease Stroke Social History Smoking Status: Former smoker Tobacco Type: Smokeless Tobacco (Dip or Chew) Do You Dip or Chew Tobacco: Yes; Hx Alcohol Use: Yes Alcohol type: beer Hx Substance Use: No Preferred Language: Barbadian Communication Ability: Effective Buff Wheel Fabricator Required: No Beliefs That Will Affect Care: None marital status: Current Living Situation: Spouse, Parent and Family Current Living Situation Comment: Lives with mother, , and two sons How many Children do You have: 2 Feels Safe at Home: Yes Safety Concerns: Feels Safe At This Time Assistive Devices: None Review of Systems Review of Systems: Review of Systems: See HPI for pertinent positives. All other 10 point review of systems are negative. Physical Exam Physical Exam: General: no acute distress and stated age Head: normocephalic, no masses, lesions, tenderness or abnormalities Eyes: conjunctiva are pink and non-injected, sclera clear Neck: supple, no adenopathy, no bruits, normal jugular venous pulse, no hepatojugular reflux Chest: normal shape and normal respiratory effort Lungs: clear to auscultation and percussion Cardiac Exam: - regular rate & rhythm, no murmurs gallops or rubs - normal S1, normal S2 Pulses: 2(+) throughout Abdomen: abdomen soft, non-tender, no abnormal masses and no hepatosplenomegaly Musculoskeletal: no gait disturbance, no joint inflammation, no deforming arthritis Extremities: no edema and no cyanosis Neuro: grossly normal exam Results & Data ([facility]) Vital Signs (Past 12 Hours) Vital Signs Temp Pulse Pulse Resp BP Pulse Ox 11/26/21 11:16 60 11/26/21 11:14 36.7 C 73 18 161/109 H 96 11/26/21 08:30 36.6 C 75 18 155/97 H 95 11/26/21 04:56 36.6 C 79 16 141/72 H 94 11/26/21 00:10 68 Laboratory Results Laboratory Results - last 24 hr 11/25/21 11/25/21 11/25/21 10:46 18:41 Unknown WBC RBC Hgb Hct MCV MCH MCHC RDW Std Deviation RDW Coeff of Paola Plt Count MPV Immature Gran % (Auto) Neut % (Auto) Lymph % (Auto) [place] % (Auto) Eos % (Auto) Baso % (Auto) Neut # (Auto) Lymph # (Auto) [place] # (Auto) Eos # (Auto) Baso # (Auto) Immature Gran # (Auto) Sodium 138 Potassium 3.5 Chloride 103 Carbon Dioxide 24 Anion Gap 11 BUN 18 Creatinine 1.27 Est Cr Clr Drug Dosing 78.8 Est GFR ( Amer) 75.3 Est GFR (Non-Af Amer) 65.0 BUN/Creatinine Ratio 14.2 Glucose 107 H Estimat Average Glucose Hemoglobin A1c Calcium 9.4 Magnesium 2.2 Total Bilirubin 0.5 AST 16 ALT 36 Alkaline Phosphatase 55 Troponin I < 0.03 < 0.03 Total Protein 7.0 Albumin 4.3 Globulin 2.7 Albumin/Globulin Ratio 1.6 Triglycerides Cholesterol LDL Cholesterol, Calc VLDL Cholesterol, Calc HDL Cholesterol Cholesterol/HDL Ratio SARS-CoV-2, RNA, NAAT NEGATIVE 11/26/21 11/26/21 11/26/21 05:57 05:57 05:57 WBC 13.42 H RBC 4.83 Hgb 14.7 Hct 41.7 L MCV 86.3 MCH 30.4 MCHC 35.3 RDW Std Deviation 42.4 RDW Coeff of [place]ola 13.3 Plt Count 309 MPV 9.8 Immature Gran % (Auto) 0.5 Neut % (Auto) 58.4 Lymph % (Auto) 30.0 [place] % (Auto) 10.3 Eos % (Auto) 0.7 Baso % (Auto) 0.1 Neut # (Auto) 7.83 H Lymph # (Auto) 4.03 H [place] # (Auto) 1.38 H Eos # (Auto) 0.10 Baso # (Auto) 0.01 Immature Gran # (Auto) 0.07 H Sodium 136 Potassium 3.5 Chloride 103 Carbon Dioxide 25 Anion Gap 8 BUN 21 Creatinine 1.20 Est Cr Clr Drug Dosing 82.4 Est GFR ( Amer) 80.7 Est GFR (Non-Af Amer) 69.6 BUN/Creatinine Ratio 17.5 Glucose 86 Estimat Average Glucose Pending Hemoglobin A1c Pending Calcium 7.9 L Magnesium Total Bilirubin AST ALT Alkaline Phosphatase Troponin I < 0.03 Total Protein Albumin Globulin Albumin/Globulin Ratio Triglycerides 208 H Cholesterol 165 LDL Cholesterol, Calc 86 VLDL Cholesterol, Calc 42 H HDL Cholesterol 37 Cholesterol/HDL Ratio 4.5 SARS-CoV-2, RNA, NAAT Medications Administered Current Inpatient Medications Acetaminophen (Acetaminophen 325 Mg Tab) 650 mg PO Q4H PRN PRN Reason: Pain or Fever Stop: 12/25/21 15:47 Last Admin: 11/26/21 08:30 Dose: 650 mg Documented by: Albuterol (Albut/Ipratrop 3mg/0.5mg Neb 3 Ml Vial) 3 ml INH QIDR PRN; Protocol PRN Reason: Shortness Of Breath Or Wheezing Stop: 12/25/21 15:47 Ascorbic Acid (Ascorbic Acid 500 Mg Tab) [facility] Stop: 12/26/21 08:59 Last Admin: 11/26/21 08:25 Dose: 500 mg Documented by: Aspirin (Aspirin 81 Mg Ectab) [facility] [place] Stop: 12/26/21 08:59 Last Admin: 11/26/21 08:25 Dose: 81 mg Documented by: Diphenhydramine HCl (Diphenhydramine Capsule 25 Mg Cap) 25 mg PO Q6H PRN PRN Reason: Allergic Reaction Stop: 12/25/21 15:47 Last Admin: 11/25/21 21:43 Dose: 25 mg Documented by: Miscellaneous Information (Pharmacist Discharge Med Rec Consult) 1 ea N/A UD PRN PRN Reason: Consult Stop: 12/25/21 15:47 Nitroglycerin (Nitroglycerin 2% Ointment 30gm Tube) 0.5 inch EXT Q6H KIM Stop: 12/25/21 19:44 Last Admin: 11/26/21 08:30 Dose: 0.5 inch Documented by: Ondansetron HCl (Ondansetron Inj 2 Mg/Ml 2 Ml Vial) 4 mg IV Q6H PRN PRN Reason: Nausea Stop: 12/25/21 15:47 Pantoprazole Sodium (Pantoprazole 40 Mg Tab) 40 mg PO QAM [facility] Stop: 12/26/21 08:59 Last Admin: 11/26/21 08:25 Dose: 40 mg Documented by: Spironolactone (Spironolactone 25 Mg Tab) 25 mg PO QAM [facility] Stop: 12/26/21 08:59 Last Admin: 11/26/21 08:25 Dose: 25 mg Documented by: Verapamil HCl (Verapamil Hcl 40 Mg Tab) 40 mg PO TID [facility] Stop: 12/26/21 13:59 (1) Allergic reaction Encounter type: initial encounter Qualified Code(s): T78.40XA - Allergy, unspecified, initial encounter (2) Hypertension Hypertension type: primary hypertension Qualified Code(s): I10 - Essential (primary) hypertension
--- NOTE | 2021-11-26 13:51 | Hospitalist Progress Note ---
Date of Service November 26, 2021 Assessment & Plan (1) Hypertension: (2) Sensation of swollen throat: Plan: 51-year-old male with PMH of hereditary hemochromatosis, questionable angioedema, HTN, left ventricular hypertrophy, GERD, intermittent asthma, HLD, NAFLD, chronic cholecystitis, cholelithiasis, impacted gallstone, noise-induced hearing loss, ventral hernia, Covid in 08/2021 presented to our ED 11/25 with complaint of not tolerating various blood pressure medications [has visited ED several times for the same], and this time also developed strokelike symptoms, chest discomfort and high blood pressure. Patient was diagnosed with possible epiglottitis versus angioedema in end of August 2021 s/p laryngoscopy 2 times by ENT which were negative. He was also evaluated by interventionist, thought to be from lisinopril, his hereditary angioedema study seems unremarkable. He was advised to stop lisinopril, he continued to take it until 1 week ago APPOINTMENT CLERK. #. Left facial droop #. Likely TIA Patient came in with complaint of mild left facial droop [seen by his and EMS] associated with high blood pressure at home and burning sensation in the chest radiating to his arms. By the time he reached ED, his facial droop has improved. Admitting CT head, CTA head and neck WNL. Admitting brain MRI: No acute intracranial abnormality. Continue with neurochecks, at bedside exam no facial droop appreciated Neurology consulted, await recommendation #. Chest discomfort #. Uncontrolled hypertension Patient has been tried on various blood pressure medication, has not tolerated HCTZ, Coreg, Toprol, amlodipine and hydralazine --> patient reports feeling of discomfort/swelling in the face and throat and burning/tingling sensation all over her body and stopped all those medications. Patient presented with burning sensation across the chest radiating to his arms associated with high blood pressure at home. Recent stress test in 06/2021 was unremarkable. Admitting troponin x3: Negative. Admitting EKG: NSR with no acute ST or T changes. 11/26 echo: EF 60 to 65%, mild concentric LVH, LV systolic function normal. No inter-atrial shunt. Cardiology on board, verapamil started, appreciate recommendations. Continue with telemetry. Continue with home spironolactone. Blood pressure still on the higher side. #. ? Angioedema Was diagnosed with possible epiglottitis versus angioedema at the end of August 2021 status post laryngoscopy 2 times by ENT which were negative. Patient was also evaluated by interventionist, hereditary angioedema study seems unremarkable. Patient was asked to stop lisinopril. Patient stopped lisinopril 1 week ago APPOINTMENT CLERK Patient recently finished prednisone course. Continue with Benadryl as needed. Patient still continues having scratchy/discomfort sensation in the throat On examination, no obvious swelling noted. Continue to monitor. #. Other chronic medical conditions: HLD, GERD, asthma, ongoing nicotine abuse Recent PCP visit, patient told to hold the statin for the next 3 months or until his allergic reaction gets resolved For his GERD, patient is on omeprazole daily and reports taking Tums. Will make PPI twice daily. Continue with/resume home medications as and when appropriate. Nicotine patch. #. DVT prophylaxis: SCDs for now Admission and Anticipated Discharge Date Admission Date: November 25, 2021 Subjective Patient seen and examined at bedside as a follow-up of left facial droop and uncontrolled hypertension/not tolerating a lot of medications and angioedema. Patient lying in bed, on room air, NAD, seemingly frustrated due to many medication switches in the recent past, no acute events overnight, not eating much, reported headache with a nicotine patch, also reports burning sensation across the chest, denies fever/chills/feeling of heart racing/belly pain/other review of symptoms. Physical Exam Physical Exam: GENERAL: Alert and oriented x3. NAD, on RA. HEENT: No pallor, no icterus. Pupils equal, round and reactive to light. Oral mucosa moist. NECK: No JVD, no neck masses. HEART: S1 and S2 heard. Regular rate and rhythm. No murmur, no gallop. RESPIRATORY SYSTEM: Normal AP diameter. No accessory muscle use. No wheezing, no crackles. ABDOMEN: Soft, bowel sounds present, nontender, no distention. CENTRAL NERVOUS SYSTEM: No facial droop. Speech is clear. Obeys simple commands. Moves extremities. EXTREMITIES: No edema, no erythema seen. Results & Data Results & Data ([facility]) Vital Signs (Past 12 Hours) Vital Signs Temp Pulse Pulse Resp BP Pulse Ox 11/26/21 11:16 60 11/26/21 11:14 36.7 C 73 18 161/109 H 96 11/26/21 08:30 36.6 C 75 18 155/97 H 95 11/26/21 04:56 36.6 C 79 16 141/72 H 94 (1) Hypertension Hypertension type: primary hypertension Qualified Code(s): I10 - Essential (primary) hypertension
[2021-11-26] MEDS: VERAPAMIL HCL 40 MG TAB PO SCH ×2 (14:13→21:03)
[2021-11-26] MEDS: diphenhydrAMINE Capsule 25 MG CAP PO PRN (16:44)
[2021-11-26] MEDS ORDERED: Nursing to Pharmacy Communication SCH (17:45)
[2021-11-26] MEDS ORDERED: LABETALOL HCL IV 5 MG/ML 20ML IV PRN (17:47)
[2021-11-26] MEDS ORDERED: methylPREDNISolone 40 MG in SYRINGE 0 ML IV PRN (17:50)
--- NOTE | 2021-11-26 18:15 | Consultation Report ---
NEUROLOGY CONSULTATION NOTE DATE OF SERVICE: 11/26/2021. CHIEF COMPLAINT: Chest pain. HISTORY OF PRESENT ILLNESS: A 51-year-old male with multiple medical comorbidities including hereditary hemochromatosis, hypertension, nonalcoholic fatty liver disease and history of noise-induced hearing loss, admitted yesterday for chest discomfort and high blood pressure. He was recently diagnosed with epiglottitis versus angioedema in 08/2021. He followed up with ENT status post laryngoscopy 2 times, which was negative. He was seen by an pattern drafter and thought to be from lisinopril, but his hereditary angioedema study seems unremarkable. He was advised to stop lisinopril. He was taking it up until 1 week ago. He did not tolerate hydrochlorothiazide, Coreg, Toprol, amlodipine or hydralazine as it was associated with discomfort and swelling in his face and throat. He did finish a prednisone taper. He did see his PCP yesterday and family doctor told him to hold any statin medications for the next 3 months until allergy reaction gets resolved. He was prescribed spironolactone yesterday. Yesterday he was found to have a left facial droop noted by his and his blood pressures were running high with some chest discomfort radiating into his arm. EMS was called. Symptoms resolved upon arrival to the Emergency Department. Imaging studies were negative. CT of the chest and CTA of the head and neck were normal. The patient was admitted to observation. Neurology was consulted for stroke assessment. ALLERGIES: ATORVASTATIN, CETIRIZINE, SIMVASTATIN, ZOFRAN, BACTRIM, AUGMENTIN, HYDROCHLOROTHIAZIDE. PAST MEDICAL HISTORY: Hereditary hemochromatosis, hyperlipidemia, asthma, hypertension, left ventricular hypertrophy, gastroesophageal reflux disease, nonalcoholic fatty liver disease, chronic cholecystitis, cholelithiasis, history of impacted gallstone, hearing loss, ventral hernia, history of COVID-19 in 08/2021. PAST SURGICAL HISTORY: Colonoscopy, dental surgery, EGD, hemorrhoidectomy, laparoscopic cholecystectomy, laryngoscopy. HOME MEDICATIONS: Vitamin C, aspirin, Benadryl, DuoNebs as needed, omeprazole, prochlorperazine as needed, spironolactone 25 mg in the morning. FAMILY HISTORY: Mother has allergies, arthritis and asthma. Father had prostate cancer. Mother had hypertension and had cancer. SOCIAL HISTORY: He is . He is a former smoker. He quit in 2019. Smoked 1 pack per day for 20 years. He denies any alcohol use. No illicit drug use. REVIEW OF SYSTEMS: Positive for chest discomfort, facial droop. All other review of systems was negative. PHYSICAL EXAMINATION: VITAL SIGNS: Blood pressure 161/109, pulse is 60, respiratory rate 18, temperature is 36.7 degrees Celsius, oxygen saturation is 96% on room air. GENERAL: The patient appears stated age, in no distress. HEENT: Head is normocephalic and atraumatic. Normal eyelids. Normal conjunctivae. NECK: Supple. LUNGS: Normal respiratory effort. CARDIAC: Pulses are intact. ABDOMEN: Nondistended. EXTREMITIES: Show no lower extremity edema. SKIN: No skin rash. PSYCHIATRIC: Normal mood. NEUROLOGIC: He is awake, alert, oriented to person, place, and time. Speech is clear. No aphasia. Eyes are midline. Pupils are symmetric. Tongue is midline. Facial sensation intact. Shoulder shrug is normal. Strength testing is 5/5 in the upper and lower extremities. He has no tremor or myoclonic jerks. No ataxia with [id number] testing. Sensation is intact to light touch. Muscle tone is normal. Negative Emily sign bilaterally. Toes are downgoing. DIAGNOSTIC TESTING AND LABORATORY VALUES: WBC 13.42, hemoglobin 14.7. Sodium 136, potassium 3.5, chloride 103, carbon dioxide 25, BUN 21, creatinine 1.2. Hemoglobin A1c is pending. Calcium 7.9. Thyroid ultrasound showed small thyroid nodule. MRI of the brain without contrast showed no acute intracranial abnormality. No evidence of acute infarct. Head and neck CTA showed no significant stenosis, occlusion or large vessel occlusion. Head CT noncontrast was normal. ASSESSMENT AND PLAN: A 51-year-old male with a history of hypertension and hereditary hemochromatosis, presenting with chest discomfort as well as reported intermittent facial droop. Hypertensive on arrival. Differential diagnosis certainly includes hypertensive urgency. MRI of the brain is reassuring and shows no evidence of acute infarct. Low suspicion for transient ischemic attack. We will continue home aspirin 81 mg daily. Recommend normotension. Otherwise, no additional neurological testing. He can follow up with his PCP after discharge. Job ID: [id number] [facility]
[2021-11-26] MEDS ORDERED: diphenhydrAMINE Capsule 25 MG CAP PO PRN (20:44)
[2021-11-26] MEDS: SPIRONOLACTONE 25 MG TAB PO SCH (21:08)
[2021-11-26] MEDS: CALCIUM CARBONATE 500 MG CHEWABLE TAB PO SCH (21:08)
[2021-11-26] MEDS: PANTOprazole 40 MG TAB PO SCH (21:09)
--- NOTE | 2021-11-26 23:39 | Communication Note ---
Date of Service: November 26, 2021 Made aware by RN of uncontrolled blood pressure. SBP 200s. Patient complaining of headache from Nitropaste as per RN. Patient refused verapamil Rx with note of throat closing up/chest pain symptoms after receiving earlier dose as per RN AP Uncontrolled hypertension Nitro headache Verapamil ADR Stop Nitropaste due to headache Labetalol 100 mg PO twice daily (Patient able to tolerate labetalol despite documented metoprolol and Coreg ADRs.) Will relay to AM provider.
[2021-11-27] MEDS ORDERED: LABETALOL HCL 100 MG TAB PO SCH ×3 (03:30→09:00)
[2021-11-27 06:43] LABS: Basophils # (auto) 0.02 K/uL (0-0.2); Basophils % (auto) 0.2 %; Eosinophils # (auto) 0.27 K/uL (0-0.5); Eosinophils % (auto) 2.1 %; Hematocrit (blood only) 44.5 % (42-52); Hemoglobin 15.5 g/dL (14.0-18.0); Immature Granulocytes # (auto) 0.09 K/uL (0.00-0.02); Immature Granulocytes % (auto) 0.7 %; Lymphocytes # (auto) 2.93 K/uL (1.2-3.4); Lymphocytes % (auto) 22.8 %; Mean Corpuscular Hemoglobin 29.9 pg (25-34); Mean Corpuscular Hgb Conc 34.8 g/dL (32-36); Mean Corpuscular Volume 85.7 fL (80-100); Mean Platelet Volume 9.8 fL (7.4-10.4); Monocytes # (auto) 1.11 K/uL (0.11-0.59); Monocytes % (auto) 8.6 %; Neutrophils # (auto) 8.43 K/uL (1.4-6.5); Neutrophils % (auto) 65.6 %; Platelet Count 284 K/uL (130-400); RDW Coefficient of Variation 13.1 % (11.5-14.5); RDW Standard Deviation 41.5 fL (36.4-46.3); Red Blood Count 5.19 M/uL (4.7-6.1); White Blood Count 12.85 K/uL (4.8-10.8)
[2021-11-27 07:07] LABS: BUN Creatinine Ratio 15.5 (10-20); Calcium 9.2 mg/dl (8.5-10.1); Creatinine Clr Calc Pharmacy 89.8 ml/min; Est GFR (African American) 89.6 ml/min; Est GFR (Non-African American) 77.3 ml/min; Magnesium 2.2 mg/dl (1.7-2.4); Potassium 3.6 mmol/L (3.5-5.1)
[2021-11-27] MEDS: SPIRONOLACTONE 25 MG TAB PO SCH ×2 (08:36→17:13)
[2021-11-27] MEDS: PANTOprazole 40 MG TAB PO SCH (08:36)
[2021-11-27] MEDS: CALCIUM CARBONATE 500 MG CHEWABLE TAB PO SCH (08:37)
[2021-11-27] MEDS: ASPIRIN 81 MG ECTAB PO SCH (08:38)
[2021-11-27] MEDS: ASCORBIC ACID 500 MG TAB PO SCH (08:38)
[2021-11-27 08:55] LABS: Estimated Average Glucose 120 mg/dl; Hemoglobin A1C 5.8 % (4.5-5.6)
--- NOTE | 2021-11-27 09:33 | Electrocardiogram Report ---
Test Reason : Blood Pressure : / mmHG Vent. Rate : 067 BPM Atrial Rate : 067 BPM P-R Int : 146 ms QRS Dur : 092 ms QT Int : 416 ms P-R-T Axes : 054 005 -09 degrees QTc Int : 439 ms Normal sinus rhythm Normal ECG When compared with ECG of 26-NOV-2021 04:32, No significant change was found Confirmed by Nitish Damian ([id number]) on 11/27/2021 9:32:35 AM Referred By: Bernadine Marmolejo Confirmed By:Nitish Damian
[2021-11-27] MEDS ORDERED: hydrOXYzine HCl 25 MG TAB PO PRN (09:57)
--- NOTE | 2021-11-27 10:50 | Cardiology Progress Note ---
Date of Service November 27, 2021 Assessment & Plan (1) Hypertension: (2) Angioedema: (3) Pharyngeal edema: (4) Numbness and tingling: (5) Allergic reaction: Plan: The patient did not tolerate verapamil. It appeared that he was in no acute distress but said it felt like his throat was closing and he refused to take it. He remains markedly hypertensive. He is tolerating labetalol and Aldactone. I am going to increase his labetalol dose to 200 mg twice daily. Admission and Anticipated Discharge Date Admission Date: November 25, 2021 Subjective The patient has no complaints today and appears to be comfortable. Review of Systems Review of Systems: Review of Systems: See HPI for pertinent positives. All other 10 point review of systems are negative. Physical Exam Physical Exam: General: no acute distress and stated age Head: normocephalic, no masses, lesions, tenderness or abnormalities Eyes: conjunctiva are pink and non-injected, sclera clear Neck: supple, no adenopathy, no bruits, normal jugular venous pulse, no hepatojugular reflux Chest: normal shape and normal respiratory effort Lungs: clear to auscultation and percussion Cardiac Exam: - regular rate & rhythm, no murmurs gallops or rubs - normal S1, normal S2 Pulses: 2(+) throughout Abdomen: abdomen soft, non-tender, no abnormal masses and no hepatosplenomegaly Musculoskeletal: no gait disturbance, no joint inflammation, no deforming arthritis Extremities: no edema and no cyanosis Neuro: grossly normal exam Results & Data ([facility]) Vital Signs (Past 12 Hours) Vital Signs Temp Pulse Pulse Pulse Resp BP BP 11/27/21 07:40 36.7 C 72 14 168/105 H 11/27/21 06:15 64 11/27/21 04:42 62 165/102 H 11/27/21 03:38 18 11/27/21 03:37 160/119 H 11/27/21 03:19 36.4 C L 77 36 H 172/124 H 11/27/21 01:59 36.7 C 72 18 161/97 H 11/27/21 01:29 58 L 11/26/21 23:42 168/108 H 11/26/21 23:22 36.8 C 87 16 201/130 H 188/129 H Pulse Ox 11/27/21 07:40 98 11/27/21 06:15 11/27/21 04:42 11/27/21 03:38 11/27/21 03:37 11/27/21 03:19 99 11/27/21 01:59 99 11/27/21 01:29 11/26/21 23:42 11/26/21 23:22 97 Laboratory Results Laboratory Results - last 24 hr 11/26/21 11/27/21 11/27/21 05:57 06:25 06:25 WBC 12.85 H RBC 5.19 Hgb 15.5 Hct 44.5 MCV 85.7 MCH 29.9 MCHC 34.8 RDW Std Deviation 41.5 RDW Coeff of [place] 13.1 Plt Count 284 MPV 9.8 Immature Gran % (Auto) 0.7 Neut % (Auto) 65.6 Lymph % (Auto) 22.8 [place] % (Auto) 8.6 Eos % (Auto) 2.1 Baso % (Auto) 0.2 Neut # (Auto) 8.43 H Lymph # (Auto) 2.93 [place] # (Auto) 1.11 H Eos # (Auto) 0.27 Baso # (Auto) 0.02 Immature Gran # (Auto) 0.09 H Sodium 137 Potassium 3.6 Chloride 102 Carbon Dioxide 28 Anion Gap 7 BUN 17 Creatinine 1.10 Est Cr Clr Drug Dosing 89.8 Est GFR ( Amer) 89.6 Est GFR (Non-Af Amer) 77.3 BUN/Creatinine Ratio 15.5 Glucose 87 Estimat Average Glucose 120 Hemoglobin A1c 5.8 H Calcium 9.2 Magnesium 2.2 Medications Administered Current Inpatient Medications Acetaminophen (Acetaminophen 325 Mg Tab) 650 mg PO Q4H PRN PRN Reason: Pain or Fever Stop: 12/25/21 15:47 Last Admin: 11/26/21 21:08 Dose: 650 mg Documented by: Albuterol (Albut/Ipratrop 3mg/0.5mg Neb 3 Ml Vial) 3 ml INH QIDR PRN; Protocol PRN Reason: Shortness Of Breath Or Wheezing Stop: 12/25/21 15:47 Last Admin: 11/27/21 03:38 Dose: 3 ml Documented by: Ascorbic Acid (Ascorbic Acid 500 Mg Tab) 500 mg PO QAM [facility] Stop: 12/26/21 08:59 Last Admin: 11/27/21 08:38 Dose: 500 mg Documented by: Aspirin (Aspirin 81 Mg Ectab) 81 mg PO QAM [facility] Stop: 12/26/21 08:59 Last Admin: 11/27/21 08:38 Dose: 81 mg Documented by: Calcium Carbonate (Calcium Carbonate 500 Mg Chewable Tab) 500 mg PO BID [facility] Stop: 12/26/21 20:59 Last Admin: 11/27/21 08:37 Dose: 500 mg Documented by: Diphenhydramine HCl (Diphenhydramine Capsule 25 Mg Cap) 25 mg PO Q4H PRN PRN Reason: Allergic Reaction Stop: 12/25/21 20:43 Hydroxyzine HCl (Hydroxyzine Hcl 25 Mg Tab) 25 mg PO Q6H PRN PRN Reason: anxiety Stop: 12/27/21 09:56 Methylprednisolone 40 mg/ (Syringe) 0.64 mls @ 1.5 mls/min IV ONE PRN PRN Reason: allergic reaction Labetalol HCl (Labetalol Hcl Iv 5 Mg/Ml 20ml) 5 mg IV Q4H PRN PRN Reason: hypertension Stop: 12/26/21 17:46 Last Admin: 11/26/21 23:27 Dose: 5 mg Documented by: Labetalol HCl (Labetalol Hcl 100 Mg Tab) 100 mg PO BID [facility] Stop: 12/27/21 08:59 Last Admin: 11/27/21 08:37 Dose: 100 mg Documented by: Miscellaneous Information (Pharmacist Discharge Med Rec Consult) 1 ea N/A UD PRN PRN Reason: Consult Stop: 12/25/21 15:47 Ondansetron HCl (Ondansetron Inj 2 Mg/Ml 2 Ml Vial) 4 mg IV Q6H PRN PRN Reason: Nausea Stop: 12/25/21 15:47 Pantoprazole Sodium (Pantoprazole 40 Mg Tab) 40 mg PO BID [facility] Stop: 12/26/21 20:59 Last Admin: 11/27/21 08:36 Dose: 40 mg Documented by: Spironolactone (Spironolactone 25 Mg Tab) 25 mg PO [id number] [facility] Stop: 12/26/21 20:59 Last Admin: 11/27/21 08:36 Dose: 25 mg Documented by: (1) Hypertension Hypertension type: primary hypertension Qualified Code(s): I10 - Essential (primary) hypertension (2) Allergic reaction Encounter type: initial encounter Qualified Code(s): T78.40XA - Allergy, unspecified, initial encounter
[2021-11-27] MEDS ORDERED: LABETALOL HCL 100 MG TAB PO ONE (10:55)
--- NOTE | 2021-11-27 12:59 | Psychiatric Consultation ---
Date of Consultation November 27, 2021 Impression / Recommendations Impression consult limited, patient denies all psychiatric symptoms (1) Sensation of swollen throat: certainly flushing and a rising sensation can be symptoms of atypical panic or hypertension, seems like some allergic component though antihistamines can also help if anxiety based I have seen similar compliants in other patients after COVID but literature is very limited on how to treat he hopes to avoid new medication at this time and I believe would be quite resistant to an empiric trial of an SSRI at this time. Psych History Chief Complaint "[]". History of Present Illness Case reviewed briefly with liaison and Dr. Painter. Patient had COVID in Aug and since then describes sensation of throat being swollen, sometimes occurs with flushing, benadryl sometimes help. Has had extensive ENT work up, steroid trial, some concern perhaps he was having med reaction ([place] inhibitor or statin). He scored 0 on JASSI-7 and was clear he did not want psychiatric evaluation or aftercare. He denies anxiety, reports any anxiety is after the subjective sensation of choking. Eating is fine. Past Psychiatric History Previous Psych History: none Allergies Allergy/AdvReac Type Severity Reaction Status Date / Time atorvastatin [From Lipitor] Allergy Severe ELEVATED Verified 11/25/21 12:55 B/P, DRY COUGH, NAUSEA cetirizine [From Zyrtec] Allergy Severe THROAT Verified 11/25/21 12:55 SWELLS simvastatin Allergy Intermediate Swelling Verified 11/25/21 12:55 of Lip/Tongue/Throat verapamil Allergy Intermediate transient Verified 11/26/21 23:37 throat closure, cp as per px ondansetron Allergy Mild RASH Verified 11/25/21 12:55 sulfamethoxazole [Bactrim] Allergy Mild chest hurt Verified 11/25/21 12:55 trimethoprim [Bactrim] Allergy Mild chest hurt Verified 11/25/21 12:55 amoxicillin [From Augmentin] AdvReac Severe Severe Verified 11/25/21 12:55 bloating and abdominal pain clavulanic acid AdvReac Severe Severe Verified 11/25/21 12:55 [From Augmentin] bloating and abdominal pain hydrochlorothiazide AdvReac Intermediate muscle Verified 11/25/21 12:55 pain, confusion, fatigue amlodipine AdvReac Gastrointestinal Verified 11/25/21 17:09 Upset carvedilol [From Coreg] AdvReac Gastrointestinal Verified 11/25/21 17:09 Upset hydralazine AdvReac Chest Pain Verified 11/25/21 17:12 metoprolol AdvReac Gastrointestinal Verified 11/25/21 17:10 Upset Home Medications Medication Instructions Recorded Confirmed Type ipratropium 0.5 mg-albuterol 3 mg 3 ml INHALATION QID PRN 12/02/20 11/25/21 History (2.5 mg base)/3 mL nebulization soln omeprazole 40 mg capsule,delayed 40 mg PO QAM 12/02/20 11/25/21 History release ascorbic acid (vitamin C) 500 mg 500 mg PO QAM 06/21/21 11/25/21 History chewable tablet prochlorperazine maleate 5 mg 5 mg PO Q8 PRN 06/21/21 11/25/21 History tablet aspirin 81 mg tablet,delayed 81 mg PO DIRECTED PRN 10/20/21 11/25/21 History release acetaminophen-caffeine 500 mg-65 2 tab PO Q4H PRN 11/25/21 11/25/21 History mg tablet diphenhydramine HCl 25 mg capsule 25 mg PO Q6H PRN 11/25/21 11/25/21 History (Benadryl) prednisone 20 mg tablet 20 mg PO QAM 11/25/21 11/25/21 History spironolactone 25 mg tablet 25 mg PO QAM 11/25/21 11/25/21 History Personal History Beliefs That Will Affect Care: None Patient History Medical History Dyslipidemia Esophageal reflux Hypertension Surgical History H/O colonoscopy History of cholecystectomy Family History Mother Hypertension Other Cancer Denies family history of Heart disease Stroke Social History Smoking Status: Former smoker Tobacco Type: Smokeless Tobacco (Dip or Chew) Do You Dip or Chew Tobacco: Yes; Hx Alcohol Use: Yes Alcohol type: beer Hx Substance Use: No Preferred Language: Faroese Communication Ability: Effective 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 Beliefs That Will Affect Care: None marital status: Current Living Situation: Spouse, Parent and Family Current Living Situation Comment: Lives with mother, , and two sons How many Children do You have: 2 Feels Safe at Home: Yes Safety Concerns: Feels Safe At This Time Assistive Devices: None Physical Exam Psychiatric: patient declined Vital Signs (Past 24 Hours): Last Vital Signs Temp 36.5 C 11/27/21 10:53 Pulse 79 11/27/21 10:53 Resp 16 11/27/21 10:53 BP 146/93 H 11/27/21 12:49 Pulse Ox 95 11/27/21 10:53 Results & Data ([facility]) Laboratory Results 11/27/21 11/27/21 11/26/21 Range/Units 06:25 06:25 05:57 WBC 12.85 H (4.8-10.8) K/uL RBC 5.19 (4.7-6.1) M/uL Hgb 15.5 (14.0-18.0) g/dL Hct 44.5 (42-52) % MCV 85.7 (80-100) fL MCH 29.9 (25-34) pg MCHC 34.8 (32-36) g/dL RDW Std Deviation 41.5 (36.4-46.3) fL RDW Coeff of [place] 13.1 (11.5-14.5) % Plt Count 284 (130-400) K/uL MPV 9.8 (7.4-10.4) fL Immature Gran % (Auto) 0.7 % Neut % (Auto) 65.6 % Lymph % (Auto) 22.8 % [place] % (Auto) 8.6 % Eos % (Auto) 2.1 % Baso % (Auto) 0.2 % Neut # (Auto) 8.43 H (1.4-6.5) K/uL Lymph # (Auto) 2.93 (1.2-3.4) K/uL [place] # (Auto) 1.11 H (0.11-0.59) K/uL Eos # (Auto) 0.27 (0-0.5) K/uL Baso # (Auto) 0.02 (0-0.2) K/uL Immature Gran # (Auto) 0.09 H (0.00-0.02) K/uL Sodium 137 (136-145) mmol/L Potassium 3.6 (3.5-5.1) mmol/L Chloride 102 (98-107) mmol/L Carbon Dioxide 28 (21-32) mmol/L Anion Gap 7 (3-11) BUN 17 (6-23) mg/dl Creatinine 1.10 (0.6-1.4) mg/dl Est Cr Clr Drug Dosing 89.8 ml/min Est GFR ( Amer) 89.6 ml/min Est GFR (Non-Af Amer) 77.3 ml/min BUN/Creatinine Ratio 15.5 (10-20) Glucose 87 (70-99(Fasting)) mg/dl Estimat Average Glucose 120 mg/dl Hemoglobin A1c 5.8 H (4.5-5.6) % Calcium 9.2 (8.5-10.1) mg/dl Magnesium 2.2 (1.7-2.4) mg/dl Medications Administered Acetaminophen (Acetaminophen 325 Mg Tab) 650 mg PO Q4H PRN PRN Reason: Pain or Fever Stop: 12/25/21 15:47 Last Admin: 11/26/21 21:08 Dose: 650 mg Documented by: [id number] Admin: 11/26/21 14:22 Dose: 650 mg Documented by: [id number] Admin: 11/26/21 08:30 Dose: 650 mg Documented by: [id number] Admin: 11/26/21 04:22 Dose: 650 mg Documented by: [id number] Albuterol (Albut/Ipratrop 3mg/0.5mg Neb 3 Ml Vial) 3 ml INH QIDR PRN; Protocol PRN Reason: Shortness Of Breath Or Wheezing Stop: 12/25/21 15:47 Last Admin: 11/27/21 03:38 Dose: 3 ml Documented by: [id number] Ascorbic Acid (Ascorbic Acid 500 Mg Tab) 500 mg PO [facility] Stop: 12/26/21 08:59 Last Admin: 11/27/21 08:38 Dose: 500 mg Documented by: [id number] Admin: 11/26/21 08:25 Dose: 500 mg Documented by: [id number] Aspirin (Aspirin 81 Mg Ectab) 81 mg PO [facility] Stop: 12/26/21 08:59 Last Admin: 11/27/21 08:38 Dose: 81 mg Documented by: [id number] Admin: 11/26/21 08:25 Dose: 81 mg Documented by: [id number] Calcium Carbonate (Calcium Carbonate 500 Mg Chewable Tab) 500 mg PO BID [facility] Stop: 12/26/21 20:59 Last Admin: 11/27/21 08:37 Dose: 500 mg Documented by: [id number] Admin: 11/26/21 21:08 Dose: 500 mg Documented by: [id number] Labetalol HCl (Labetalol Hcl Iv 5 Mg/Ml 20ml) 5 mg IV Q4H PRN PRN Reason: hypertension Stop: 12/26/21 17:46 Last Admin: 11/26/21 23:27 Dose: 5 mg Documented by: [id number] Cosigned by: [id number] Pantoprazole Sodium (Pantoprazole 40 Mg Tab) 40 mg PO BID [facility] Stop: 12/26/21 20:59 Last Admin: 11/27/21 08:36 Dose: 40 mg Documented by: [id number] Admin: 11/26/21 21:09 Dose: 40 mg Documented by: [id number] Spironolactone (Spironolactone 25 Mg Tab) 25 mg PO [id number] [facility] Stop: 12/26/21 20:59 Last Admin: 11/27/21 08:36 Dose: 25 mg Documented by: [id number] Admin: 11/26/21 21:08 Dose: 25 mg Documented by: [id number] Coding Level of Care Code 12349 Inpt Consult Level 1 Diagnoses Sensation of swollen throat R68.89
--- NOTE | 2021-11-27 15:31 | Discharge Summary ---
Date of Service November 27, 2021 Admission HPI Per Admitting Provider HISTORY OF PRESENT ILLNESS: This is a 51-year-old male with a past medical history significant for hereditary hemochromatosis, hyperlipidemia, intermittent asthma, hypertension, left ventricular hypertrophy, GERD, nonalcoholic fatty liver disease, chronic cholecystitis, cholelithiasis, history of impacted gallstone, history of noise-induced hearing loss, history of ventral hernia, history of COVID in 08/2021, history of questionable angioedema. The patient is in the ER several times recently as he is not tolerating Blood pressure meds,, comes today because of stroke-like symptoms and chest discomfort and high blood pressure. Patient was diagnosed with possible epiglottitis versus angioedema in end of August. He followed up with ENT and status post laryngoscopy two times which was negative. He also was seen by setup technician, thought to be from lisinopril, but his hereditary angioedema studies seems unremarkable. Was advised to stop lisinopril, he continued to take it until last 1 week ago .He did not tolerate hydrochlorothiazide, Coreg, Toprol, amlodipine and hydralazine and he says after taking these medications, he is feeling some discomfort, feeling swelling in the face and throat and also burning sensation in all his body and tingling and he stopped all those medications. He finished the prednisone tapering course. Saw PCP yesterday, Family doctor told to hold the statins for next 3 months or until his allergy reaction gets resolved. Question of lisinopril causing most of the problem, anyways he stopped taking lisinopril just 1 week ago. He was prescribed spironolactone yesterday. He thinks this could be causing some scratchiness in his throat. Today, he was found to have some mild left facial droop seen by his and his blood pressure running high and burning sensation in the chest, radiating to his arms when his called EMS and brought in here. By the time he was here, his symptoms resolved. Imaging studies are unremarkable, CT of the chest, CTA of the head and neck ok. Talking fine. Somewhat upset, we could not figure out what is going on with him. Denies any headache. No blurred vision. Currently, has some cough, seems afebrile. Denies any shortness of breath, no nausea, no abdominal pain, no diarrhea or constipation. Resting comfortably and hemodynamically stable. ALLERGIES: ATORVASTATIN, CETIRIZINE, SIMVASTATIN, ZOFRAN, BACTRIM, AUGMENTIN, HYDROCHLOROTHIAZIDE. PAST MEDICAL HISTORY: As mentioned above. PAST SURGICAL HISTORY: Colonoscopy, dental surgery, EGD, hemorrhoidectomy, laparoscopic cholecystectomy. MEDICATIONS: The patient is on acetaminophen/caffeine 2 tablets p.o. q. 4 hours p.r.n., ascorbic acid 500 mg p.o. a.m., aspirin 81 mg, Benadryl 25 mg p.o. q. 6 hours p.r.n., Duonebs 3 mL inhalation q.i.d. p.r.n., omeprazole 40 mg p.o. a.m., prochlorperazine 5 mg q. 8 hours p.r.n., spironolactone 25 mg p.o. a.m. FAMILY HISTORY: Significant for mother has allergies, arthritis, asthma. Father had prostate cancer, eye problems, mother has hypertension, aunt has cancer. SOCIAL HISTORY: , former smoker, quit in 2019. Smoked 1 pack a day for 20 years. No alcohol, no drug use. REVIEW OF SYSTEMS: As per HPI. Rest of the review of systems is negative. Admission Exam Per Admitting Provider GENERAL: The patient is obese, not in acute distress. VITAL SIGNS: Temperature 36.0, pulse 77, respiratory rate 20, blood pressure 153/106, oxygen 98% on room air. HEENT: Pupils equal, round and reactive to light. Oral mucosa moist. NECK: No JVD, no neck masses. CARDIOVASCULAR: S1 and S2 heard. Regular rate and rhythm. No murmur, no gallop. RESPIRATORY SYSTEM: Normal AP diameter. No accessory muscle use. No wheezing, no crackles. ABDOMEN: Soft, bowel sounds present, nontender, no distention. CENTRAL NERVOUS SYSTEM: Cranial nerves II-XII grossly intact, nonfocal. Power 5/5 in all extremities. Sensation intact. Position sense intact. Coordination of movements normal. EXTREMITIES: No edema, no erythema. Principal Diagnosis Hypertensive urgency Allergies to medications Discharge Exam GENERAL: Alert and oriented x3. NAD, on RA. HEENT: No pallor, no icterus. Pupils equal, round and reactive to light. Oral mucosa moist. NECK: No JVD, no neck masses. HEART: S1 and S2 heard. Regular rate and rhythm. No murmur, no gallop. RESPIRATORY SYSTEM: Normal AP diameter. No accessory muscle use. No wheezing, no crackles. ABDOMEN: Soft, bowel sounds present, nontender, no distention. CENTRAL NERVOUS SYSTEM: No facial droop. Speech is clear. Obeys simple commands. Moves extremities. EXTREMITIES: No edema, no erythema seen. Discharge Data Allergies Allergy/AdvReac Type Severity Reaction Status Date / Time atorvastatin [From Lipitor] Allergy Severe ELEVATED Verified 11/25/21 12:55 B/P, DRY COUGH, NAUSEA cetirizine [From Zyrtec] Allergy Severe THROAT Verified 11/25/21 12:55 SWELLS simvastatin Allergy Intermediate Swelling Verified 11/25/21 12:55 of Lip/Tongue/Throat verapamil Allergy Intermediate transient Verified 11/26/21 23:37 throat closure, cp as per px ondansetron Allergy Mild RASH Verified 11/25/21 12:55 sulfamethoxazole [Bactrim] Allergy Mild chest hurt Verified 11/25/21 12:55 trimethoprim [Bactrim] Allergy Mild chest hurt Verified 11/25/21 12:55 amoxicillin [From Augmentin] AdvReac Severe Severe Verified 11/25/21 12:55 bloating and abdominal pain clavulanic acid AdvReac Severe Severe Verified 11/25/21 12:55 [From Augmentin] bloating and abdominal pain hydrochlorothiazide AdvReac Intermediate muscle Verified 11/25/21 12:55 pain, confusion, fatigue amlodipine AdvReac Gastrointestinal Verified 11/25/21 17:09 Upset carvedilol [From Coreg] AdvReac Gastrointestinal Verified 11/25/21 17:09 Upset hydralazine AdvReac Chest Pain Verified 11/25/21 17:12 metoprolol AdvReac Gastrointestinal Verified 11/25/21 17:10 Upset Consultations 11/25/21 13:06 ED Decision to Admit Stat 11/25/21 15:48 Consult Cardiology Routine Consult Neurology Routine 11/27/21 10:29 Consult Psychiatry Routine Ordered Studies 11/25/21 10:45 CT angio head w con Stat CT angio neck with con Stat CT head/brain wo con Stat 11/25/21 15:48 MR brain wo/w con Urgent US thyroid Routine Hospital Course (1) Hypertension: (2) Sensation of swollen throat: 51-year-old male with PMH of hereditary hemochromatosis, questionable angioedema, HTN, left ventricular hypertrophy, GERD, intermittent asthma, HLD, NAFLD, chronic cholecystitis, cholelithiasis, impacted gallstone, noise-induced hearing loss, ventral hernia, Covid in 08/2021 presented to our ED 11/25 with complaint of not tolerating various blood pressure medications [has visited ED several times for the same], and this time also developed strokelike symptoms, chest discomfort and high blood pressure. Patient was diagnosed with possible epiglottitis versus angioedema in end of August 2021 s/p laryngoscopy 2 times by ENT which were negative. He was also evaluated by setup technician, thought to be from lisinopril, his hereditary angioedema study seems unremarkable. 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 He was managed for the following while in hospital: #. Left facial droop #. Likely TIA Patient came in with complaint of mild left facial droop [seen by his and EMS] associated with high blood pressure at home and burning sensation in the chest radiating to his arms. By the time he reached ED, his facial droop has improved per records. Admitting CT head, CTA head and neck WNL. Admitting brain MRI: No acute intracranial abnormality. at bedside exam no facial droop appreciated Neurology evaluated, low suspicion for TIA, continue with baby aspirin daily. Follow-up with PCP after discharge. #. Chest discomfort #. Uncontrolled hypertension Patient has been tried on various blood pressure medication, has not tolerated HCTZ, Coreg, Toprol, amlodipine and hydralazine --> patient reports feeling of discomfort/swelling in the face and throat and burning/tingling sensation all over her body and stopped all those medications. Patient presented with burning sensation across the chest radiating to his arms associated with high blood pressure at home. Recent stress test in 06/2021 was unremarkable. Admitting troponin x3: Negative. Admitting EKG: NSR with no acute ST or T changes. 11/26 echo: EF 60 to 65%, mild concentric LVH, LV systolic function normal. No inter-atrial shunt. Cardiology on board, patient was allergic to verapamil, patient tolerating spironolactone and labetalol while in hospital, blood pressure getting better, discussed with cardiology, okay from the point of view for discharge. Continue with spironolactone and labetalol, incorporate healthy diet/low-sodium diet/exercise and lifestyle [patient counseled], maintain blood pressure log at home to take to primary care physician for close monitoring/adjustment of blood pressure medications. Get sleep study done as an outpatient to rule out sleep apnea. If very high blood pressure measured at home, contact immediately your primary care physician or emergency. #. ? Angioedema Was diagnosed with possible epiglottitis versus angioedema at the end of August 2021 status post laryngoscopy 2 times by ENT which were negative. Patient was also evaluated by setup technician, hereditary angioedema study seems unremarkable. Patient was asked to stop lisinopril. 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 Continue with Benadryl as needed. Patient still continues having scratchy/discomfort sensation in the throat On examination, no obvious swelling noted. Continue to monitor. As discussed at the bedside, follow-up with your setup technician as an outpatient for ongoing management of your allergies to various medications. #. Other chronic medical conditions: HLD, GERD, asthma, ongoing nicotine abuse Recent PCP visit, patient told to hold the statin for the next 3 months or until his allergic reaction gets resolved For his GERD, patient is on omeprazole daily and reports taking Tums. Will make PPI twice daily. Continue with/resume home medications as and when appropriate. Nicotine patch. #. DVT prophylaxis: SCDs for now Following instructions were communicated to the patient and his at bedside at the point of discharge: Follow-up with your primary care physician within a week time. Follow-up with your cardiology as an outpatient for your blood pressure medication management. Follow-up with your setup technician for evaluation of your ongoing allergy to medications Get your blood work BMP done in a week time. Monitor your blood pressure and record it at least twice a day, maintain a log of it, and take it to your primary care physician for further evaluation/dose adjustment of your blood pressure medication. As discussed at the bedside, you had GI upset to few blood pressure medication which I doubt are real allergy, still will recommend to follow-up with your setup technician. As discussed at the bedside, if you have very high blood pressure measured at home, please contact emergency or your PCP immediately. Maintain low-salt diet, possible outpatient sleep study [as discussed at the bedside], incorporate exercise and healthy diet in your routine to aid and faci litate blood pressure control. You have been on spironolactone and labetalol while in hospital without any reaction to it, you will be discharged on those 2 medications for blood pressure management. As prescribed by your setup technician, keep your EpiPen always by your side. Take medications as prescribed. Total Time Total Time Spent Total Time Spent (In Minutes): 45 Discharge Plan Discharge Items Patient Disposition: Home - Self-Care Reason For Visit: HTN, FACIAL DROOP? Discharge Diagnosis: Hypertensive urgency Allergic to many medications Low suspicion for TIA Activity: Resume your previous activity Non-emergency contact: Primary Care Provider Call non-emergency contact if: you have any medication questions, your symptoms worsen and your temperature is above 101 Follow-up/Referrals: Bernadine Marmolejo DO [Primary Care Provider] - (Date & Time 12/05/2021 10:00 AM Provider Bernadine Marmolejo DO Department Family Practice [facility] ) Hemalatha Hernandez PA-C [Outside Practitioners] - (Date & Time 12/07/2021 1:00 PM Provider Hemalatha Hernandez PA-C Department Allergy/Immunology [facility] ) Joy Coronel CRNP [Nurse Practitioner] - (Date & Time 12/01/2021 9:00 AM Provider PAT Thao Department Cardiology, [facility] ) Diet: Heart Healthy and Low Sodium (2gm) Addtl Attending Provider Instructions: Follow-up with your primary care physician within a week time. Follow-up with your cardiology as an outpatient for your blood pressure medication management. Follow-up with your setup technician for evaluation of your ongoing allergy to medications Get your blood work BMP done in a week time. Monitor your blood pressure and record it at least twice a day, maintain a log of it, and take it to your primary care physician for further evaluation/dose adjustment of your blood pressure medication. As discussed at the bedside, you had GI upset to few blood pressure medication which I doubt are real allergy, still will recommend to follow-up with your setup technician. As discussed at the bedside, if you have very high blood pressure measured at home, please contact emergency or your PCP immediately. Maintain low-salt diet, possible outpatient sleep study [as discussed at the bedside], incorporate exercise and healthy diet in your routine to aid and facilitate blood pressure control. You have been on spironolactone and labetalol while in hospital without any reaction to it, you will be discharged on those 2 medications for blood pressure management. As prescribed by your setup technician, keep your EpiPen always by your side. Take medications as prescribed. Pending Studies at Discharge: No Stand-Alone Forms: My [facility] Event[employer], Smoking Cessation Medications and DC Order Prescriptions: New spironolactone 25 mg Tablet 25 mg PO [id number] Qty: 60 RF: 0 labetalol 200 mg Tablet 200 mg PO BID Qty: 60 RF: 0 Continued aspirin [Aspir-81] 81 mg Tablet,Delayed Release (Dr/Ec) 81 mg PO DIRECTED PRN (Reason: WHEN NEEDED) RF: 0 Headache Relief (acetam-caff) 500-65 mg Tablet 2 tab PO Q4H PRN (Reason: Headache) RF: 0 diphenhydramine HCl [Benadryl] 25 mg capsule 25 mg PO Q6H PRN (Reason: nausea and vomiting) RF: 0 ipratropium-albuterol 0.5 mg-3 mg(2.5 mg base)/3 mL solution for nebulization 3 ml INHALATION QID PRN (Reason: Shortness Of Breath Or Wheezing) RF: 0 omeprazole 40 mg capsule,delayed release(DR/EC) 40 mg PO QAM RF: 0 prochlorperazine maleate 5 mg tablet 5 mg PO Q8 PRN (Reason: Nausea) RF: 0 ascorbic acid (vitamin C) 500 mg Tablet,Chewable 500 mg PO QAM RF: 0 Discontinued prednisone 20 mg tablet 20 mg PO QAM RF: 0 spironolactone 25 mg tablet 25 mg PO QAM RF: 0 Discharge Orders: Discharge Order (Routine); Ordered 11/27/21 Ordered By: Tommie Painter Admission Data Admit Date/Time: 11/25/21 14:16 Attending Provider: Tommie Painter Admit Provider: Umair Negron Primary Care Provider: Bernadine Marmolejo Other Providers: Umair Negron ; Micha Gilmore ; Jabier Miranda ; David Resendez ; Winston Sawant ; Kendell Barney ; Josiah Garcia ; Myah Rucker ; Melvina Zee ; Joy Coronel ; Nabeel Meadows ; Melvina Choi ; Bryan Carmona ; Melvina Holland ; Spencer Stephens ; Erica Malik ; Katlyn Blas ; Melissa Miles ; Ric Hurley
[2021-11-27] MEDS ORDERED: LABETALOL HCL 200 MG TAB PO SCH (21:00)
== END 2021-11-27 18:38 | disposition home or self-care (01) ==
LOC: 2S 10:27 → ED 10:27 → SUATTDRO 14:16 → 2S 15:16